=== PATIENT | male | born 1955 | race Caucasian/White ===

== ENCOUNTER 2021-05-27 09:14 | Inpatient (IN) | payer MEDICARE, MEDICAID ==
[~2021-05-27] VITALS: Ht 182.9 cm; Wt 86.6 kg
--- NOTE | 2021-05-27 09:14 | NUR ---
PT [facility] FROM [facility] C/O AGITATION WHILE ON DIALYSIS. PT GOT 1 AND 1/2 HOUR OF DIALYSIS. PT IS AAOX1. NOT IN RESPIRATORY DISTRESS, V/S STABLE, KEPT RESTED AND COMFORTABLE. WILL CONTINUE TO MONITOR.
--- NOTE | 2021-05-27 09:29 | NUR ---
SEEN AND EXAMINED BY DR FELTON
--- NOTE | 2021-05-27 09:35 | NUR ---
PATIENT SCREAMING AND ASKING FOR FOOD
[2021-05-27] MEDS ORDERED: ZIPRASIDONE MESYLATE 20 MG/VIAL VIAL IM ONE ×4 (09:36→12:00)
--- NOTE | 2021-05-27 09:50 | NUR ---
AUTO INSPECTION SPECIALIST AT BEDSIDE
--- NOTE | 2021-05-27 10:20 | NUR ---
COVID SWAB DONE AND SENT TO LAB
--- NOTE | 2021-05-27 10:24 | NUR ---
ER PHLEB AT BEDSIDE FOR BLOOD DRAW.
[2021-05-27 10:44] LABS: BASOPHILS % (AUTO) 0.7 % (0.0-2.0); EOSINOPHILS % (AUTO) 2.4 % (0.0-6.0); HEMATOCRIT 25 % (39-51); HEMOGLOBIN 8.3 g/dL (13.5-17.5); LYMPHOCYTES # (AUTO) 1.3 K/uL (0.8-4.8); LYMPHOCYTES % (AUTO) 18.6 % (20.0-44.0); MEAN CORPUSCULAR HGB CONC 34 g/dl (31.0-36.0); MEAN CORPUSCULAR VOLUME 94 fL (80-96); MONOCYTES # (AUTO) 1.6 K/uL (0.1-1.30); MONOCYTES % (AUTO) 24.2 % (2.0-12.0); NEUTROPHILS # (AUTO) 3.7 K/uL (1.8-8.9); NEUTROPHILS % (AUTO) 54.1 % (43.0-81.0); PLATELET COUNT (AUTO) 136 K/uL (150-450); RED BLOOD CELL COUNT(AUTO) 2.61 MIL/uL (4.5-6.0); WHITE BLOOD COUNT (AUTO) 6.8 K/uL (4.3-11.0)
[2021-05-27 11:17] LABS: CALCIUM, SERUM 7.1 mg/dL (8.5-10.1); CREATININE 5.6 mg/dL (0.6-1.3); POTASSIUM 4.1 mmol/L (3.5-5.1)
[2021-05-27] MEDS ORDERED: WATER FOR INJECTION,STERILE 10 ML ONE (11:36)
--- NOTE | 2021-05-27 12:37 | NUR ---
LUNCH TRAY PROVIDED. TOLERATED WELL
--- NOTE | 2021-05-27 12:41 | NUR ---
report given to pauline abraham for kim.
[2021-05-27 13:31] LABS: ACETAMINOPHEN 3 ug/ml (10-30); ALCOHOL, BLOOD < 3 mg/dL (0-0)
[2021-05-27 15:28] LABS: EOSINOPHILS % (MANUAL) 3 % (0-4); LYMPHOCYTES % (MANUAL) 12 % (16-48); MONOCYTES % (MANUAL) 21 % (0-11.0); NEUTROPHILS % (MANUAL) 64 (42-76)
--- NOTE | 2021-05-27 15:29 | NUR ---
[facility] CALLED ETA 60 MINS.
[2021-05-27] MEDS ORDERED: ACETAMINOPHEN 325 MG TABLET PO PRN (15:30)
[2021-05-27] MEDS ORDERED: ZOLPIDEM TARTRATE 5 MG TABLET PO PRN (15:30)
[2021-05-27] MEDS ORDERED: Z GUARD REMEDY 4 OZ OINT TP PRN (15:30)
[2021-05-27] MEDS ORDERED: MAGNESIUM HYDROXIDE 30 ML UDC PO PRN (15:30)
[2021-05-27] MEDS ORDERED: MAG HYDROX/AL HYDROX/SIMETH 30 ML UDC PO PRN (15:30)
[2021-05-27] MEDS ORDERED: ONDANSETRON HCL/PF 4 MG/2 ML VIAL IVP PRN (15:30)
--- NOTE | 2021-05-27 15:40 | NUR ---
REPORT GIVEN TO RAH KEE OF [facility].
--- NOTE | 2021-05-27 16:54 | NUR ---
REPORT GIVEN TO EMT FOR PT TRANSFER TO [facility].
[2021-05-27 16:55] VITALS: BP 145/87
== END 2021-05-27 17:55 | DRG 885 ==
LOC: MERGE 09:14 → ER 09:59 → TELE 12:27
PROVIDERS: ADMIT Family Medicine; ATTEND Family Medicine
DX: F25.9 Schizoaffective disorder, unspecified (principal); N18.6 End stage renal disease; G93.41 Metabolic encephalopathy; F05 Delirium due to known physiological condition; E83.51 Hypocalcemia; E11.22 Type 2 diabetes mellitus with diabetic chronic kidney disease; Z99.2 Dependence on renal dialysis; Z20.822 Contact with and (suspected) exposure to COVID-19; J44.9 Chronic obstructive pulmonary disease, unspecified; G40.909 Epilepsy, unspecified, not intractable, without status epilepticus; Z86.711 Personal history of pulmonary embolism; R26.9 Unspecified abnormalities of gait and mobility; M19.90 Unspecified osteoarthritis, unspecified site; Z86.718 Personal history of other venous thrombosis and embolism; Z88.8 Allergy status to other drugs, medicaments and biological substances; F41.9 Anxiety disorder, unspecified; D63.8 Anemia in other chronic diseases classified elsewhere; Z91.19 Patient's noncompliance with other medical treatment and regimen
CPT/HCPCS: 36415; 71045-TC; 80048-TC; 85025-TC; C9803; G0378; G0480; J3486

== ENCOUNTER 2021-05-30 12:32 | Inpatient (IN) | payer MEDICARE, OTHER ==
[~2021-05-30] VITALS: Ht 182.9 cm; Wt 88.5 kg
[~2021-05-30 12:32] MED LIST: ACET325T53 PO; AMIN887L PO; ASCO500C17 PO; BENZ1TAB7 PO; DIVA250T PO; FERR325T23 PO; LEVE500T9 PO; MAGN400O6 PO; MINE133E RC; MULT-439 PO; PHEN100C4 PO; RISP1TAB7 PO
--- NOTE | 2021-05-30 12:35 | NUR ---
TO ER BED 11. BIB [facility] FOR R FEMORAL PERMACATH MALFUNCTION. PT ATTACHED TO MONITOR. BRATHING IS EVEN AND UNLABORED ON ROOM AIR. WARM BLANKET PROVIDED FOR COMFORT. WILL CONTINUE TO MONITOR.
--- NOTE | 2021-05-30 12:54 | NUR ---
COVID TEST COLLECTED AND SENT
[2021-05-30 13:03] LABS: BASOPHILS # (AUTO) 0.1 K/uL (0.0-0.2); BASOPHILS % (AUTO) 1.2 % (0.0-2.0); EOSINOPHILS % (AUTO) 6.3 % (0.0-6.0); HEMATOCRIT 25 % (39-51); HEMOGLOBIN 8.1 g/dL (13.5-17.5); LYMPHOCYTES # (AUTO) 1.6 K/uL (0.8-4.8); LYMPHOCYTES % (AUTO) 26.2 % (20.0-44.0); MEAN CORPUSCULAR HGB CONC 33 g/dl (31.0-36.0); MEAN CORPUSCULAR VOLUME 97 fL (80-96); MONOCYTES # (AUTO) 0.7 K/uL (0.1-1.30); NEUTROPHILS # (AUTO) 3.4 K/uL (1.8-8.9); NEUTROPHILS % (AUTO) 55.3 % (43.0-81.0); PLATELET COUNT (AUTO) 177 K/uL (150-450); RED BLOOD CELL COUNT(AUTO) 2.55 MIL/uL (4.5-6.0); WHITE BLOOD COUNT (AUTO) 6.2 K/uL (4.3-11.0)
[2021-05-30] MEDS ORDERED: SEVE800T8 PO (13:14)
[2021-05-30] MEDS ORDERED: ACET-868 PO (13:14)
[2021-05-30] MEDS ORDERED: DIVA125C2 PO (13:14)
[2021-05-30] MEDS ORDERED: AMIN30LI2 PO (13:14)
[2021-05-30] MEDS ORDERED: LORA2VIA11 IM (13:14)
[2021-05-30] MEDS ORDERED: FOLI0.8T2 PO (13:14)
[2021-05-30] MEDS ORDERED: PHEN100C4 PO (13:14)
[2021-05-30] MEDS ORDERED: POVI3780 TP (13:14)
[2021-05-30] MEDS ORDERED: BISA10SU11 RC (13:14)
[2021-05-30] MEDS ORDERED: LEVE500T9 PO (13:14)
[2021-05-30] MEDS ORDERED: ASCO-495 PO (13:14)
[2021-05-30] MEDS ORDERED: BENZ1TAB7 PO (13:14)
[2021-05-30] MEDS ORDERED: MAGN400O6 PO (13:14)
[2021-05-30] MEDS ORDERED: LORA-259 PO (13:14)
[2021-05-30] MEDS ORDERED: MAG30ORA PO (13:14)
[2021-05-30] MEDS ORDERED: FERR325T23 PO (13:14)
[2021-05-30 13:19] LABS: CALCIUM, SERUM 7.8 mg/dL (8.5-10.1); CREATININE 6.5 mg/dL (0.6-1.3); POTASSIUM 5.1 mmol/L (3.5-5.1)
--- NOTE | 2021-05-30 13:58 | NUR ---
FOOD PROVIDED TO PT
[2021-05-30] MEDS ORDERED: LORAZEPAM INJ 2 MG/ML VIAL IV PRN (14:00)
[2021-05-30] MEDS ORDERED: BISACODYL SUPP (10 MG) 10 MG/SUPP.RECT SUPP.RECT RC PRN (14:00)
[2021-05-30] MEDS ORDERED: ACETAMINOPHEN 325 MG TABLET PO PRN (14:00)
[2021-05-30] MEDS ORDERED: MAG HYDROX/AL HYDROX/SIMETH 30 ML UDC PO PRN (14:00)
--- NOTE | 2021-05-30 14:48 | NUR ---
bed assigned 325-1
--- NOTE | 2021-05-30 14:56 | NUR ---
REPORT GIVEN TO GRAY FOR STEVEN
--- NOTE | 2021-05-30 15:07 | NUR ---
PT TRANSPORTED TO [facility] IN STABLE CONDITION
[2021-05-30] MEDS: FERROUS SULFATE (325 MG) 325 MG/TAB TABLET PO SCH (17:31)
[2021-05-30] MEDS: SEVELAMER CARBONATE 800 MG TABLET PO SCH (17:31)
[2021-05-30] MEDS: LEVETIRACETAM (250 MG) 250 MG TABLET PO SCH (17:31)
[2021-05-30] MEDS: PROSOURCE / PROSTAT (PYXIS) 30 ML UDC GT SCH (17:32)
[2021-05-30 18:00] VITALS: BP 148/94
[2021-05-30] MEDS: PHENYTOIN EXTENDED RELEASE 100 MG CAPSULE PO SCH (18:24)
--- NOTE | 2021-05-30 19:45 | NUR ---
TRAVEL REGISTERED NURSE PACU OPENING NOTES PATIENT RECEIVED RESTING IN BED, SLEEPING, EASILY AROUSABLE; A/OX2-3; BREATHING EVEN AND UNLABORED; NO SOB NOTED; NO DISTRESS NOTED; TOLERATING ROOM AIR WELL; PATIENT ABLE TO MAKE NEEDS KNOWN; TELE MONITOR READS NSR 70S; LAC #20 INTACT AND PATENT, FLUSHING WELL; MIDLINE NOT FLUSHING; MD AWARE, CHARGE NURSE AWARE; WILL OBTAIN CONSENT FOR LONG-TERM PERMACATH PLACEMENT TONIGHT; PATIENT IS AWARE HE IS IN NEED OF PERMACATH PLACEMENT IN ORDER TO RECEIVE HEMODIALYSIS; SAFETY PRECAUTIONS IMPLEMENTED; BED LOCKED IN LOW POSITION; SIDE RAILS X2 UP; CALL LIGHT WITHIN REACH; WILL CONT TO MONITOR
[2021-05-30 20:00] VITALS: BP_SYST 102; BP_SYST 139; BP_DIAS 45; BP_DIAS 89
[2021-05-30] MEDS: BENZTROPINE MESYLATE (1 MG) 1 MG TABLET PO SCH (21:32)
[2021-05-30] MEDS: DIVALPROEX SODIUM 125 MG CAP.SPRINK PO SCH (21:32)
--- NOTE | 2021-05-30 21:40 | NUR ---
GARMENT INSPECTOR NOTES OBTAINED CONSENT FROM PATIENT FOR PERMACATH PLACEMENT; PATIENT ABLE TO SIGN ON HIS OWN; WITNESSED BY FRANCE Manuel RN WELL; CHARGE NURSE AWARE;
[2021-05-31] VITALS: BP 144/71
--- NOTE | 2021-05-31 01:47 | NUR ---
ARTIST SUSPECT NOTES PATIENT ATTEMPTING TO GET OUT OF BED ON HIS OWN; PATIENT WOKE UP AND VERBALIZED HE NEEDED TO USE THE RESTROOM; NUCLEAR LOGGING ENGINEER AWARE AND AT BEDSIDE, ASSISTING PATIENT. PATIENT HAS UNSTEADY GAIT; FALL RISK; SAFETY PRECAUTIONS IMPLEMENTED; WILL CONT TO MONITOR
[2021-05-31 04:00] VITALS: BP 139/85
--- NOTE | 2021-05-31 07:01 | NUR ---
TUBER MACHINE CUTTER CLOSING NOTES PATIENT RESTING IN BED, SLEEPING, EASILY AROUSABLE; A/OX2-3; BREATHING EVEN AND UNLABORED; NO SOB NOTED; NO DISTRESS NOTED; TOLERATING ROOM AIR WELL; PATIENT ABLE TO MAKE NEEDS KNOWN; TELE MONITOR READS NSR 70S; LAC #20 INTACT AND PATENT, FLUSHING WELL; MIDLINE NOT FLUSHING; MD AWARE, CHARGE NURSE AWARE; CONSENT FOR LONG-TERM PERMACATH PLACEMENT OBTAINED ALL NEEDS RENDERED; SAFETY PRECAUTIONS IMPLEMENTED; BED LOCKED IN LOW POSITION; SIDE RAILS X2 UP; CALL LIGHT WITHIN REACH; WILL ENDORSE STEVEN TO ONCOMING SHIFT
--- NOTE | 2021-05-31 07:40 | NUR ---
TOP TRIMMER OPENING NOTES PATIENT RESTING IN BED, AWAKE; A/OX2; BREATHING EVEN AND UNLABORED; NO SOB NOTED; NO DISTRESS NOTED; TOLERATING ROOM AIR WELL; PATIENT ABLE TO MAKE NEEDS KNOWN; TELE MONITOR READS NSR 77; LAC #20 INTACT AND PATENT, FLUSHING WELL; MIDLINE NOT FLUSHING; MD AWARE. CONSENT FOR LONG-TERM PERMACATH PLACEMENT OBTAINED. SAFETY PRECAUTIONS IMPLEMENTED; BED LOCKED IN LOW POSITION; SIDE RAILS X2 UP; CALL LIGHT WITHIN REACH; WILL CONTINUE TO MONITOR PATIENT.
[2021-05-31 08:20] VITALS: BP 153/64
[2021-05-31] MEDS: ASCORBIC ACID 500 MG TABLET PO SCH (08:49)
[2021-05-31] MEDS: FERROUS SULFATE (325 MG) 325 MG/TAB TABLET PO SCH ×2 (08:49→17:00)
[2021-05-31] MEDS: MAGNESIUM HYDROXIDE 30 ML UDC PO SCH (08:50)
[2021-05-31] MEDS: LEVETIRACETAM (250 MG) 250 MG TABLET PO SCH ×2 (08:50→17:00)
[2021-05-31] MEDS: VIT B CMPLX 3/FA/VIT C/BIOTIN 1 TAB TABLET PO SCH (08:51)
[2021-05-31] MEDS: PHENYTOIN EXTENDED RELEASE 100 MG CAPSULE PO SCH ×3 (08:51→17:00)
[2021-05-31] MEDS: PROSOURCE / PROSTAT (PYXIS) 30 ML UDC GT SCH ×3 (08:51→17:00)
[2021-05-31] MEDS: DIVALPROEX SODIUM 125 MG CAP.SPRINK PO SCH ×2 (08:51→20:52)
[2021-05-31] MEDS: SEVELAMER CARBONATE 800 MG TABLET PO SCH ×3 (08:51→17:14)
[2021-05-31] MEDS: BETADINE TP SCH (08:53)
[2021-05-31 12:12] VITALS: BP 141/63
[2021-05-31 16:10] VITALS: BP 171/76
--- NOTE | 2021-05-31 18:41 | NUR ---
SAND TEMPERER CLOSING NOTES PATIENT RESTING IN BED, ASLEEP, AWAKEN EASILY; A/OX2; BREATHING EVEN AND UNLABORED; NO SOB NOTED; NO DISTRESS NOTED; TOLERATING ROOM AIR WELL; PATIENT ABLE TO MAKE NEEDS KNOWN; TELE MONITOR READS NSR 90; LAC #20 INTACT AND PATENT, FLUSHING WELL; MIDLINE NOT FLUSHING; MD AWARE. CONSENT FOR LONG-TERM PERMACATH PLACEMENT IN PLACE. ALL NEEDS ATTENDED DURING THE DAY. SAFETY PRECAUTIONS IMPLEMENTED; BED LOCKED IN LOW POSITION; SIDE RAILS X2 UP; CALL LIGHT WITHIN REACH; WILL ENDORSE TO RECEIVING WEIGHER NURSE FOR STEVEN.
--- NOTE | 2021-05-31 19:30 | NUR ---
LAG SCREWER OPENING NOTES RECEIVED PATIENT ON BED, AWAKE, ALERT AND ORIENTED X 3. BREATHING IS EVEN AND NONLABORED. ON TELEMETRY MONITORING VIA EXTERNAL PRESS AND BLOW MACHINE TENDER; SINUS RHYTHM 86. WITH IV ACCESS ON LAC G20; SALINE LOCKED; DRY AND INTACT. CALL LIGHT AND TABLE WITHIN REACH. SIDE RAILS UP X 2. BED PLACED IN LOWEST LOCKED POSITION. SAFETY MEASURES MAINTAINED. WILL CONTINUE TO MONITOR
[2021-05-31 20:00] VITALS: BP_SYST 132; BP_SYST 137; BP_DIAS 84; BP_DIAS 89
[2021-05-31] MEDS: BENZTROPINE MESYLATE (1 MG) 1 MG TABLET PO SCH (21:45)
[2021-06-01] VITALS: BP 143/70
[2021-06-01 04:00] VITALS: BP 146/76
--- NOTE | 2021-06-01 06:25 | NUR ---
PEDIATRIC ONCOLOGY NURSE CLOSING NOTES PATIENT IS ON BED; AWAKE, ALERT AND ORIENTED X 2-3. BREATHING IS EVEN AND NONLABORED. NO SOB NOTED. NO DISTRESS NOTED. ON ROOM AIR; TOLERATING WELL. ABLE TO MAKE NEEDS KNOWN. DENIES ANY PAIN. ON TELE MONITOR WITH READING OF NSR 68; WITH IV ACCESS AT LAC G20; INTACT, DRY AND PATENT; SALINE LOCKED. ML NOT FLUSHING. MD AWARE. NEEDS ATTENDED. SAFETY AND FALL PRECAUTIONS IMPLEMENTED; CALL LIGHT AND TABLE WITHIN REACH. SIDE RAILS UP X 2. BED PLACED IN LOWEST LOCKED POSITION. WILL ENDORSED TO MORNING SHIFT FOR CONTINUITY OF CARE.
[2021-06-01 06:44] LABS: BASOPHILS # (AUTO) 0.1 K/uL (0.0-0.2); BASOPHILS % (AUTO) 1.8 % (0.0-2.0); EOSINOPHILS % (AUTO) 5.5 % (0.0-6.0); HEMATOCRIT 23 % (39-51); HEMOGLOBIN 7.7 g/dL (13.5-17.5); LYMPHOCYTES # (AUTO) 1.8 K/uL (0.8-4.8); LYMPHOCYTES % (AUTO) 30.8 % (20.0-44.0); MEAN CORPUSCULAR HGB CONC 34 g/dl (31.0-36.0); MEAN CORPUSCULAR VOLUME 93 fL (80-96); MONOCYTES # (AUTO) 0.7 K/uL (0.1-1.30); MONOCYTES % (AUTO) 12.2 % (2.0-12.0); NEUTROPHILS # (AUTO) 2.8 K/uL (1.8-8.9); NEUTROPHILS % (AUTO) 49.7 % (43.0-81.0); PLATELET COUNT (AUTO) 149 K/uL (150-450); RED BLOOD CELL COUNT(AUTO) 2.42 MIL/uL (4.5-6.0); WHITE BLOOD COUNT (AUTO) 5.7 K/uL (4.3-11.0)
--- NOTE | 2021-06-01 07:30 | NUR ---
DIGITAL STRATEGIST OPENING NOTES RECEIVED PATIENT ON BED AWAKE AND A/O X2-3. ON ROOM AIR TOLERATING WELL. NO SOB NOTED. NOT IN DISTRESS. WITH NO COMPLAINTS OF PAIN OR DISCOMFORT AT THIS TIME. WITH IV ACCESS AT LEFT AC G20 SALINE LOCKED, PATENT AND INTACT. ON TELE MONITOR CURRENTLY READING SINUS RHYTHM AT 62BPM. SAFETY MEASURES IN PLACED. CALL LIGHT WITHIN REACH. BED ON LOWEST LOCKED POSITION, SIDE RAILS UP X2. WILL CONTINUE TO MONITOR.
[2021-06-01 07:40] LABS: CALCIUM, SERUM 7.7 mg/dL (8.5-10.1); CREATININE 6.7 mg/dL (0.6-1.3); PHOSPHORUS 4.7 mg/dL (2.5-4.9); POTASSIUM 4.7 mmol/L (3.5-5.1)
[2021-06-01 08:00] VITALS: BP 159/94
[2021-06-01] MEDS: BETADINE TP SCH (09:00)
[2021-06-01] MEDS: DIVALPROEX SODIUM 125 MG CAP.SPRINK PO SCH ×2 (09:42→21:13)
[2021-06-01] MEDS: MAGNESIUM HYDROXIDE 30 ML UDC PO SCH (09:42)
[2021-06-01] MEDS: FERROUS SULFATE (325 MG) 325 MG/TAB TABLET PO SCH ×2 (09:42→17:01)
[2021-06-01] MEDS: VIT B CMPLX 3/FA/VIT C/BIOTIN 1 TAB TABLET PO SCH (09:43)
[2021-06-01] MEDS: ASCORBIC ACID 500 MG TABLET PO SCH (09:43)
[2021-06-01] MEDS: LEVETIRACETAM (250 MG) 250 MG TABLET PO SCH ×2 (09:43→17:01)
[2021-06-01] MEDS: PHENYTOIN EXTENDED RELEASE 100 MG CAPSULE PO SCH ×3 (09:43→17:01)
[2021-06-01] MEDS: SEVELAMER CARBONATE 800 MG TABLET PO SCH ×3 (09:44→17:01)
[2021-06-01] MEDS: PROSOURCE / PROSTAT (PYXIS) 30 ML UDC GT SCH ×3 (09:45→18:28)
[2021-06-01] MEDS: LORAZEPAM 1 MG TABLET PO PRN (10:45)
[2021-06-01] MEDS ORDERED: ANESTHESIA TRAY IN PYXIS 1 EA TRAY MC ONE (14:26)
[2021-06-01] MEDS ORDERED: IOHEXOL 240MG/ML 0 ML IV ONE (14:26)
[2021-06-01] MEDS ORDERED: LIDOCAINE 1% INJ 50 ML MDV IJ ONE (14:27)
[2021-06-01] MEDS ORDERED: HEPARIN SODIUM, PORCINE 1,000 UNIT/ML VIAL ONE (14:27)
[2021-06-01] MEDS ORDERED: FENTANYL PF 100MCG/2ML AMPUL ONE (14:40)
[2021-06-01 16:00] VITALS: BP 154/72
--- NOTE | 2021-06-01 19:05 | NUR ---
ENTRY LEVEL MANAGEMENT CLOSING NOTES PATIENT ON BED AWAKE AND A/O X2-3. ON ROOM AIR TOLERATING WELL. NO SOB NOTED. NOT IN DISTRESS. WITH NO COMPLAINTS OF PAIN OR DISCOMFORT AT THIS TIME. WITH IV ACCESS AT LEFT AC G20 SALINE LOCKED, PATENT AND INTACT. ON TELE MONITOR CURRENTLY READING SINUS RHYTHM AT 60BPM. DUE MEDS GIVEN. SAFETY MEASURES IN PLACED. CALL LIGHT WITHIN REACH. BED ON LOWEST LOCKED POSITION, SIDE RAILS UP X2. WILL ENDORSE TO NEXT SHIFT FOR STEVEN.
--- NOTE | 2021-06-01 19:30 | NUR ---
DIVIDER OPERATOR NOTES SR-76 ON TELE MONITOR,RECEIVED ON BED A/O X2-3,SLEEPING,AROUSABLE TO VERBAL STIMULI.HD NURSE AT BEDSIDE.PATIENT S/O RIGHT CHEST WALL PERMA CATH PLACEMENT,OKAY TO USE FOR HD TREATMENT TODAY.REPORTED BY WAGNER LOWE,PATIENT REFUSED VITAL SIGNS.AMBULATE WITH STANDBY ASSIST.SALINE LOCK LEFT AC INTACT AND PATENT.CALL LIGHT IN REACH,NEEDS ANTICIPATED.
[2021-06-01 20:00] VITALS: BP 164/69
[2021-06-01] MEDS: BENZTROPINE MESYLATE (1 MG) 1 MG TABLET PO SCH (21:13)
--- NOTE | 2021-06-01 22:40 | NUR ---
PODIATRY ASSISTANT NOTES COMPLETED 3 HOURS OF HD TREATMENT,TOLERATED WELL.,TAKEN OUT 2LITERS.NO SOB NOTED,VITAL SIGNS STABLE.
[2021-06-02] VITALS: BP 129/87
[2021-06-02 06:31] LABS: BASOPHILS # (AUTO) 0.1 K/uL (0.0-0.2); BASOPHILS % (AUTO) 1.3 % (0.0-2.0); EOSINOPHILS % (AUTO) 4.8 % (0.0-6.0); HEMATOCRIT 23 % (39-51); LYMPHOCYTES # (AUTO) 1.3 K/uL (0.8-4.8); MEAN CORPUSCULAR HGB CONC 34 g/dl (31.0-36.0); MEAN CORPUSCULAR VOLUME 93 fL (80-96); MONOCYTES # (AUTO) 0.7 K/uL (0.1-1.30); MONOCYTES % (AUTO) 11.7 % (2.0-12.0); NEUTROPHILS # (AUTO) 3.4 K/uL (1.8-8.9); NEUTROPHILS % (AUTO) 59.2 % (43.0-81.0); PLATELET COUNT (AUTO) 182 K/uL (150-450); WHITE BLOOD COUNT (AUTO) 5.8 K/uL (4.3-11.0)
--- NOTE | 2021-06-02 06:31 | NUR ---
BENEFITS OFFICER NOTES IN ROOM SLEEPING,AROUSABLE TO VERBAL STIMULI,BREATHING REGULAR,NOT IN ANY FORM OF DISTRESS,POSSIBLE HD AGAIN TODAY BEFORE DISCHARGE.NO FALL,NO INJURY,IN NO ACUTE DISTRESS.CALL LIGHT IN REACH,NEEDS ATTENDED
--- NOTE | 2021-06-02 07:37 | NUR ---
LOG FEEDER OPENING NOTES RECEIVED PATIENT IN BED RESTING, A/O X2-3. ON ROOM AIR TOLERATING WELL WITH NO S/SX OF RESPIRATORY DISTRESS NOTED. NO COMPLAINT OF PAIN VERBALIZED AT THIS TIME. LAC G#20 SALINE LOCKED, INTACT AND PATENT. ON TELE MONITOR CURRENTLY READING SR 65 BPM. SAFETY MEASURES IN PLACE: BED IN LOWEST POSITION, WHEELS ARE LOCKED, SIDE RAILS UP X2, CALL LIGHT WITHIN REACH. PATIENT RECEIVED HD YESTERDAY WITH 2L OUTPUT, PLAN TO HAVE HD AGAIN TODAY. WILL CONTINUE PLAN OF CARE
[2021-06-02 08:00] VITALS: BP 133/55
[2021-06-02] MEDS: SEVELAMER CARBONATE 800 MG TABLET PO SCH ×2 (08:09→13:37)
[2021-06-02] MEDS: VIT B CMPLX 3/FA/VIT C/BIOTIN 1 TAB TABLET PO SCH (08:09)
[2021-06-02] MEDS: PHENYTOIN EXTENDED RELEASE 100 MG CAPSULE PO SCH ×3 (08:09→17:00)
[2021-06-02] MEDS: FERROUS SULFATE (325 MG) 325 MG/TAB TABLET PO SCH ×2 (08:09→17:00)
[2021-06-02] MEDS: LEVETIRACETAM (250 MG) 250 MG TABLET PO SCH ×2 (08:09→17:00)
[2021-06-02] MEDS: MAGNESIUM HYDROXIDE 30 ML UDC PO SCH (08:09)
[2021-06-02] MEDS: ASCORBIC ACID 500 MG TABLET PO SCH (08:10)
[2021-06-02] MEDS: DIVALPROEX SODIUM 125 MG CAP.SPRINK PO SCH (08:10)
[2021-06-02 08:46] LABS: CALCIUM, SERUM 7.7 mg/dL (8.5-10.1); CREATININE 5.1 mg/dL (0.6-1.3)
[2021-06-02] MEDS: PROSOURCE / PROSTAT (PYXIS) 30 ML UDC GT SCH ×3 (09:00→17:00)
[2021-06-02] MEDS: BETADINE TP SCH (09:00)
[2021-06-02 10:06] LABS: POTASSIUM 4.8 mmol/L (3.5-5.1)
[2021-06-02 12:00] VITALS: BP 127/71
[2021-06-02] MEDS: LORAZEPAM 1 MG TABLET PO PRN (14:55)
--- NOTE | 2021-06-02 18:00 | NUR ---
CRUISE AGENT NOTES PATIENT IS MEDICALLY STABLE FOR DC. WILL BE GOING TO [facility]. CALLED AND GAVE REPORT TO RAH NUÑEZ. PATIENT WAS EDUCATED ON DISCHARGE INSTRUCTIONS. PATIENT VERBALIZED UNDERSTANDING OF CARE. EXIT CARE PACKET WAS PROVIDED. WILL CONTINUE HD AND MEDICATIONS AT SNF. ALL LINES REMOVED AND DOCUMENTS SIGNED. PATIENT WAS TRANSPORTED VIA GURNEY/AMBULANCE ACCOMPANIED BY 2 EMT.
== END 2021-06-02 18:14 | DRG 673 ==
LOC: ER 12:39 → TELE 14:52
PROVIDERS: ADMIT Nurse Practitioner Acute Care; ATTEND Nurse Practitioner Acute Care
PROC: 0JHD3XZ Insertion of Tunneled Vascular Access Device into Right Upper Arm Subcutaneous Tissue and Fascia, Percutaneous Approach (ICD-10-PCS; principal; 2021-06-01)
PROC: 05HM33Z Insertion of Infusion Device into Right Internal Jugular Vein, Percutaneous Approach (ICD-10-PCS; 2021-06-01)
PROC: B513YZA Fluoroscopy of Right Jugular Veins using Other Contrast, Guidance (ICD-10-PCS; 2021-06-01)
PROC: 5A1D70Z Performance of Urinary Filtration, Intermittent, Less than 6 Hours Per Day (ICD-10-PCS; 2021-06-01)
DX: T82.41XA Breakdown (mechanical) of vascular dialysis catheter, initial encounter (principal); N18.6 End stage renal disease; G93.40 Encephalopathy, unspecified; Y71.2 Prosthetic and other implants, materials and accessory cardiovascular devices associated with adverse incidents; G40.909 Epilepsy, unspecified, not intractable, without status epilepticus; F25.9 Schizoaffective disorder, unspecified; Z20.822 Contact with and (suspected) exposure to COVID-19; Y92.129 Unspecified place in nursing home as the place of occurrence of the external cause; Z99.2 Dependence on renal dialysis; J44.9 Chronic obstructive pulmonary disease, unspecified; Z86.711 Personal history of pulmonary embolism; M19.90 Unspecified osteoarthritis, unspecified site; F41.9 Anxiety disorder, unspecified; D53.9 Nutritional anemia, unspecified; F31.9 Bipolar disorder, unspecified; Z79.899 Other long term (current) drug therapy; R26.9 Unspecified abnormalities of gait and mobility
CPT/HCPCS: 36415; 71045-TC; 80048-TC; 80185-TC; 84100-TC; 85025-TC; 85730-TC; 86706; 86850-TC; 87081-TC; 87340; 90935-TC; 97116-TC; 97530-TC; C1750; C1757; C1769; C1894; C9803; G0378; J0690; J1644; J2704; J3010; J3490; J7030; Q9966

== ENCOUNTER 2021-07-14 21:24 | Inpatient (IN) | payer MEDICARE, OTHER ==
[~2021-07-14] VITALS: Ht 175.3 cm; Wt 86.2 kg
[~2021-07-14 21:24] MED LIST changes: +ACET-868 PO; +AMIN30LI2 PO; +ASCO-495 PO; +BISA10SU11 RC; +DIVA125C2 PO; +FOLI0.8T2 PO; +LORA-259 PO; +LORA2VIA11 IM; +MAG30ORA PO; +POVI3780 TP; +SEVE800T8 PO
--- NOTE | 2021-07-14 21:33 | NUR ---
[facility] FROM [facility] PER DR MAYES, HGB 7.0 HCT 19.9. PT A/O X2. MD TO SEE PT
[2021-07-14 22:39] LABS: BASOPHILS # (AUTO) 0.1 K/uL (0.0-0.2); BASOPHILS % (AUTO) 1.4 % (0.0-2.0); EOSINOPHILS % (AUTO) 5.1 % (0.0-6.0); LYMPHOCYTES # (AUTO) 2.2 K/uL (0.8-4.8); LYMPHOCYTES % (AUTO) 37.4 % (20.0-44.0); MEAN CORPUSCULAR HGB CONC 34 g/dl (31.0-36.0); MEAN CORPUSCULAR VOLUME 95 fL (80-96); MONOCYTES # (AUTO) 0.6 K/uL (0.1-1.30); MONOCYTES % (AUTO) 11.2 % (2.0-12.0); NEUTROPHILS # (AUTO) 2.6 K/uL (1.8-8.9); NEUTROPHILS % (AUTO) 44.9 % (43.0-81.0); PLATELET COUNT (AUTO) 183 K/uL (150-450); WHITE BLOOD COUNT (AUTO) 5.8 K/uL (4.3-11.0)
[2021-07-14 22:44] LABS: RED BLOOD CELL COUNT(AUTO) 1.94 MIL/uL (4.5-6.0)
[2021-07-14 22:48] LABS: HEMATOCRIT 18 % (39-51); HEMOGLOBIN 6.2 g/dL (13.5-17.5)
--- NOTE | 2021-07-14 22:48 | NUR ---
CRITICAL LAB HGB 6.2, HCT 18. MD AWARE
[2021-07-14 23:09] LABS: ALBUMIN 2.5 g/dL (3.4-5.0); BILIRUBIN,DIRECT 0.1 mg/dL (0.0-0.2); BILIRUBIN,TOTAL 0.2 mg/dL (0.2-1.0); CALCIUM, SERUM 8.7 mg/dL (8.5-10.1); POTASSIUM 5.1 mmol/L (3.5-5.1); TOTAL PROTEIN, SERUM 5.5 g/dL (6.4-8.2)
--- NOTE | 2021-07-14 23:17 | NUR ---
COVID SWAB COLLECTED AND SENT
[2021-07-14] MEDS ORDERED: MAGNESIUM HYDROXIDE 30 ML UDC PO PRN (23:30)
[2021-07-14] MEDS ORDERED: ACETAMINOPHEN 325 MG TABLET PO PRN (23:30)
[2021-07-14] MEDS ORDERED: Z GUARD REMEDY 4 OZ OINT TP PRN (23:30)
[2021-07-14] MEDS ORDERED: MAG HYDROX/AL HYDROX/SIMETH 30 ML UDC PO PRN (23:30)
[2021-07-14] MEDS ORDERED: LORAZEPAM INJ 2 MG/ML VIAL IV PRN (23:30)
[2021-07-14] MEDS ORDERED: ONDANSETRON HCL/PF 4 MG/2 ML VIAL IVP PRN (23:30)
--- NOTE | 2021-07-14 23:40 | NUR ---
BLOOD TRANSFUSION STARTED AT 2340, VERIFIED AND READ BACK WITH CLS, AND KENNY RN, VS STABLE. WILL CONT TO MONITOR PER PROTOCOL
--- NOTE | 2021-07-15 01:14 | NUR ---
REPORT GIVEN TO RAH GUEVARA
--- NOTE | 2021-07-15 01:35 | NUR ---
TELEPHONE CALL TO SHRADDHA ANDREWS AT TO VERIFY PT CODE STATUS, SPOKE WITH FLORES, STATED PT IS FULL CODE AND WILL FAX OVER COPY OF POLST.
--- NOTE | 2021-07-15 01:43 | NUR ---
pt transferred to [facility] surg 325 via BLS protocol, in stable condition.
--- NOTE | 2021-07-15 03:05 | NUR ---
/DENISSE/RN RECEIVED PATIENT FROM E.R. VIA [facility] AT 0142. PATIENT WAS AWAKE, ALERT, ORIENTED, TO PERSON ONLY, BLOOD CONTAINER WAS ALREADY EMPTY WHEN PATIENT ARRIVED THE UNIT, I RUN THE NS TO CLEAR THE TUBING. PATIENT MADE COMFORTABLE IN BED, PUT ON THE HOSPITAL GOWN, PHYSICAL ASSESSMENT WAS DONE, PHOTOS TAKEN, UNABLE TO OBTAIN MUCH HISTORY FROM THE PATIENT MOST OF HIS ANSWERS WERE "I FORGOT". FALL PRECAUTIONS PER PROTOCOL IMPLEMENTED. TAUGHT THE USE OF CALL LIGHT AND PLACED IT AT BEDSIDE WITHIN REACH. WILL MONITOR. Addendum: 07/15/21 at 0347 by SHAW BAILEY RN NO DOCUMENTATION ON THE BLOOD TRANSFUSION FROM E.R. ENDED THE TRANSFUSION, VITAL SIGNS BP 154/97, HR 72, HR 18, TEMP 98.0, O2 SAT 100%.
[2021-07-15 03:39] VITALS: BP 154/97
--- NOTE | 2021-07-15 06:40 | NUR ---
MS/TELE/RN PATIENT AWAKE, NO C/O PAIN, NO SIGNS OF DISTRESS NOTED, CALL LIGHT IN REACH, ALL NEEDS ATTENDED AT THIS TIME, WILL CONTINUE TO MONITOR.
[2021-07-15 08:00] VITALS: BP 143/85
[2021-07-15] MEDS: ASCORBIC ACID 500 MG TABLET PO SCH (08:04)
[2021-07-15] MEDS: risperiDONE 0.25 MG TABLET PO SCH ×3 (08:05→16:00)
[2021-07-15] MEDS: FERROUS SULFATE (325 MG) 325 MG/TAB TABLET PO SCH ×2 (08:06→16:04)
[2021-07-15] MEDS: DIVALPROEX SODIUM 125 MG CAP.SPRINK PO SCH ×2 (08:06→21:39)
[2021-07-15] MEDS: SEVELAMER CARBONATE 800 MG POWD.PACK PO SCH ×3 (08:06→17:12)
[2021-07-15] MEDS: PANTOPRAZOLE 40 MG TABLET.DR PO SCH ×2 (08:06→16:01)
[2021-07-15] MEDS: PHENYTOIN EXTENDED RELEASE 100 MG CAPSULE PO SCH ×3 (08:06→16:00)
[2021-07-15] MEDS: VIT B CMPLX 3/FA/VIT C/BIOTIN 1 TAB TABLET PO SCH (08:07)
[2021-07-15] MEDS: LEVETIRACETAM (250 MG) 250 MG TABLET PO SCH ×2 (08:07→16:01)
[2021-07-15] MEDS: PROSOURCE / PROSTAT (PYXIS) 30 ML UDC PO SCH ×2 (08:07→16:04)
[2021-07-15 08:24] LABS: EOSINOPHILS % (MANUAL) 3 % (0-4); LYMPHOCYTES % (MANUAL) 39 % (16-48); MONOCYTES % (MANUAL) 7 % (0-11.0); NEUTROPHILS % (MANUAL) 51 (42-76)
--- NOTE | 2021-07-15 08:44 | NUR ---
RN NOTES RECEIVED CALL FROM ANDRE HD NURSE; PER ANDRE, WILL DIALYZE PATIENT TODAY, ORDER FOR HD NOTED.
--- NOTE | 2021-07-15 10:45 | NUR ---
RN NOTES PATIENT REFUSED BLOOD DRAW PER PHLEB TECH. WILL RETRY AGAIN LATER.
--- NOTE | 2021-07-15 13:20 | NUR ---
RN NOTES DIALYSIS NURSE AT BEDSIDE FOR ORDERED HD.
[2021-07-15 13:31] LABS: EOSINOPHILS % (AUTO) 4.7 % (0.0-6.0); LYMPHOCYTES # (AUTO) 1.1 K/uL (0.8-4.8); LYMPHOCYTES % (AUTO) 24.7 % (20.0-44.0); MEAN CORPUSCULAR HGB CONC 35 g/dl (31.0-36.0); MEAN CORPUSCULAR VOLUME 94 fL (80-96); MONOCYTES # (AUTO) 0.4 K/uL (0.1-1.30); MONOCYTES % (AUTO) 9.1 % (2.0-12.0); NEUTROPHILS # (AUTO) 2.6 K/uL (1.8-8.9); NEUTROPHILS % (AUTO) 60.5 % (43.0-81.0); PLATELET COUNT (AUTO) 117 K/uL (150-450); WHITE BLOOD COUNT (AUTO) 4.3 K/uL (4.3-11.0)
[2021-07-15 13:32] LABS: RED BLOOD CELL COUNT(AUTO) 1.71 MIL/uL (4.5-6.0)
[2021-07-15 13:35] LABS: HEMATOCRIT 16 % (39-51); HEMOGLOBIN 5.7 g/dL (13.5-17.5)
--- NOTE | 2021-07-15 13:40 | NUR ---
RN NOTES RECEIVED CALL FROM LAB FOR PATIENT'S HGB/HCT CRITICAL RESULT; DR. CAMPOS IN THE UNIT AND MADE AWARE W/ ORDER TO REPEAT CBC, PERIPHERAL STICK. WITHHOLD PRBC ORDER FOR NOW UNTIL BLOOD DRAW IS DONE. DNP MADE AWARE THAT PATIENT HAS TENDENCY TO REFUSE BLOOD DRAW; STILL CONTINUE TO ASK PER DNP.
[2021-07-15 13:45] LABS: CREATININE 4.6 mg/dL (0.6-1.3); MAGNESIUM 1.7 mg/dL (1.8-2.4); PHOSPHORUS 3.5 mg/dL (2.5-4.9); POTASSIUM 4.1 mmol/L (3.5-5.1)
--- NOTE | 2021-07-15 13:59 | NUR ---
RN NOTES DR. CAMPOS SIGNED BLOOD TRANSFUSION CONSENT.
[2021-07-15 14:33] LABS: EOSINOPHILS % (MANUAL) 6 % (0-4); LYMPHOCYTES % (MANUAL) 26 % (16-48); MONOCYTES % (MANUAL) 10 % (0-11.0); NEUTROPHILS % (MANUAL) 58 (42-76)
[2021-07-15 14:37] LABS: HEMOGLOBIN 7.4 g/dL (13.5-17.5)
--- NOTE | 2021-07-15 14:48 | NUR ---
RN NOTES REPEAT HGB/HCT RESULT OBTAINED AT .06/29; DR. CAMPOS MADE AWARE W/ NNO AT THIS TIME.
[2021-07-15 16:00] VITALS: BP 140/94
--- NOTE | 2021-07-15 18:44 | NUR ---
RN NOTES RESTING IN BED WATCHING TELEVISION. S/P HD TODAY, 2L OUT, TOLERATED PROCEDURE. SCREAMS "I WANT TO GO BACK [facility]"; REALITY ORIENTATION PROVIDED AND REDIRECTED APPLICABLE. HD SITE W/ DRESSING C/D/I. ABLE TO TAKE MEDICATIONS DURING THE DAY. FLUIDS PROVIDED AND ASSISTED W/ TOILETING. SAFETY MEASURES MAINTAINED. WILL ENDORSE TO TILTING HEAD BAND SAWYER RN FOR STEVEN.
[2021-07-15] MEDS: BENZTROPINE MESYLATE (1 MG) 1 MG TABLET PO SCH (21:39)
--- NOTE | 2021-07-15 23:44 | NUR ---
MS RN NOTE PATIENT PULLED OUT IV, ATTEMPTED TO INSERT NEW IV BUT PATIENT KEPT YELLING "LEAVE ME ALONE!". PATIENT PULLED COVERS OVER HEAD AND REFUSED TO ALLOW IV INSERTION. WILL ATTEMPT LATER WHEN PATIENT CALMS DOWN
--- NOTE | 2021-07-16 07:14 | NUR ---
MS RN CLOSING NOTE PATIENT SLEEPING IN BED, ALERT/ORIENTED X 1. PT STABLE ON RA, NO S/S OF DISTRESS OR SOB NOTED, BREATHING EVEN AND UNLABORED. PT REMOVED IV DURING SHIFT, ATTEMPTED TO REINSERT IV X 2 BUT PATIENT KEPT YELLING TO LEAVE HIM ALONE AND COVERED SELF WITH BLANKETS. PATIENT REFUSED AM LAB DRAW, LAB WILL COME BACK LATER TO TRY AGAIN. MEDICATIONS GIVEN ORDERED, PT NEEDS MET THROUGHOUT SHIFT. PATIENT DID NOT HAVE BM FOR STOOL OB SAMPLE. SAFETY MEASURES IN PLACE: CALL LIGHT WITHIN REACH, SIDE RAILS UP X 3, BED LOCKED IN LOWEST POSITION, BED ALARM ON. WILL ENDORSE TO DAY SHIFT NURSE FOR CONTINUITY OF CARE
[2021-07-16] MEDS: ASCORBIC ACID 500 MG TABLET PO SCH (09:20)
[2021-07-16] MEDS: PANTOPRAZOLE 40 MG TABLET.DR PO SCH ×2 (09:20→17:27)
[2021-07-16] MEDS: FERROUS SULFATE (325 MG) 325 MG/TAB TABLET PO SCH ×2 (09:20→17:27)
[2021-07-16] MEDS: SEVELAMER CARBONATE 800 MG POWD.PACK PO SCH ×3 (09:20→17:27)
[2021-07-16] MEDS: VIT B CMPLX 3/FA/VIT C/BIOTIN 1 TAB TABLET PO SCH (09:20)
[2021-07-16] MEDS: PROSOURCE / PROSTAT (PYXIS) 30 ML UDC PO SCH ×2 (09:21→17:00)
[2021-07-16] MEDS: risperiDONE 0.25 MG TABLET PO SCH ×3 (09:21→17:27)
[2021-07-16] MEDS: LEVETIRACETAM (250 MG) 250 MG TABLET PO SCH ×2 (09:21→17:27)
[2021-07-16] MEDS: DIVALPROEX SODIUM 125 MG CAP.SPRINK PO SCH ×2 (09:21→21:44)
[2021-07-16] MEDS: PHENYTOIN EXTENDED RELEASE 100 MG CAPSULE PO SCH ×3 (09:21→17:27)
--- NOTE | 2021-07-16 10:03 | NUR ---
RN NOTES PATIENT REFUSED BLOOD DRAW IN AM FOR AM LABS AND REFUSED IV LINE INSERTION; PATIENT W/ EPISODE OF SCREAMING "I WANT TO GO BACK TO [facility]. I DON'T WANT ANY BLOOD TAKEN FROM ME". PATIENT IS REDIRECTABLE AT THIS TIME. DR. CAMPOS IN THE UNIT AND MADE AWARE OF PATIENT'S REFUSAL.
--- NOTE | 2021-07-16 12:52 | NUR ---
RN NOTES DR. BETH HUGO W/ RECOMMENDATION TO CHANGE ATIVAN TO PO AT THIS TIME.
[2021-07-16] MEDS: LORAZEPAM 1 MG TABLET PO PRN (13:05)
--- NOTE | 2021-07-16 17:16 | NUR ---
RN NOTES CURRENTLY RESTING IN BED; JUST WANTS TO BE LEFT ALONE TO SLEEP PER PATIENT.
--- NOTE | 2021-07-16 18:40 | NUR ---
RN NOTES ABLE TO EAT DINNER, NOT IN ACUTE DISTRESS. ABLE TO TAKE PM MEDICATIONS BUT REFUSED PROSTAT. WENT BACK TO SLEEP AFTERWARDS. SAFETY MEASURES MAINTAINED. WILL ENDORSE TO SLOT FLOOR PERSON RN FOR STEVEN.
[2021-07-16 21:27] VITALS: BP 115/79
[2021-07-16] MEDS: BENZTROPINE MESYLATE (1 MG) 1 MG TABLET PO SCH (21:43)
[2021-07-17] MEDS: LORAZEPAM 1 MG TABLET PO PRN (06:29)
--- NOTE | 2021-07-17 07:20 | NUR ---
MS RN CLOSING NOTE PATIENT SLEEPING IN BED, ALERT/ORIENTED X 1. PT STABLE ON RA, NO S/S OF DISTRESS OR SOB NOTED, BREATHING EVEN AND UNLABORED. PT CONTINUOUSLY YELLING OUT AND TRYING TO GET OUT OF BED, ATIVAN 1 MG PO GIVEN ORDERED. PATIENT REFUSED AM LAB DRAW, LAB WILL COME BACK LATER TO TRY AGAIN. MEDICATIONS GIVEN ORDERED, PT NEEDS MET THROUGHOUT SHIFT. PATIENT DID NOT HAVE BM FOR STOOL OB SAMPLE. SAFETY MEASURES IN PLACE: CALL LIGHT WITHIN REACH, SIDE RAILS UP X 3, BED LOCKED IN LOWEST POSITION, BED ALARM ON. WILL ENDORSE TO DAY SHIFT NURSE FOR CONTINUITY OF CARE
--- NOTE | 2021-07-17 07:30 | NUR ---
PT RECEIVED RESTING COMFORTABLY IN BED. NO S/S OR C/O PAIN OR DISTRESS NOTED. SIDE RAILS UP X2, CALL LIGHT LEFT WITHIN REACH. WILL CONTINUE PLAN OF CARE.
[2021-07-17] MEDS: PHENYTOIN EXTENDED RELEASE 100 MG CAPSULE PO SCH ×2 (08:43→12:03)
[2021-07-17] MEDS: FERROUS SULFATE (325 MG) 325 MG/TAB TABLET PO SCH (08:43)
[2021-07-17] MEDS: VIT B CMPLX 3/FA/VIT C/BIOTIN 1 TAB TABLET PO SCH (08:43)
[2021-07-17] MEDS: risperiDONE 0.25 MG TABLET PO SCH ×2 (08:43→12:03)
[2021-07-17] MEDS: DIVALPROEX SODIUM 125 MG CAP.SPRINK PO SCH (08:43)
[2021-07-17] MEDS: SEVELAMER CARBONATE 800 MG POWD.PACK PO SCH ×2 (08:43→12:03)
[2021-07-17] MEDS: ASCORBIC ACID 500 MG TABLET PO SCH (08:43)
[2021-07-17] MEDS: LEVETIRACETAM (250 MG) 250 MG TABLET PO SCH (08:44)
[2021-07-17] MEDS: PANTOPRAZOLE 40 MG TABLET.DR PO SCH (08:44)
[2021-07-17] MEDS: PROSOURCE / PROSTAT (PYXIS) 30 ML UDC PO SCH (08:51)
[2021-07-17 09:00] VITALS: BP 138/76
--- NOTE | 2021-07-17 10:55 | NUR ---
WOUND CARE CONSULT: PT ANGRY AND IRRITABLE. WILL ATTEMPT TO SEE PT AT LATER TIME FOR SKIN ASSESSMENT. PT IS INDEPENDENT WITH BED MOBILITY.
[2021-07-17 11:17] LABS: BASOPHILS # (AUTO) 0.1 K/uL (0.0-0.2); BASOPHILS % (AUTO) 0.9 % (0.0-2.0); EOSINOPHILS % (AUTO) 6.8 % (0.0-6.0); HEMATOCRIT 22 % (39-51); HEMOGLOBIN 7.4 g/dL (13.5-17.5); LYMPHOCYTES # (AUTO) 1.7 K/uL (0.8-4.8); LYMPHOCYTES % (AUTO) 29.8 % (20.0-44.0); MEAN CORPUSCULAR HGB CONC 34 g/dl (31.0-36.0); MEAN CORPUSCULAR VOLUME 94 fL (80-96); MONOCYTES # (AUTO) 0.6 K/uL (0.1-1.30); MONOCYTES % (AUTO) 10.4 % (2.0-12.0); NEUTROPHILS # (AUTO) 2.9 K/uL (1.8-8.9); NEUTROPHILS % (AUTO) 52.1 % (43.0-81.0); PLATELET COUNT (AUTO) 166 K/uL (150-450); WHITE BLOOD COUNT (AUTO) 5.6 K/uL (4.3-11.0)
[2021-07-17 12:41] LABS: CALCIUM, SERUM 8.3 mg/dL (8.5-10.1); CREATININE 6.5 mg/dL (0.6-1.3); MAGNESIUM 2.3 mg/dL (1.8-2.4); PHOSPHORUS 5.4 mg/dL (2.5-4.9); POTASSIUM 5.7 mmol/L (3.5-5.1)
--- NOTE | 2021-07-17 15:30 | NUR ---
PT TRANSFERRED TO SNF DISCHARGE INSTRUCTIONS GIVEN ORDERED. ALL QUESTIONS AND CONCERNS ADDRESSED. PATIENT VERBALIZED UNDERSTANDING. IV REMOVED WITH CATHETER INTACT, PRESSURE DRESSING APPLIED. MEDICATION RECONCILIATION FORM COMPLETED AND COPY GIVEN TO PATIENT. REPORT GIVEN TO ARIAN AT [facility]. PATIENT TRANSPORTED BY AMBULANCE WITH ALL PERSONAL BELONGINGS. NO DISTRESS NOTED AT TIME OF DEPARTURE.
== END 2021-07-17 15:25 | DRG 698 ==
LOC: ER 21:31 → MED 07-15 01:03
PROVIDERS: ADMIT Nurse Practitioner Acute Care; ATTEND Nurse Practitioner Acute Care
PROC: 30233N1 Transfusion of Nonautologous Red Blood Cells into Peripheral Vein, Percutaneous Approach (ICD-10-PCS; principal; 2021-07-15)
PROC: 5A1D70Z Performance of Urinary Filtration, Intermittent, Less than 6 Hours Per Day (ICD-10-PCS; 2021-07-15)
DX: T82.41XA Breakdown (mechanical) of vascular dialysis catheter, initial encounter (principal); N18.6 End stage renal disease; G93.40 Encephalopathy, unspecified; I12.0 Hypertensive chronic kidney disease with stage 5 chronic kidney disease or end stage renal disease; E44.0 Moderate protein-calorie malnutrition; G40.909 Epilepsy, unspecified, not intractable, without status epilepticus; Z99.2 Dependence on renal dialysis; Z20.822 Contact with and (suspected) exposure to COVID-19; E88.09 Other disorders of plasma-protein metabolism, not elsewhere classified; J44.9 Chronic obstructive pulmonary disease, unspecified; F25.9 Schizoaffective disorder, unspecified; F31.9 Bipolar disorder, unspecified; Z88.6 Allergy status to analgesic agent; Z88.8 Allergy status to other drugs, medicaments and biological substances; Z79.899 Other long term (current) drug therapy; Y92.129 Unspecified place in nursing home as the place of occurrence of the external cause; Y71.2 Prosthetic and other implants, materials and accessory cardiovascular devices associated with adverse incidents; R26.9 Unspecified abnormalities of gait and mobility; R53.1 Weakness; D63.8 Anemia in other chronic diseases classified elsewhere; M19.90 Unspecified osteoarthritis, unspecified site; Z86.711 Personal history of pulmonary embolism; F41.9 Anxiety disorder, unspecified
CPT/HCPCS: 36415; 80048-TC; 80076-TC; 83735-TC; 84100-TC; 85025-TC; 85027-TC; 85730-TC; 86850-TC; 87081-TC; 90935-TC; C9803; G0378; J2060; J7030; J7050; P9016

== ENCOUNTER 2021-08-23 09:19 | Inpatient (IN) | payer MEDICARE, OTHER ==
[~2021-08-23] VITALS: Ht 188 cm; Wt 80.3 kg
[~2021-08-23 09:19] MED LIST changes: -ACET-868 PO; -AMIN30LI2 PO; -ASCO500C17 PO; -DIVA125C2 PO; -MULT-439 PO; -POVI3780 TP
--- NOTE | 2021-08-23 09:45 | NUR ---
MOVE SHEET SUBMITTED.
--- NOTE | 2021-08-23 09:52 | NUR ---
IV LINE IS ESTABLISHED, BLOOD SPECIMEN COLLECTED AND SENT TO THE LAB. THE LINE IS SALINE LOCKED.
[2021-08-23] MEDS ORDERED: EPOE1000 SQ (09:55)
[2021-08-23] MEDS ORDERED: RISP0.2515 PO (09:55)
[2021-08-23] MEDS ORDERED: DIVA125C5 PO (09:55)
--- NOTE | 2021-08-23 09:55 | NUR ---
COVID SWAB SPECIMEN OBTAINED AND SENT TO LAB.
[2021-08-23 10:03] LABS: BASOPHILS % (AUTO) 0.6 % (0.0-2.0); EOSINOPHILS % (AUTO) 12.1 % (0.0-6.0); LYMPHOCYTES # (AUTO) 1.4 K/uL (0.8-4.8); LYMPHOCYTES % (AUTO) 21.8 % (20.0-44.0); MEAN CORPUSCULAR HGB CONC 35 g/dl (31.0-36.0); MEAN CORPUSCULAR VOLUME 95 fL (80-96); MONOCYTES # (AUTO) 0.7 K/uL (0.1-1.30); MONOCYTES % (AUTO) 10.6 % (2.0-12.0); NEUTROPHILS # (AUTO) 3.5 K/uL (1.8-8.9); NEUTROPHILS % (AUTO) 54.9 % (43.0-81.0); PLATELET COUNT (AUTO) 186 K/uL (150-450); RED BLOOD CELL COUNT(AUTO) 2.08 MIL/uL (4.5-6.0); WHITE BLOOD COUNT (AUTO) 6.4 K/uL (4.3-11.0)
[2021-08-23 10:10] LABS: CALCIUM, SERUM 8.2 mg/dL (8.5-10.1); CREATININE 5.5 mg/dL (0.6-1.3); POTASSIUM 4.6 mmol/L (3.5-5.1)
[2021-08-23 10:12] LABS: HEMOGLOBIN 6.8 g/dL (13.5-17.5)
[2021-08-23 10:13] LABS: HEMATOCRIT 20 % (39-51)
[2021-08-23] MEDS ORDERED: HALOPERIDOL LACTATE INJ 5 MG/ML VIAL ONE (10:19)
[2021-08-23] MEDS ORDERED: HALOPERIDOL LACTATE INJ 5 MG/ML VIAL IVP ONE (10:30)
--- NOTE | 2021-08-23 10:37 | NUR ---
[facility] CALLED SOFTWARE QA MANAGER PAGED.
--- NOTE | 2021-08-23 12:03 | NUR ---
GOT BED 328-2
[2021-08-23] MEDS ORDERED: MAG HYDROX/AL HYDROX/SIMETH 30 ML UDC PO PRN ×2 (12:30)
[2021-08-23] MEDS ORDERED: MAGNESIUM HYDROXIDE 30 ML UDC PO PRN ×2 (12:30)
[2021-08-23] MEDS ORDERED: ACETAMINOPHEN 325 MG TABLET PO PRN ×2 (12:30)
[2021-08-23] MEDS ORDERED: ONDANSETRON HCL/PF 4 MG/2 ML VIAL IVP PRN (12:30)
[2021-08-23] MEDS ORDERED: Z GUARD REMEDY 4 OZ OINT TP PRN (12:30)
[2021-08-23] MEDS ORDERED: BISACODYL SUPP (10 MG) 10 MG/SUPP.RECT SUPP.RECT RC PRN (12:30)
--- NOTE | 2021-08-23 12:30 | NUR ---
REPORT GIVEN TO NURSE RAMOS FOR STEVEN
[2021-08-23] MEDS: risperiDONE 0.25 MG TABLET PO SCH ×2 (13:00→17:00)
[2021-08-23] MEDS: PHENYTOIN EXTENDED RELEASE 100 MG CAPSULE PO SCH ×2 (13:00→17:00)
[2021-08-23] MEDS: SEVELAMER CARBONATE 800 MG POWD.PACK GT SCH ×2 (13:00→17:11)
[2021-08-23] MEDS: PROSOURCE / PROSTAT (PYXIS) 30 ML UDC PO SCH ×2 (13:00→17:00)
[2021-08-23 13:19] LABS: PHENYTOIN (DILANTIN) 4.4 ug/ml (10.0-20.0)
--- NOTE | 2021-08-23 13:46 | NUR ---
MRSA DONE, BELONGINGS LIST DONE. PATIENT NOT ABLE TO SIGN. CO-SIGNED WITH HEIDY MONREAL.
--- NOTE | 2021-08-23 14:05 | NUR ---
MS RN NOTE PATIENT RECEIVED FROM ER TRANSPORTED VIA GURNEY ACCOMPANIED BY NURSE. PATIENT TRANSFERRED TO BED AND COMFORT MEASURES PROVIDED. PATIENT IS ALERT AND ORIENTED TO SELF. WITH SOME POSSIBLE DEVELOPMENTAL DELAY BUT ABLE TO CARRY CONVERSATION BUT IS VERY DISMISSIVE. SHOUTS AND REFUSE TO COOPERATE WHEN ASKED. HE JUST WANTS TO BE 'LEFT ALONE AND COVERED WITH BLANKETS". COMFORT MEASURES PROVIDED. REFUSED BODY ASSESSMENT WELL. WITH IV ACCESS ON THE RIGHT WRIST, PATENT AND INTACT. SAFETY MEASURES ENFORCED WITH BE ON LOWEST LOCKED POSITION AND CALL LIGHT WITHIN REACH.
--- NOTE | 2021-08-23 15:10 | NUR ---
MS RN NOTE MD NOTIFIED OF ADMISSION. PATIENT ON CONSERVATORSHIP BUT PROMARY CONSERVATOR ON VACATION. PER OFFICER IN CHARGE, SCOTT, PATIENT CONSERVATORSHIP DOES NOT COVER MEDICAL DECISION. PATIENT IS ORIENTED TO SELF AND IS REFUSING ALL CARE LIKE BLOOD TRANSFUSION, CATHETER PLACEMENT, MIDLINE INSERTION CONSENTS AT THIS TIME. PATIENT KEEPS ON SHOUTING AND WOULD OCCASIONALLY SPIT RANDOMLY. MD NOTIFIED WITH ORDER TO REFER PATIENT TO PSYCH.
--- NOTE | 2021-08-23 16:11 | NUR ---
MS RN NOTE CALLED SECURITY, PATIENT WAS TRYING TO GET OUT OF BED AND ACTED LIKE HE WANTED TO PUNCH THIS NURSE. AWAITING PSYCH CONSULT. PATIENT WITH OUTBURSTS. NOTIIED.
[2021-08-23] MEDS ORDERED: OLANZAPINE 10 MG VIAL IM STA (16:33)
[2021-08-23] MEDS: LEVETIRACETAM (250 MG) 250 MG TABLET PO SCH (17:00)
--- NOTE | 2021-08-23 19:25 | NUR ---
MS RN NOTE PATIENT IS ALERT AND ORIENTED TO SELF. WITH SOME POSSIBLE DEVELOPMENTAL DELAY BUT ABLE TO CARRY CONVERSATION BUT IS VERY DISMISSIVE. SHOUTS AND REFUSE TO COOPERATE WHEN ASKED. HE JUST WANTS TO BE 'LEFT ALONE AND COVERED WITH BLANKETS". COMFORT MEASURES PROVIDED. REFUSED BODY ASSESSMENT WELL. WITH IV ACCESS ON THE RIGHT WRIST, PATENT AND INTACT. SAFETY MEASURES ENFORCED WITH BE ON LOWEST LOCKED POSITION AND CALL LIGHT WITHIN REACH. AWAITING PSYCH CONSULT. ENDORSED TO NEXT SHIFT FOR CONTINUITY OF CARE. STILL REFUSED MEDICAL INTERVENTIONS INCLUDING BT, SURGERY AND MEDICATIONS. FOR 1:1 SITTER
--- NOTE | 2021-08-23 19:58 | NUR ---
MS RN OPENING NOTE RECEIVED PATIENT BED.AAOX2 WITH CONFUSION.ON RM AIR.NO SIGN SOB/DISTRESS NOTED. EPISODE OF SHOUTING AND SCREAMING TO STAFF.SAYING WANT TO GO BACK HOME.IV ACCESS ON THE RIGHT WRIST, PATENT AND INTACT. SAFETY MEASURES ENFORCED WITH BE ON LOWEST LOCKED POSITION AND CALL LIGHT WITHIN REACH.WILL CONTINUE TO MONITOR.
--- NOTE | 2021-08-23 20:45 | NUR ---
RN NOTES DR. SWEET CALLED AND GAVE A TELEPHONE ORDER, PT. WILL HAVE A PERMACATH PLACEMENT TOMORROW, ORDER NOTED AND CARRIED OUT
[2021-08-23] MEDS: DIVALPROEX SODIUM 125 MG CAP.SPRINK PO SCH (22:25)
[2021-08-23] MEDS: BENZTROPINE MESYLATE (1 MG) 1 MG TABLET PO SCH (22:27)
--- NOTE | 2021-08-24 06:45 | NUR ---
MS RN CLOSING NOTE PATIENT IN BED SLEEPING AOX2 WITH CONFUSION.ON RM AIR ANDREA WELL.NO SIGN SOB/DISTRESS NOTED.BREATHING EVEN AND UNLABORED.IV ACCESS ON THE RIGHT WRIST,PATENT AND INTACT.PT HAS SITTER ON THE SIDE AT ALL TIMES.ALL DUE MEDS GIVEN ORDERED.SAFETY MEASURES ENFORCED WITH BE ON LOWEST LOCKED POSITION AND CALL LIGHT WITHIN REACH.WILL ENDORSED TO NEXT SHIFT.
[2021-08-24 08:36] LABS: BASOPHILS # (AUTO) 0.1 K/uL (0.0-0.2); EOSINOPHILS % (AUTO) 15.9 % (0.0-6.0); LYMPHOCYTES # (AUTO) 1.5 K/uL (0.8-4.8); LYMPHOCYTES % (AUTO) 25.6 % (20.0-44.0); MEAN CORPUSCULAR HGB CONC 35 g/dl (31.0-36.0); MEAN CORPUSCULAR VOLUME 94 fL (80-96); MONOCYTES # (AUTO) 0.5 K/uL (0.1-1.30); MONOCYTES % (AUTO) 8.6 % (2.0-12.0); NEUTROPHILS # (AUTO) 2.8 K/uL (1.8-8.9); NEUTROPHILS % (AUTO) 48.9 % (43.0-81.0); PLATELET COUNT (AUTO) 178 K/uL (150-450); RED BLOOD CELL COUNT(AUTO) 2.12 MIL/uL (4.5-6.0); WHITE BLOOD COUNT (AUTO) 5.8 K/uL (4.3-11.0)
[2021-08-24 08:45] VITALS: BP 143/84
[2021-08-24 08:46] LABS: CALCIUM, SERUM 8.4 mg/dL (8.5-10.1); CREATININE 6.5 mg/dL (0.6-1.3); MAGNESIUM 2.2 mg/dL (1.8-2.4); PHOSPHORUS 6.1 mg/dL (2.5-4.9); POTASSIUM 5.5 mmol/L (3.5-5.1)
[2021-08-24 08:57] LABS: HEMOGLOBIN 6.9 g/dL (13.5-17.5)
[2021-08-24 08:58] LABS: HEMATOCRIT 20 % (39-51)
[2021-08-24 09:00] VITALS: BP 144/81
[2021-08-24] MEDS: PROSOURCE / PROSTAT (PYXIS) 30 ML UDC PO SCH ×3 (09:00→17:00)
[2021-08-24] MEDS: LEVETIRACETAM (250 MG) 250 MG TABLET PO SCH ×2 (09:27→17:35)
[2021-08-24] MEDS: risperiDONE 0.25 MG TABLET PO SCH ×3 (09:27→17:35)
[2021-08-24] MEDS: DIVALPROEX SODIUM 125 MG CAP.SPRINK PO SCH ×2 (09:27→21:36)
[2021-08-24] MEDS: PHENYTOIN EXTENDED RELEASE 100 MG CAPSULE PO SCH ×3 (09:27→17:35)
[2021-08-24] MEDS: VIT B CMPLX 3/FA/VIT C/BIOTIN 1 TAB TABLET PO SCH (09:27)
[2021-08-24 09:30] VITALS: BP 140/82
[2021-08-24] MEDS: SEVELAMER CARBONATE 800 MG POWD.PACK GT SCH ×3 (09:34→17:35)
[2021-08-24] MEDS ORDERED: BUPIVACAINE MPF W/EPI 0.25% 30 ML VIAL ONE (10:22)
[2021-08-24] MEDS ORDERED: LIDOCAINE 1% INJ 50 ML MDV IJ ONE ×2 (10:23→13:47)
[2021-08-24 10:30] VITALS: BP 150/81
[2021-08-24 11:20] VITALS: BP 147/82
[2021-08-24 12:26] LABS: BASOPHILS % (AUTO) 0.8 % (0.0-2.0); EOSINOPHILS % (AUTO) 13.9 % (0.0-6.0); HEMATOCRIT 23 % (39-51); HEMOGLOBIN 8.1 g/dL (13.5-17.5); LYMPHOCYTES # (AUTO) 1.7 K/uL (0.8-4.8); LYMPHOCYTES % (AUTO) 28.2 % (20.0-44.0); MEAN CORPUSCULAR HGB CONC 35 g/dl (31.0-36.0); MEAN CORPUSCULAR VOLUME 94 fL (80-96); MONOCYTES # (AUTO) 0.6 K/uL (0.1-1.30); MONOCYTES % (AUTO) 9.8 % (2.0-12.0); NEUTROPHILS # (AUTO) 2.8 K/uL (1.8-8.9); NEUTROPHILS % (AUTO) 47.3 % (43.0-81.0); PLATELET COUNT (AUTO) 173 K/uL (150-450); RED BLOOD CELL COUNT(AUTO) 2.49 MIL/uL (4.5-6.0); WHITE BLOOD COUNT (AUTO) 5.9 K/uL (4.3-11.0)
[2021-08-24] MEDS: EPOETIN ALFA-EPBX 10,000 UNIT/ML VIAL SQ SCH ×2 (12:30→16:16)
[2021-08-24] MEDS ORDERED: OLANZAPINE 10 MG VIAL IM ONE (13:00)
--- NOTE | 2021-08-24 13:40 | NUR ---
MS RN NOTE PATIENT PICKED UP BY OR FO SCHEDULED SURGERY.
[2021-08-24] MEDS ORDERED: IOHEXOL 240MG/ML 0 ML IV ONE (13:45)
[2021-08-24] MEDS ORDERED: HEPARIN SODIUM, PORCINE 1,000 UNIT/ML VIAL ONE (13:46)
[2021-08-24] MEDS ORDERED: KETAMINE HCL (500MG/10ML) 50 MG/ML VIAL ONE (14:04)
[2021-08-24] MEDS ORDERED: MIDAZOLAM HCL 2 MG/2ML VIAL ONE (14:04)
--- NOTE | 2021-08-24 16:16 | NUR ---
MS RN NOTE PATEINT BACK FROM OR, WITH RIGHT HD ACCESS. WITH TEGADERM, INTACT. COMFORT MEASURES PROVIDED. PATIENT WITH OUTBURSTS AND SCRREAMS PROFANITIES. PROVIDED WITH CALM AND QUIET ENVIRONMENT.
--- NOTE | 2021-08-24 19:00 | NUR ---
MS RN NOTE S/P HD CATH PLACEMENT ON THE RIGHT UPPER CHEST. NO SIGNS OF BLEEDING. DR. GERBER NOTIFIED AND HD NURSE NOTIFIED. PER MD, PATIENT WILL HAVE HD TOMORROW. COMFORT MEASURES PROVIDED. IN STABLE CONDITION. ENDORSED ACCORDINGLY.
--- NOTE | 2021-08-24 20:18 | NUR ---
MS RN OPENING NOTE: RECEIVED PATIENT AWAKE IN BED, BED IN LOW POSITION CALL LIGHTS WITHIN REACH, NO COMPLAIN OF PAIN AND DISCOMFORT AT THIS TIME, ON ROOM AIR SATURATING WELL, PATIENT HAS RU CHEST HD CATH DONE TODAY,WITH IV LINE AT RIGHT WRIST #20 SL, KNOWN COMBATIVE, PATIENT KEPT CLEAN AND DRY ALL NEEDS MET WILL CONTINUE TO MONITOR.
[2021-08-24] MEDS: BENZTROPINE MESYLATE (1 MG) 1 MG TABLET PO SCH (21:36)
[2021-08-24 22:30] VITALS: BP 156/88
[2021-08-24] MEDS: ANCEF 1 GM/50 ML D5W IV SCH ×2 (22:47)
[2021-08-25] MEDS: ANCEF 1 GM/50 ML D5W IV SCH ×2 (06:03)
[2021-08-25 06:46] LABS: BASOPHILS # (AUTO) 0.1 K/uL (0.0-0.2); BASOPHILS % (AUTO) 0.7 % (0.0-2.0); EOSINOPHILS % (AUTO) 12.7 % (0.0-6.0); HEMATOCRIT 22 % (39-51); HEMOGLOBIN 7.8 g/dL (13.5-17.5); LYMPHOCYTES # (AUTO) 1.6 K/uL (0.8-4.8); LYMPHOCYTES % (AUTO) 20.6 % (20.0-44.0); MEAN CORPUSCULAR HGB CONC 35 g/dl (31.0-36.0); MEAN CORPUSCULAR VOLUME 93 fL (80-96); MONOCYTES # (AUTO) 0.6 K/uL (0.1-1.30); MONOCYTES % (AUTO) 8.4 % (2.0-12.0); NEUTROPHILS # (AUTO) 4.3 K/uL (1.8-8.9); NEUTROPHILS % (AUTO) 57.6 % (43.0-81.0); PLATELET COUNT (AUTO) 179 K/uL (150-450); RED BLOOD CELL COUNT(AUTO) 2.38 MIL/uL (4.5-6.0); WHITE BLOOD COUNT (AUTO) 7.5 K/uL (4.3-11.0)
--- NOTE | 2021-08-25 07:00 | NUR ---
MS RN OPENING NOTES PATIENT LAYING IN BED, A/O X 1, EASILY AGITATED, ABLE TO MAKE NEEDS KNOWN. R WRIST 20 G SL CLEAN, INTACT, AND FLUSHING WELL. R UPPER CHEST PERMACATH IN PLACE. TOLERATING WELL ON ROOM AIR WITH NO S/S RESPIRATORY DISTRESS. NO COMPLAINTS OF PAIN OR DISCOMFORT AT THIS TIME. SAFETY MEASURES IN PLACE: BED IN LOWEST LOCKED POSITION, SIDE RAILS UP X 2, CALL LIGHT WITHIN REACH. WILL CONTINUE TO MONITOR.
[2021-08-25 07:07] LABS: CALCIUM, SERUM 8.1 mg/dL (8.5-10.1); CREATININE 7.2 mg/dL (0.6-1.3)
--- NOTE | 2021-08-25 07:10 | NUR ---
MS RAH COLLIER MD MADE AWARE OF CRITICAL LAB WBC 38.7. NO NEW ORDERS AT THIS TIME. Addendum: 08/25/21 at 0955 by CHARISSE DELACRUZ RN DISREGARD NOTE
[2021-08-25 07:13] LABS: POTASSIUM 6.2 mmol/L (3.5-5.1)
--- NOTE | 2021-08-25 07:15 | NUR ---
MS RN NOTE MD MADE AWARE OF PATIENT CRITICAL LABS BUN 80 AND POTASSIUM 6.2. PATIENT TO RECEIVE HEMODIALYSIS TODAY. NO NEW MD ORDERS AT THIS TIME.
--- NOTE | 2021-08-25 07:34 | NUR ---
RN CLOSING NOTES: PATIENT SLEEP IN BED COMFORTABLY, WITH 1:1 SITTER AMBULATORY TO REST ROOM, EASILY AGITATIVE, COMBATIVE, ON ROOM AIR SATURATING WELL, WITH RU CHEST PERMCATH HD SCHEDULE TODAY, PATIENT KEPT CLEAN AND DRY ALL NEEDS MET ENDORSE TO INCOMING SHIFT
[2021-08-25] MEDS ORDERED: OLANZAPINE 10 MG VIAL IM ONE (08:30)
[2021-08-25] MEDS ORDERED: DIVA250T PO (08:42)
[2021-08-25] MEDS: SEVELAMER CARBONATE 800 MG POWD.PACK GT SCH ×3 (08:42→17:49)
[2021-08-25] MEDS: DIVALPROEX SODIUM 125 MG CAP.SPRINK PO SCH ×2 (08:43→21:48)
[2021-08-25] MEDS: risperiDONE 0.25 MG TABLET PO SCH ×3 (08:43→17:50)
[2021-08-25] MEDS: LEVETIRACETAM (250 MG) 250 MG TABLET PO SCH ×2 (08:43→17:49)
[2021-08-25] MEDS: VIT B CMPLX 3/FA/VIT C/BIOTIN 1 TAB TABLET PO SCH (08:43)
[2021-08-25] MEDS: PROSOURCE / PROSTAT (PYXIS) 30 ML UDC PO SCH ×3 (08:44→17:00)
[2021-08-25] MEDS: PHENYTOIN EXTENDED RELEASE 100 MG CAPSULE PO SCH ×3 (08:44→17:49)
[2021-08-25] MEDS: LORAZEPAM 1 MG TABLET PO PRN (10:46)
--- NOTE | 2021-08-25 15:15 | NUR ---
MS DIRECTOR TRIAL NOTE PATIENT SLEEPING IN BED, V/S STABLE, TRANSFERRED TO MEET UNIT 102 VIA HOSPITAL BED. PATIENT WITH NO BELONGINGS NOTED ON BELONGINGS LIST. REPORT GIVEN TO RAH COLINDRES, ALL CARE TRANSFERRED. 1:1 SITTER PRESENT AT BEDSIDE TRANSFERRED TO UNIT 102 TO CONTINUE 1:1 MONITORING.
--- NOTE | 2021-08-25 15:16 | NUR ---
RECEIVED TRANSFER FROM RAH MCQUEEN. PATIENT SLEEPING IN BED BREATHING EVENLY AND UNLABORED ON ROOM AIR. RIGHT UPPER CHEST PERMACATH NOTED. IV ACCESS ON RIGHT WRIST 20 GAUGE SALINE LOCK NOTED. PATIENT REFUSING INITIAL ASSESSMENT. WILL CONTINUE PLAN OF CARE AND ANTICIPATE NEEDS Addendum: 08/25/21 at 1842 by JENS GUERRERO RN OPENING NOTE
--- NOTE | 2021-08-25 18:36 | NUR ---
PATIENT SLEEPING IN BED BREATHING EVENLY AND UNLABORED ON ROOM AIR. RIGHT UPPER CHEST PERMACATH NOTED. IV ACCESS ON RIGHT WRIST 20 GAUGE SALINE LOCK NOTED. ALL DUE MEDS GIVEN. PATIENT KEPT CLEAN AND DRY THROUGHOUT SHIFT. BED IN LOWEST POSITION, CALL LIGHT WITHIN REACH, SIDERAILS UP. SITTER AT THE BEDSIDE. WILL ENDORSE TO NIGHTSHIFT RN FOR STEVEN. Addendum: 08/25/21 at 1843 by JENS GUERRERO RN CLOSING NOTE
--- NOTE | 2021-08-25 19:10 | NUR ---
RN NOTES RECEIVED REPORT FROM MORNING RN. PATIENT IN BED ASLEEP SITTER AT BEDSIDE. WITH R CHEST WALL PERMACATH INTACT. WITH IV ACCESS AT R WRIST # 20 PATENT FLUSHES WELL. PATIENT IS COVID +.. ALL SAFETY MEASURES IN PLACE. HOB ELEVATED. CALL LIGHT WITHIN REACH. FREQUENT VISUAL MONITORING. WILL CLOSELY MONITOR THE PATIENT
[2021-08-25 20:00] VITALS: BP 130/90
[2021-08-25] MEDS: BENZTROPINE MESYLATE (1 MG) 1 MG TABLET PO SCH (21:48)
--- NOTE | 2021-08-26 00:45 | NUR ---
RN NOTES PATIENT START TO AGITATE. WENT TO THE BATHROOM AND BACK TO BED. START TO CURSE. STAND UP AND TRIED TO OPEN THE DOOR PUNCH THE WINDOW. CODE JANG ACTIVATED. SECURITY CAME IN. PATIENT CALM DOWN AND BACK TO BED. PAGED DR BENSON WITH ORDER ZYPREXA 10 MG IM IF PATIENT START TO BE COMBATIVE.
--- NOTE | 2021-08-26 01:20 | NUR ---
RN NOTES PATIENT START TO AGITATE AGAIN SCREAMING, PUNCHING THE BED, CURSING, TRYING TO GET OUT OF HIS ROOM. ONE TIME DOSE ZYPREZA 10 MG IM GIVEN WITH 4 MALE TO HOLD THE PATIENT. WILL CLOSELY MONITOR THE PATIENT.
[2021-08-26] MEDS ORDERED: OLANZAPINE 10 MG VIAL IM ONE ×2 (01:30→10:00)
--- NOTE | 2021-08-26 02:50 | NUR ---
RN NOTES PATIENT START TO AGITATE AGAIN TRYING TO GET OUT OF HIS ROOM. SCREAMING, HITTING HIS BED. CALLED SECURITY TO CALM HIM DOWN. DR BENSON INFORMED WITH ORDER.
[2021-08-26 04:00] VITALS: BP 136/74
[2021-08-26] MEDS ORDERED: HALOPERIDOL LACTATE INJ 5 MG/ML VIAL IM ONE ×2 (04:00→13:30)
--- NOTE | 2021-08-26 04:10 | NUR ---
RN NOTES PATIENT SCREAMING, PUNCHING HIS BED TRYING TO GET OUT OF HIS ROOM. PRRN HALDOL 5 MG IM GIVEN 1 TIME DOSE. CLOSELY MONITORING DONE.
--- NOTE | 2021-08-26 07:53 | NUR ---
RN NOTE PT RECEIVED ASLEEP IN BED, NO SOB NOTED. R CHEST PERMCATH IN PLACE. SAFETY MEASURES FOLLOWED. WILL CONTINUE TO MONITOR.
[2021-08-26] MEDS: SEVELAMER CARBONATE 800 MG POWD.PACK GT SCH (09:38)
[2021-08-26] MEDS: risperiDONE 0.25 MG TABLET PO SCH ×2 (09:39→12:22)
[2021-08-26] MEDS: PHENYTOIN EXTENDED RELEASE 100 MG CAPSULE PO SCH ×3 (09:46→17:27)
[2021-08-26] MEDS: VIT B CMPLX 3/FA/VIT C/BIOTIN 1 TAB TABLET PO SCH (09:46)
[2021-08-26] MEDS: LEVETIRACETAM (250 MG) 250 MG TABLET PO SCH ×2 (09:46→17:27)
[2021-08-26] MEDS: DIVALPROEX SODIUM 125 MG CAP.SPRINK PO SCH (09:47)
[2021-08-26] MEDS: PROSOURCE / PROSTAT (PYXIS) 30 ML UDC PO SCH ×3 (09:49→17:00)
--- NOTE | 2021-08-26 11:06 | NUR ---
RN NOTE ZYPREXIA 10MG VIA IM GIVEN. WILL CONTINUE TO MONITOR. PT STILL NOTED AGITATED,YELLING AND CURSING.
[2021-08-26 12:00] VITALS: BP 136/74
[2021-08-26] MEDS: SEVELAMER CARBONATE 800 MG TABLET PO SCH ×2 (12:08→17:27)
--- NOTE | 2021-08-26 13:28 | NUR ---
NOELLE WISE CALLED SINCE PATIENT WALKING OUT ROOM NAKED,SCREAMING /YELLING ON STAFF,REFUSED TO OBSERVED ISOLATION PRECAUTION.
[2021-08-26] MEDS ORDERED: LORAZEPAM INJ 2 MG/ML VIAL IV ONE (13:30)
[2021-08-26] MEDS: EPOETIN ALFA-EPBX 10,000 UNIT/ML VIAL SQ SCH (13:38)
--- NOTE | 2021-08-26 13:39 | NUR ---
UNABLE TO PERFORM LOWER EXTREMITY VENOUS BILATERAL EXAM. PATIENT IS AGITATED AND UNCOOPERATIVE.
--- NOTE | 2021-08-26 13:51 | NUR ---
RN NOTE PT NOTED AGITATED, YELLING AND BEING VERBALLY ABUSIVE TO STAFF. PT WAS WALKING OUT HALLWAY NAKED AND YELLING. PMD MADE AWARE. WITH NEW ORDERS FOR FAMILIA SOFT HAND RESTRAINTS AND 1 DOSE IM 5MG.
[2021-08-26 15:21] LABS: CALCIUM, SERUM 8.2 mg/dL (8.5-10.1); CREATININE 6.4 mg/dL (0.6-1.3); POTASSIUM 4.8 mmol/L (3.5-5.1)
[2021-08-26] MEDS: HALOPERIDOL 5 MG TABLET PO SCH ×2 (15:53→17:27)
[2021-08-26] MEDS ORDERED: diphenhydrAMINE HCL 50 MG/ML VIAL IM PRN (16:00)
[2021-08-26] MEDS: BENZTROPINE MESYLATE (1 MG) 1 MG TABLET PO SCH (17:27)
--- NOTE | 2021-08-26 18:34 | NUR ---
RN NOTE PT LYING IN BED, NO SOB NOTED. R CHEST PERMCATH IN PLACE. PM MEDS TAKEN, CARE RENDERED. SAFETY MEASURES FOLLOWED. PT STILL NOTED AGITATED, VERBALLY ABUSIVE TO STAFF AND YELLING. V/S STABLE. WILL CONTINUE TO MONITOR. SOFT BILATERAL HAND RESTRAINTS IN PLACE WITH NO SKIN AND CIRCULATORY COMPLICATIONS NOTED AT THIS TIME. WILL ENDORSE TO NEXT RN.
--- NOTE | 2021-08-26 19:10 | NUR ---
RN NOTE REPORT RECEIVED FROM DE MONREAL, PATIENT IN BED, AO X 1, IN NO ACUTE DISTRESS AT THIS TIME, SITTER AT BEDSIDE. RESPIRATION UNLABORED, SATURATION AT 98% ON ROOM AIR, HR IS 78. IV LINE AT R WRIST 20G, PATENT AND FLUSHING WELL, NO S/S OF INFECTION OR INFILTRATION. PERMACATH AT R CHEST WALL INPLACE, NO SIGN OF INFECTION OR BLEEDING NOTED. SAFETY MEASURES IMPLEMENTED. PATIENT BED ALARM IS ON. HEAD OF BED ELEVATED. BED IS LOCKED, IN LOWEST POSITION AND SIDE RAILS UP. CALL LIGHT WITHIN REACH OF THE PATIENT. WILL CONTINUE TO MONITOR AND REASSESS FOR ANY CHANGES.
[2021-08-26 20:00] VITALS: BP 148/68
[2021-08-26] MEDS: DIVALPROEX SODIUM 500 MG TABLET.DR PO SCH (21:34)
[2021-08-26] MEDS: HALOPERIDOL LACTATE INJ 5 MG/ML VIAL IM PRN (21:34)
[2021-08-26] MEDS: diphenhydrAMINE HCL 50 MG/ML VIAL IM PRN (21:34)
[2021-08-27 04:00] VITALS: BP 153/87
[2021-08-27 06:07] LABS: BASOPHILS % (AUTO) 0.8 % (0.0-2.0); EOSINOPHILS % (AUTO) 13.3 % (0.0-6.0); HEMATOCRIT 23 % (39-51); LYMPHOCYTES # (AUTO) 1.6 K/uL (0.8-4.8); LYMPHOCYTES % (AUTO) 25.2 % (20.0-44.0); MEAN CORPUSCULAR HGB CONC 35 g/dl (31.0-36.0); MEAN CORPUSCULAR VOLUME 95 fL (80-96); MONOCYTES # (AUTO) 0.8 K/uL (0.1-1.30); MONOCYTES % (AUTO) 12.5 % (2.0-12.0); NEUTROPHILS % (AUTO) 48.2 % (43.0-81.0); PLATELET COUNT (AUTO) 147 K/uL (150-450); RED BLOOD CELL COUNT(AUTO) 2.41 MIL/uL (4.5-6.0); WHITE BLOOD COUNT (AUTO) 6.2 K/uL (4.3-11.0)
[2021-08-27 06:32] LABS: CALCIUM, SERUM 8.5 mg/dL (8.5-10.1); CREATININE 6.6 mg/dL (0.6-1.3); POTASSIUM 4.9 mmol/L (3.5-5.1)
[2021-08-27] MEDS: diphenhydrAMINE HCL 50 MG/ML VIAL IM PRN ×2 (06:34→10:47)
[2021-08-27] MEDS: HALOPERIDOL LACTATE INJ 5 MG/ML VIAL IM PRN ×2 (06:35→10:48)
[2021-08-27 08:00] VITALS: BP 153/52
--- NOTE | 2021-08-27 08:00 | NUR ---
ms RN NOTE PATIENT IN BED, AO X 1, IN NO ACUTE DISTRESS AT THIS TIME. RESPIRATION UNLABORED, SATURATION AT 98% ON ROOM AIR, HR IS 78. IV LINE AT R WRIST 22 WITH GOOD BLOOD RETURN blo PERMACATH AT R CHEST WALL IN PLACE, WITH SOME BLEEDING NOTED. SAFETY MEASURES IMPLEMENTED. PATIENT BED ALARM IS ON. HEAD OF BED ELEVATED. BED IS LOCKED, IN LOWEST POSITION AND SIDE RAILS UP. CALL LIGHT WITHIN REACH OF THE PATIENT. WILL CONTINUE TO MONITOR Addendum: 08/27/21 at 1025 by ASHLEY HUSTON RN correction new hl on rt fa [id number] inserted with good blood return
[2021-08-27] MEDS: VIT B CMPLX 3/FA/VIT C/BIOTIN 1 TAB TABLET PO SCH (08:10)
[2021-08-27] MEDS: BENZTROPINE MESYLATE (1 MG) 1 MG TABLET PO SCH ×3 (08:10→16:32)
[2021-08-27] MEDS: DIVALPROEX SODIUM 500 MG TABLET.DR PO SCH ×3 (08:11→21:00)
[2021-08-27] MEDS: HALOPERIDOL 5 MG TABLET PO SCH ×3 (08:11→16:32)
[2021-08-27] MEDS: LEVETIRACETAM (250 MG) 250 MG TABLET PO SCH ×2 (08:11→16:32)
[2021-08-27] MEDS: SEVELAMER CARBONATE 800 MG TABLET PO SCH ×3 (08:12→16:31)
[2021-08-27] MEDS: PROSOURCE / PROSTAT (PYXIS) 30 ML UDC PO SCH ×3 (08:12→16:32)
[2021-08-27] MEDS: PHENYTOIN EXTENDED RELEASE 100 MG CAPSULE PO SCH ×3 (08:12→16:31)
--- NOTE | 2021-08-27 10:54 | NUR ---
ms rn note very agitated. bp153/83 saturation 96^ Benadryl and Haldol im given as ordered ,will monitor
[2021-08-27] MEDS ORDERED: OLANZAPINE 10 MG VIAL IM ONE (12:40)
--- NOTE | 2021-08-27 13:12 | NUR ---
ms rn note very agitated dr anthony ordered Zyprexa 10 mg im ,order carried out
--- NOTE | 2021-08-27 13:30 | NUR ---
MS RN NOTE ZYPREXA IM GIVEN ORDERED, DR ALLEN NOTIFIED ABOUT AGITATION, STATED CONT TO MONITOR, NO NEW ORDER AT THIS TIME
--- NOTE | 2021-08-27 15:29 | NUR ---
ms rn note with accessional yelling and agitation noted ,all needs attended, keep clean dry
[2021-08-27 16:00] VITALS: BP 147/76
--- NOTE | 2021-08-27 18:23 | NUR ---
MANAGER HEMATOLOGY NOTE HAVING DINNER RESTRAINS REALIZED ABLE TO EAT SELF, MONITOR CLOSELY ,BED IN LOWEST AND LOCKED POSITION , CALL LIGHT WITHIN REACH , NO SOB NOTED ,RT FA HL INTACT AND FLUSHED WELL
--- NOTE | 2021-08-27 19:45 | NUR ---
MS RN OPENING NOTE RECEIVED PATIENT IN BED, AO X 1, AGITATED AND SHOUTING TO MIDLINE NURSE, ON ROOM AIR TOLERATING WELL. IV LINE AT R WRIST 22, INTACT AND PATENT, AND L MIDLINE IN PLACED, PERMACATH AT R CHEST WALL IN PLACE, WITH SOME BLEEDING NOTED. SAFETY MEASURES IMPLEMENTED. PATIENT BED ALARM IS ON. HEAD OF BED ELEVATED. BED IS LOCKED, IN LOWEST POSITION AND SIDE RAILS UP. WILL MAINTAIN ISOLATION PRECAUTION THROUGHPUT SHIFT. CALL LIGHT WITHIN REACH OF THE PATIENT. WILL CONTINUE TO MONITOR
[2021-08-27 20:00] VITALS: BP 151/84
--- NOTE | 2021-08-27 21:30 | NUR ---
RN NOTE PT REFUSED DEPAKOTE 500MG TAB R ORDERED MEDS. PATIENT SPIT OUT THE TABLET SAYING "LEAVE ME ALONE I'M NOT TAKING ANY MEDICINE, I WANNA SLEEP". BP CHECKED AT 151/85. WILL CONTINUE TO MONITOR.
[2021-08-28 04:00] VITALS: BP 101/74
--- NOTE | 2021-08-28 06:45 | NUR ---
MS RN CLOSING NOTE PATIENT IN BED SLEEPING BUT EASILY AROUSABLE TO TOUCH AND VOICE, AO X 1, ON ROOM AIR TOLERATING WELL. IV LINE AT R WRIST 22, INTACT AND PATENT, AND L MIDLINE IN PLACED, PERMACATH AT R CHEST WALL IN PLACE, WITH SOME BLEEDING NOTED. SAFETY MEASURES IMPLEMENTED. PATIENT BED ALARM IS ON. HEAD OF BED ELEVATED. BED IS LOCKED, IN LOWEST POSITION AND SIDE RAILS UP. MAINTAINED ISOLATION PRECAUTION, KEPT DRY AND CLEAN, WILL ENDORSE TO AM SHIFT NURSE FOR STEVEN.
--- NOTE | 2021-08-28 07:26 | NUR ---
MS RN CLOSING NOTE RECIEVED PATIENT FROM [facility] RN. PATIENT IN BED SLEEPING ON ROOM AIR TOLERATING WELL. IV LINE AT R WRIST 22, INTACT AND PATENT, AND L MIDLINE IN PLACED, PERMACATH AT R CHEST WALL IN PLACE, WITH SOME BLEEDING NOTED. SAFETY MEASURES IMPLEMENTED. PATIENT BED ALARM IS ON. HEAD OF BED ELEVATED. BED IS LOCKED, IN LOWEST POSITION AND SIDE RAILS UP. MAINTAINED ISOLATION PRECAUTION, KEPT DRY AND CLEAN, WILL ENDORSE TO AM SHIFT NURSE FOR STEVEN. Addendum: 08/28/21 at 0729 by JENS GUERRERO RN PREMATURELY SAVED NOTE. AMMENDED NOTE IS FOLLOWS: RN OPENING NOTE RECIEVED PATIENT FROM [facility] RN. PATIENT IN BED SLEEPING ON ROOM AIR TOLERATING WELL. IV LINE AT R WRIST 22, INTACT, AND L MIDLINE IN PLACED, PERMACATH AT R CHEST WALL IN PLACE, WITH SOME BLEEDING NOTED. SAFETY MEASURES IMPLEMENTED. PATIENT BED ALARM IS ON. HEAD OF BED ELEVATED. BED IS LOCKED, IN LOWEST POSITION AND SIDE RAILS UP. MAINTAINED ISOLATION PRECAUTION, WILL CONTINUE PLAN OF CARE AND ANTICIPATE NEEDS.
[2021-08-28] MEDS: PROSOURCE / PROSTAT (PYXIS) 30 ML UDC PO SCH ×2 (08:24→12:54)
[2021-08-28] MEDS: LEVETIRACETAM (250 MG) 250 MG TABLET PO SCH (08:24)
[2021-08-28] MEDS: VIT B CMPLX 3/FA/VIT C/BIOTIN 1 TAB TABLET PO SCH (08:25)
[2021-08-28] MEDS: BENZTROPINE MESYLATE (1 MG) 1 MG TABLET PO SCH ×2 (08:25→12:54)
[2021-08-28] MEDS: DIVALPROEX SODIUM 500 MG TABLET.DR PO SCH (08:25)
[2021-08-28] MEDS: PHENYTOIN EXTENDED RELEASE 100 MG CAPSULE PO SCH ×2 (08:25→12:54)
[2021-08-28] MEDS: SEVELAMER CARBONATE 800 MG TABLET PO SCH ×2 (08:26→12:54)
[2021-08-28] MEDS: LORAZEPAM 1 MG TABLET PO PRN (08:26)
[2021-08-28] MEDS: HALOPERIDOL 5 MG TABLET PO SCH ×2 (08:26→12:54)
[2021-08-28] MEDS: HALOPERIDOL LACTATE INJ 5 MG/ML VIAL IM PRN (09:23)
[2021-08-28] MEDS: diphenhydrAMINE HCL 50 MG/ML VIAL IM PRN (09:23)
[2021-08-28 12:00] VITALS: BP 137/62
--- NOTE | 2021-08-28 14:26 | NUR ---
REPORT GIVEN TO VIDHYA IN [facility].
--- NOTE | 2021-08-28 14:39 | NUR ---
RN CLOSING NOTE PATIENT HAS BEEN DISCHARGED BACK TO [facility]. IV ACCESS HAS BEEN REMOVED, PATIENTS BELONGINGS LIST AND DISCHARGE INSTRUCTIONS HAVE BEEN SIGNED BY AMBULANCE CREW. PATIENT WAS WHEELED OUT OF THE UNIT AND INTO THE PRIVATE AMBULANCE IN STABLE CONDITION.
== END 2021-08-28 14:38 | DRG 673 ==
LOC: ER 09:22 → MED 12:53 → MEDSG1 08-25 14:59
PROVIDERS: ADMIT Nurse Practitioner Acute Care; ATTEND Nurse Practitioner Acute Care
PROC: 30233N1 Transfusion of Nonautologous Red Blood Cells into Peripheral Vein, Percutaneous Approach (ICD-10-PCS; principal; 2021-08-24)
PROC: 0JHD3XZ Insertion of Tunneled Vascular Access Device into Right Upper Arm Subcutaneous Tissue and Fascia, Percutaneous Approach (ICD-10-PCS; 2021-08-24)
PROC: 05HM33Z Insertion of Infusion Device into Right Internal Jugular Vein, Percutaneous Approach (ICD-10-PCS; 2021-08-24)
PROC: B513YZA Fluoroscopy of Right Jugular Veins using Other Contrast, Guidance (ICD-10-PCS; 2021-08-24)
PROC: 5A1D70Z Performance of Urinary Filtration, Intermittent, Less than 6 Hours Per Day (ICD-10-PCS; 2021-08-25)
PROC: 05HF33Z Insertion of Infusion Device into Left Cephalic Vein, Percutaneous Approach (ICD-10-PCS; 2021-08-27)
DX: T82.41XA Breakdown (mechanical) of vascular dialysis catheter, initial encounter (principal); N18.6 End stage renal disease; U07.1 COVID-19; G93.40 Encephalopathy, unspecified; D64.9 Anemia, unspecified; E11.22 Type 2 diabetes mellitus with diabetic chronic kidney disease; G40.909 Epilepsy, unspecified, not intractable, without status epilepticus; Z99.2 Dependence on renal dialysis; M19.90 Unspecified osteoarthritis, unspecified site; J44.9 Chronic obstructive pulmonary disease, unspecified; Z87.891 Personal history of nicotine dependence; F25.9 Schizoaffective disorder, unspecified; Z86.718 Personal history of other venous thrombosis and embolism; Z86.711 Personal history of pulmonary embolism; R26.9 Unspecified abnormalities of gait and mobility; Z88.6 Allergy status to analgesic agent; Z88.8 Allergy status to other drugs, medicaments and biological substances; Z79.899 Other long term (current) drug therapy; E83.39 Other disorders of phosphorus metabolism; F41.9 Anxiety disorder, unspecified; F39 Unspecified mood [affective] disorder; D63.8 Anemia in other chronic diseases classified elsewhere; E87.5 Hyperkalemia; Y84.1 Kidney dialysis as the cause of abnormal reaction of the patient, or of later complication, without mention of misadventure at the time of the procedure; Y92.129 Unspecified place in nursing home as the place of occurrence of the external cause; R53.1 Weakness; R45.1 Restlessness and agitation
CPT/HCPCS: 36415; 71045-TC; 80048-TC; 80164-TC; 80177; 80185-TC; 83735-TC; 83880; 84100-TC; 85025-TC; 85378-TC; 85730-TC; 86140-TC; 86850-TC; 87081-TC; 90935-TC; C1750; C1757; C1769; C1894; C9803; G0378; J0690; J0885; J1200; J1630; J1644; J2250; J2704; J3490; J7030; J7040; J7050; J7060; P9016; Q9966

== ENCOUNTER 2021-09-23 15:53 | Inpatient (IN) | payer MEDICARE, OTHER ==
[~2021-09-23] VITALS: Ht 188 cm; Wt 95.3 kg
[~2021-09-23 15:53] MED LIST changes: +DIPH50VI14 IM; +DIVA125C5 PO; -DIVA250T PO; +EPOE1000 SQ; -FERR325T23 PO; +FERR325T28 PO; +HALO5SYR IM; -MINE133E RC; -RISP1TAB7 PO
--- NOTE | 2021-09-23 15:58 | NUR ---
TO ER BED 7, LORETTA FROM [facility] FOR LOW HGB OF 6.4, DIALYSIS FINISHED TODAY, AGITATED, CONNECTED TO MONITOR, AWAITING MD FRANCES
--- NOTE | 2021-09-23 16:40 | NUR ---
SALINE LOCK ESTABLISHED, BLOOD DRAWN AND SENT TO LAB
--- NOTE | 2021-09-23 16:56 | NUR ---
WOOD MODEL BUILDER AT BEDSIDE FOR XRAY
--- NOTE | 2021-09-23 17:06 | NUR ---
COVID SWAB DONE AND SENT TO LAB
[2021-09-23 17:09] LABS: BASOPHILS # (AUTO) 0.1 K/uL (0.0-0.2); BASOPHILS % (AUTO) 1.9 % (0.0-2.0); EOSINOPHILS % (AUTO) 12.8 % (0.0-6.0); LYMPHOCYTES # (AUTO) 0.9 K/uL (0.8-4.8); LYMPHOCYTES % (AUTO) 20.7 % (20.0-44.0); MEAN CORPUSCULAR HGB CONC 34 g/dl (31.0-36.0); MEAN CORPUSCULAR VOLUME 97 fL (80-96); MONOCYTES # (AUTO) 0.6 K/uL (0.1-1.30); MONOCYTES % (AUTO) 13.5 % (2.0-12.0); NEUTROPHILS # (AUTO) 2.2 K/uL (1.8-8.9); NEUTROPHILS % (AUTO) 51.1 % (43.0-81.0); PLATELET COUNT (AUTO) 165 K/uL (150-450); WHITE BLOOD COUNT (AUTO) 4.4 K/uL (4.3-11.0)
[2021-09-23 17:13] LABS: RED BLOOD CELL COUNT(AUTO) 1.91 MIL/uL (4.5-6.0)
[2021-09-23 17:14] LABS: HEMATOCRIT 19 % (39-51); HEMOGLOBIN 6.4 g/dL (13.5-17.5)
[2021-09-23 17:30] LABS: ALANINE AMINOTRANSFERASE 11 U/L (12-78); ALBUMIN 2.4 g/dL (3.4-5.0); ALKALINE PHOSPHATASE 110 U/L (46-116); ASPARTATE AMINOTRANSFERASE 19 U/L (15-37); BILIRUBIN,DIRECT 0.1 mg/dL (0.0-0.2); BILIRUBIN,TOTAL 0.1 mg/dL (0.2-1.0); CALCIUM, SERUM 8.1 mg/dL (8.5-10.1); CARBON DIOXIDE 33 mmol/L (21-32); CHLORIDE 101 mmol/L (98-107); CREATININE 3.4 mg/dL (0.6-1.3); GLUCOSE 100 mg/dL (74-106); SODIUM SERUM 138 mmol/L (136-145); TOTAL PROTEIN, SERUM 5.7 g/dL (6.4-8.2); UREA NITROGEN, BLOOD 31 mg/dL (7-18)
[2021-09-23 18:45] LABS: BAND % (MANUAL) 3 % (0.0-5.0); BASOPHILS % (MANUAL) 0 % (0.0-2.0); EOSINOPHILS % (MANUAL) 10 % (0-4); LYMPHOCYTES % (MANUAL) 21 % (16-48); MONOCYTES % (MANUAL) 9 % (0-11.0); NEUTROPHILS % (MANUAL) 57 (42-76)
[2021-09-23] MEDS ORDERED: EPOETIN ALFA-EPBX 10,000 UNIT/ML VIAL SQ SCH (19:00)
[2021-09-23] MEDS ORDERED: LORAZEPAM INJ 2 MG/ML VIAL IM PRN (19:00)
[2021-09-23] MEDS ORDERED: ACETAMINOPHEN 325 MG TABLET PO PRN (19:00)
[2021-09-23] MEDS ORDERED: ZOLPIDEM TARTRATE 5 MG TABLET PO PRN (19:00)
[2021-09-23] MEDS ORDERED: MAGNESIUM HYDROXIDE 30 ML UDC PO PRN (19:00)
[2021-09-23] MEDS ORDERED: MAG HYDROX/AL HYDROX/SIMETH 30 ML UDC PO PRN ×2 (19:00)
[2021-09-23] MEDS ORDERED: Z GUARD REMEDY 4 OZ OINT TP PRN (19:00)
[2021-09-23] MEDS ORDERED: diphenhydrAMINE HCL 50 MG/ML VIAL IM PRN (19:00)
[2021-09-23] MEDS ORDERED: BISACODYL SUPP (10 MG) 10 MG/SUPP.RECT SUPP.RECT RC PRN (19:00)
[2021-09-23] MEDS ORDERED: ONDANSETRON HCL/PF 4 MG/2 ML VIAL IVP PRN (19:00)
[2021-09-23 19:33] LABS: PHENYTOIN (DILANTIN) 7.9 ug/ml (10.0-20.0)
--- NOTE | 2021-09-23 19:35 | NUR ---
RECEIVED PATIENT SHOUTING FROM ROOM AND WANTING TO GO HOME. EXPLAINED TO PATIENT THAT HE NEEDS TO BE ADMITTED BECAUSE HIS H&H ARE LOW. VITALS CHECKED AND BEING MONITORED
[2021-09-23 19:48] LABS: IRON, SERUM 112 ug/dl (50-175); TOTAL IRON BINDING CAPACITY 139 ug/dl (250-450)
[2021-09-23] MEDS: DIVALPROEX SODIUM 125 MG CAP.SPRINK PO SCH (21:00)
--- NOTE | 2021-09-23 21:55 | NUR ---
ROOM 314-1
--- NOTE | 2021-09-23 22:00 | NUR ---
REPORT GIVEN TO RAH ALMAZAN.
--- NOTE | 2021-09-23 22:15 | NUR ---
RN NOTES PT RECIEVED IN BED FROM ER WITH CLINT [id number] TELE.ON RM AIR ANDREA WELL.NO SIGN SOB/DISTRESS NOTED.NO COMPLAINED OF PAIN/DISCOMFORT.PT NOTED EPISODE OF YELLING,SCREAMING.V/SWAS TAKEN IN RECORDED.IV ACCESS ON LFA 20G INTACT AND PATENT.SAFETY MEASURED IN PLACE BED LOCKED ANDLOW POSITION.CALL LIGHT WITHIN REACH.WILL CONTINUE TO MONITOR.
--- NOTE | 2021-09-23 22:15 | NUR ---
TRANSFER PATIENT TO 314-1
--- NOTE | 2021-09-23 22:20 | NUR ---
RECEIVED CALL FROM LAB THAT 1 UNIT BLOOD AVAILABLE FOR PATIENT.
[2021-09-23 23:16] VITALS: BP_SYST 159; BP_SYST 164; BP_DIAS 78; BP_DIAS 96
[2021-09-23 23:31] VITALS: BP 156/94
--- NOTE | 2021-09-23 23:35 | NUR ---
RN NOTES PT WAS AGITATION.ANXIOUS.ATIVAN 1MG IM WAS GIVEN.NO ASIGN A/R NOTED.
[2021-09-23 23:46] VITALS: BP 163/91
[2021-09-24] VITALS (10 sets, daily range): BP systolic 140–166; BP diastolic 75–100
[2021-09-24] MEDS: BENZTROPINE MESYLATE (1 MG) 1 MG TABLET PO SCH ×2 (00:58→21:56)
--- NOTE | 2021-09-24 02:44 | NUR ---
RN NOTES ONE UNIT PRBC FINISHED TRANSFUSION WITHOUT ANY REACTIONS.V/S STABLE.AFEBRILE.NO SOB. NO S/S OF DISTRESS NOTED. PT TOLERATED ACTIVITY WELL. WILL CONTINUE TO MONITOR.
--- NOTE | 2021-09-24 07:10 | NUR ---
CRANE HOIST OR LIFT OPERATOR OPENING NOTES RECEIVED PATIENT IN AWAKE, YELLING, A/O x1, CONFUSED. ON ROOM AIR, NO S/S OF SOB OR RESPIRATORY DISTRESS. ON TELE MONITORING, SHOWING SINUS RHYTHM WITH PVCs AT THIS HR 81. NO S/S OF CARDIAC DISTRESS. PATIENT IS INCONTINENT, ON BED REST. IV ACCESS R FA #20 G INTACT AND PATENT. L CHEST WALL PERMA CATH PRESENT, DRESSING INTACT NO S/S OF BLEEDING PRESENT. SKIN ISSUE: BILATERAL LOWER EXTREMITIES AND BILATERAL UPPER EXTREMITIES MULTIPLE REDNESS SPOTS. HAS SITTER BY BEDSIDE. SAFETY MEASURES IN PLACE: BED LOCKED AND IN LOWEST POSITION, SIDE RAILS UP x2, HEAD OF THE BED ELEVATED, CALL LIGHT WITHIN REACH. WILL CONTINUE TO MONITOR.
[2021-09-24 07:25] LABS: BASOPHILS # (AUTO) 0.1 K/uL (0.0-0.2); BASOPHILS % (AUTO) 1.3 % (0.0-2.0); EOSINOPHILS % (AUTO) 11.6 % (0.0-6.0); HEMATOCRIT 21 % (39-51); LYMPHOCYTES # (AUTO) 1.1 K/uL (0.8-4.8); LYMPHOCYTES % (AUTO) 20.5 % (20.0-44.0); MEAN CORPUSCULAR HGB CONC 34 g/dl (31.0-36.0); MEAN CORPUSCULAR VOLUME 95 fL (80-96); MONOCYTES # (AUTO) 0.7 K/uL (0.1-1.30); MONOCYTES % (AUTO) 12.9 % (2.0-12.0); NEUTROPHILS # (AUTO) 2.9 K/uL (1.8-8.9); NEUTROPHILS % (AUTO) 53.7 % (43.0-81.0); PLATELET COUNT (AUTO) 173 K/uL (150-450); RED BLOOD CELL COUNT(AUTO) 2.21 MIL/uL (4.5-6.0); WHITE BLOOD COUNT (AUTO) 5.4 K/uL (4.3-11.0)
[2021-09-24 07:28] LABS: HEMOGLOBIN 7.2 g/dL (13.5-17.5)
[2021-09-24 07:48] LABS: CALCIUM, SERUM 8.3 mg/dL (8.5-10.1); PHOSPHORUS 3.6 mg/dL (2.5-4.9); POTASSIUM 4.5 mmol/L (3.5-5.1)
[2021-09-24] MEDS: PHENYTOIN EXTENDED RELEASE 100 MG CAPSULE PO SCH ×3 (08:21→18:04)
[2021-09-24] MEDS: VIT B CMPLX 3/FA/VIT C/BIOTIN 1 TAB TABLET PO SCH (08:21)
[2021-09-24] MEDS: SEVELAMER CARBONATE 800 MG TABLET PO SCH ×3 (08:21→18:04)
[2021-09-24] MEDS: LEVETIRACETAM (250 MG) 250 MG TABLET PO SCH ×2 (08:22→21:56)
[2021-09-24] MEDS: FERROUS SULFATE (325 MG) 325 MG/TAB TABLET PO SCH ×2 (08:22→18:05)
[2021-09-24] MEDS: DIVALPROEX SODIUM 125 MG CAP.SPRINK PO SCH ×2 (08:23→21:56)
[2021-09-24] MEDS: HALOPERIDOL LACTATE INJ 5 MG/ML VIAL IM PRN ×2 (08:23→22:30)
--- NOTE | 2021-09-24 08:25 | NUR ---
RN NOTES PATIENT AGITATED AND YELLING, ATTEMPTED TO CALM AND REORIENT PATIENT. NON-PHARMACOLOGICAL INTERVENTIONS UNSUCCESSFUL. EMMY CALDWELL ADMINISTERED @0823. WILL CONTINUE TO MONITOR PATIENT.
[2021-09-24] MEDS: PROSTAT (PYXIS) 30 ML UDC PO SCH ×3 (08:39→17:00)
[2021-09-24] MEDS ORDERED: ASCORBIC ACID 250 MG TABLET PO SCH (09:00)
--- NOTE | 2021-09-24 13:30 | NUR ---
BANDAGE WRAPPING MACHINE OPERATOR NOTE BLOOD TRANSFUSION STARTED ORDERED.
--- NOTE | 2021-09-24 13:30 | NUR ---
POLICE SUPERINTENDENT NOTE PATIENT REFUSED TO WEAR TELE MONITOR, HOSPITALIST AWARE. WITH ORDER FOR BLOOD TRANSFUSION, READ AND VERIFIED WITH ANOTHER NURSE. STARTED BLOOD TRANSFUSION ORDERED. INITIAL BLOOD TRANSFUSION STARTED AND TOLERATED WELL. COMFORT MEASURES PROVIDED. IN STABLE CONDITION.
--- NOTE | 2021-09-24 14:43 | NUR ---
AIR QUALITY CONSULTANT NOTE UNABLE TO COMPLETE HEMODIALYSIS. HD NURSE ABLE TO TAKE OUT 600ML. IN STABLE CONDITION. STILL WITH ONGOING 1 U PRBC, INFUSING AND TOLERATING WELL.
--- NOTE | 2021-09-24 18:54 | NUR ---
COAL PIPELINE OPERATOR CLOSING NOTES PATIENT IN ASLEEP, A/O x1-2, UNCOOPERATIVE, COMBATIVE, YELLS AT TIMES. ON ROOM AIR, NO S/S OF SOB OR RESPIRATORY DISTRESS. ON TELE MONITORING, BUT REFUSE TO WEAR IT FOR THE ENTIRE SHIFT DESPITE EXPLANATIONS. WITH IV ACCESS R FA #20 G INTACT AND PATENT. L CHEST WALL PERMA CATH PRESENT, DRESSING INTACT NO S/S OF BLEEDING PRESENT. SKIN ISSUE: BILATERAL LOWER EXTREMITIES AND BILATERAL UPPER EXTREMITIES MULTIPLE REDNESS SPOTS. HAS SITTER BY BEDSIDE. S/P 1 U PRBC GIVEN, WITH NO ADVERSE REACTION NOTED. S/P HD TOOK OUT 600ML, TOLERATED WELL. SAFETY MEASURES IN PLACE: BED LOCKED AND IN LOWEST POSITION, SIDE RAILS UP x2, HEAD OF THE BED ELEVATED, CALL LIGHT WITHIN REACH. ENDORSED PATIENT FOR CONTINUITY OF CARE.
--- NOTE | 2021-09-24 19:57 | NUR ---
RN OPENING NOTES RECEIVED PT IN BED, ASLEEP, AWAKENS TO VERBAL STIMULI, WITH SITTER AT BEDSIDE. AOx2. ON RA AND TOLERATING WELL. NO SOB NOTED. NO S/SX OF RESPIRATORY DISTRESS NOTED. TELE MONITOR DETECTS SINUS RHYTHM WITH PVCs. IV ACCESS IN RFA #20G. IV IS INTACT, PATENT, AND FLUSHING WELL. SAFETY PRECAUTIONS IN PLACE: BED IN LOWEST, LOCKED POSITION, SIDERAILS UPx2, AND BRAKES ON. TABLE AND CALL LIGHT WITHIN REACH. WILL CONTINUE TO MONITOR.
--- NOTE | 2021-09-24 22:31 | NUR ---
RN NOTES ADMINISTERED HALO-PERIDOL IM FOR AGITATION. WILL CONTINUE TO MONITOR.
--- NOTE | 2021-09-25 06:55 | NUR ---
RN CLOSING NOTES PT IN BED, ASLEEP, AWAKENS TO VERBAL STIMULI, WITH SITTER AT BEDSIDE. AOx2. ON RA AND TOLERATING WELL. NO SOB NOTED. NO S/SX OF RESPIRATORY DISTRESS NOTED. TELE MONITOR DETECTS SINUS RHYTHM WITH PVCs. IV ACCESS IN RFA #20G. IV IS INTACT, PATENT, AND FLUSHING WELL. ALL ORDERS CARRIED OUT. ALL NEEDS MET. PT KEPT CLEAN AND DRY. SAFETY PRECAUTIONS IN PLACE: BED IN LOWEST, LOCKED POSITION, SIDERAILS UPx2, AND BRAKES ON. TABLE AND CALL LIGHT WITHIN REACH. WILL ENDORSE TO ONCOMING SHIFT FOR STEVEN.
--- NOTE | 2021-09-25 07:14 | NUR ---
SKI PATROL OPENING NOTE RECEIVED PATIENT IN AWAKE, YELLING, A/O x1-2. ON ROOM AIR, NO S/S OF SOB OR RESPIRATORY DISTRESS. PATIENT REMOVES TELE MONITOR. NO S/S OF CARDIAC DISTRESS. PATIENT IS INCONTINENT, ON BED REST. IV ACCESS R FA #20 G INTACT AND PATENT. L CHEST WALL PERMA CATH PRESENT, DRESSING INTACT NO S/S OF BLEEDING PRESENT. SKIN ISSUE: BILATERAL LOWER EXTREMITIES AND BILATERAL UPPER EXTREMITIES MULTIPLE REDNESS SPOTS. HAS SITTER BY BEDSIDE. SAFETY MEASURES IN PLACE: BED LOCKED AND IN LOWEST POSITION, SIDE RAILS UP x2, HEAD OF THE BED ELEVATED, CALL LIGHT WITHIN REACH. WILL CONTINUE TO MONITOR.
[2021-09-25 07:23] LABS: BASOPHILS # (AUTO) 0.1 K/uL (0.0-0.2); BASOPHILS % (AUTO) 1.1 % (0.0-2.0); EOSINOPHILS % (AUTO) 11.5 % (0.0-6.0); HEMATOCRIT 23 % (39-51); HEMOGLOBIN 8.1 g/dL (13.5-17.5); LYMPHOCYTES # (AUTO) 1.2 K/uL (0.8-4.8); LYMPHOCYTES % (AUTO) 20.4 % (20.0-44.0); MEAN CORPUSCULAR HGB CONC 35 g/dl (31.0-36.0); MEAN CORPUSCULAR VOLUME 94 fL (80-96); MONOCYTES # (AUTO) 0.8 K/uL (0.1-1.30); MONOCYTES % (AUTO) 12.8 % (2.0-12.0); NEUTROPHILS # (AUTO) 3.2 K/uL (1.8-8.9); NEUTROPHILS % (AUTO) 54.2 % (43.0-81.0); PLATELET COUNT (AUTO) 163 K/uL (150-450); RED BLOOD CELL COUNT(AUTO) 2.48 MIL/uL (4.5-6.0); WHITE BLOOD COUNT (AUTO) 5.9 K/uL (4.3-11.0)
[2021-09-25] MEDS: SEVELAMER CARBONATE 800 MG TABLET PO SCH ×3 (08:40→17:16)
[2021-09-25] MEDS: DIVALPROEX SODIUM 125 MG CAP.SPRINK PO SCH (08:40)
[2021-09-25] MEDS: PHENYTOIN EXTENDED RELEASE 100 MG CAPSULE PO SCH ×3 (08:40→17:16)
[2021-09-25] MEDS: FERROUS SULFATE (325 MG) 325 MG/TAB TABLET PO SCH ×2 (08:40→17:15)
[2021-09-25] MEDS: VIT B CMPLX 3/FA/VIT C/BIOTIN 1 TAB TABLET PO SCH (08:41)
[2021-09-25] MEDS: LEVETIRACETAM (250 MG) 250 MG TABLET PO SCH (08:41)
[2021-09-25] MEDS ORDERED: ASCORBIC ACID 500 MG TABLET PO SCH (09:00)
[2021-09-25] MEDS: PROSOURCE / PROSTAT (PYXIS) 30 ML UDC PO SCH ×3 (10:13→17:17)
--- NOTE | 2021-09-25 12:00 | NUR ---
MS RN NOTE SEEN BY HOSPITALIST MARTINA, WITH ORDER FOR DISCHARGE. HEALTH TEACHING DONE ORDERED, VERBALIZED UNDERSTANDING. COMFORT MEASURES PROVIDED. CALLED FACILITY FOR ENDORSEMENT, SPOKE WITH ANALYN. AWAITING TRANSPORTATION.
[2021-09-25] MEDS ORDERED: hydrALAZINE HCL IV 20 MG VIAL IV PRN (13:30)
[2021-09-25 13:33] VITALS: BP 190/92
--- NOTE | 2021-09-25 13:35 | NUR ---
MS RN NOTE TRANSPORTATION ARRIVED BUT PATIENT'S BP WAS 190/92, NO SIGNS AND SYMPTOMS OF HYPERTENSION NOTED. LEATHER SOFTENER MARTINA NOTIFIED WITH ORDERS READ AND VERIFIED. AMBULANCE ADVISED TO RETURN WHEN BP IS DOWN TO NORMAL AND FLAMER AFTER LASTING NOTIFIED WELL.
--- NOTE | 2021-09-25 15:00 | NUR ---
MS RN NOTE LATEST SBP IN 160'S. CALLED [facility] AND SPOKE WITH JAYLENE IF THEY WILL ACCEPT THE PATIENT . AND SHE SAID YES. CALLED [facility] TO SET UP DITCH REPAIRER. PATIENT IN STABLE CONDITION. AWAITING PICK-UP.
--- NOTE | 2021-09-25 18:30 | NUR ---
MS RN NOTE PATIENT DISCHARGED ORDERED. FACILITY [facility] NOTIFIED OF LATEST SBP ON 160'S AND WILL ACCEPT THE PATIENT. PATIENT PICKED UP BY AMBULANCE AND ENDORSED DOCUMENTS TO EMT. WITH LATEST SBP IN 140'S. IN STABLE CONDITION. IV ACCESS REMOVED AND COVERED WITH DRY DRESSING. IN STABLE CONDITION. TRANSPORTED ON THE GURNEY ACCOMPANIED BY 2 EMT PERSONNEL. ENDORSED ACCORDINGLY.
== END 2021-09-25 18:40 | DRG 682 ==
LOC: ER 16:04 → MED 22:01 → TELE 22:04 → MED 09-25 11:53
PROVIDERS: ADMIT Nurse Practitioner Acute Care; ATTEND Nurse Practitioner Acute Care
PROC: 30233N1 Transfusion of Nonautologous Red Blood Cells into Peripheral Vein, Percutaneous Approach (ICD-10-PCS; principal; 2021-09-23)
PROC: 5A1D70Z Performance of Urinary Filtration, Intermittent, Less than 6 Hours Per Day (ICD-10-PCS; 2021-09-24)
DX: N18.6 End stage renal disease (principal); G93.41 Metabolic encephalopathy; E44.0 Moderate protein-calorie malnutrition; E11.22 Type 2 diabetes mellitus with diabetic chronic kidney disease; G40.909 Epilepsy, unspecified, not intractable, without status epilepticus; Z20.822 Contact with and (suspected) exposure to COVID-19; F03.90 Unspecified dementia, unspecified severity, without behavioral disturbance, psychotic disturbance, mood disturbance, and anxiety; F20.9 Schizophrenia, unspecified; J44.9 Chronic obstructive pulmonary disease, unspecified; E88.09 Other disorders of plasma-protein metabolism, not elsewhere classified; Z99.2 Dependence on renal dialysis; M89.8X9 Other specified disorders of bone, unspecified site; E87.5 Hyperkalemia; D63.8 Anemia in other chronic diseases classified elsewhere; Z86.711 Personal history of pulmonary embolism
CPT/HCPCS: 36415; 71045-TC; 80048-TC; 80076-TC; 80164-TC; 80185-TC; 83540-TC; 83735-TC; 84100-TC; 84484-TC; 85025-TC; 85730-TC; 86850-TC; C9803; G0378; J0360; J0885; J1200; J1630; J2060; J3490; J7030; J7040; P9016

== ENCOUNTER 2021-10-13 16:27 | Inpatient (IN) | payer MEDICARE, OTHER ==
[~2021-10-13] VITALS: Ht 188 cm; Wt 80.7 kg
[~2021-10-13 16:27] MED LIST changes: -LORA-259 PO
--- NOTE | 2021-10-13 16:35 | NUR ---
VIOLETA PA FROM [facility] FOR LOW H/H. THE PATIENT DENIES PAIN. IN ROOM AIR AND DENIES SOB. RESPIRATION REGULAR AND UNLABORED. THE PATIENT IS ATTACHED TO THE MONITOR. WARM BLANKET PROVIDED FOR COFMORT. WILL CONTINUE TO MONITOR THE PATIENT.
[2021-10-13] MEDS ORDERED: LORAZEPAM INJ 2 MG/ML VIAL IV ONE (17:00)
[2021-10-13] MEDS ORDERED: diphenhydrAMINE HCL 50 MG/ML VIAL IV ONE (17:00)
--- NOTE | 2021-10-13 17:12 | NUR ---
IV LINE IS ESTABLISHED, BLOOD SPECIMEN COLLECTED AND SENT TO THE LAB. THE LINE IS SALINE LOCKED.
[2021-10-13] MEDS ORDERED: diphenhydrAMINE HCL 50 MG/ML VIAL ONE (17:13)
[2021-10-13] MEDS ORDERED: LORAZEPAM INJ 2 MG/ML VIAL ONE (17:13)
[2021-10-13] MEDS ORDERED: LORA-259 PO (17:18)
[2021-10-13] MEDS ORDERED: RISP1TAB7 PO (17:18)
[2021-10-13 17:36] LABS: BASOPHILS # (AUTO) 0.1 K/uL (0.0-0.2); BASOPHILS % (AUTO) 0.9 % (0.0-2.0); EOSINOPHILS % (AUTO) 13.3 % (0.0-6.0); LYMPHOCYTES # (AUTO) 1.3 K/uL (0.8-4.8); LYMPHOCYTES % (AUTO) 19.4 % (20.0-44.0); MEAN CORPUSCULAR HGB CONC 35 g/dl (31.0-36.0); MEAN CORPUSCULAR VOLUME 92 fL (80-96); MONOCYTES # (AUTO) 0.8 K/uL (0.1-1.30); MONOCYTES % (AUTO) 12.3 % (2.0-12.0); NEUTROPHILS # (AUTO) 3.7 K/uL (1.8-8.9); NEUTROPHILS % (AUTO) 54.1 % (43.0-81.0); PLATELET COUNT (AUTO) 159 K/uL (150-450); RED BLOOD CELL COUNT(AUTO) 2.04 MIL/uL (4.5-6.0); WHITE BLOOD COUNT (AUTO) 6.8 K/uL (4.3-11.0)
[2021-10-13 17:48] LABS: CALCIUM, SERUM 8.2 mg/dL (8.5-10.1); CREATININE 5.5 mg/dL (0.6-1.3); POTASSIUM 5.9 mmol/L (3.5-5.1)
[2021-10-13 17:50] LABS: HEMOGLOBIN 6.7 g/dL (13.5-17.5)
[2021-10-13 17:51] LABS: HEMATOCRIT 19 % (39-51)
--- NOTE | 2021-10-13 18:07 | NUR ---
SWAB FOR COVID19 SENT TO LAB
[2021-10-13] MEDS ORDERED: OLANZAPINE 10 MG VIAL IM ONE ×2 (18:21→18:30)
[2021-10-13] MEDS ORDERED: SODIUM POLYSTYRENE SULFONATE 15 G/60 ML BOTTLE PO ONE ×2 (18:30→20:30)
[2021-10-13] MEDS ORDERED: ACETAMINOPHEN ES 500 MG TABLET PO ONE (18:30)
[2021-10-13 19:01] LABS: EOSINOPHILS % (MANUAL) 13 % (0-4); LYMPHOCYTES % (MANUAL) 21 % (16-48); MONOCYTES % (MANUAL) 4 % (0-11.0); NEUTROPHILS % (MANUAL) 62 (42-76)
--- NOTE | 2021-10-13 19:06 | NUR ---
MOVE SHEET SUBMITTED.
[2021-10-13] MEDS ORDERED: SODIUM POLYSTYRENE SULFONATE 15 G/60 ML BOTTLE ONE (19:09)
[2021-10-13] MEDS ORDERED: ACETAMINOPHEN ES 500 MG TABLET ONE (19:10)
--- NOTE | 2021-10-13 19:35 | NUR ---
BLOOD TRANSFUSION INITIATED AT 75ML/HR. BLOOD VERIFIED BY 2 RNS PRIOR TO INFUSION. ALL V/S WNL PRIOR TO ADMINISTRATION. PT EDUCATED ON S/S OF REACTION AND CALL LIGHT WITHIN REACH.
--- NOTE | 2021-10-13 19:50 | NUR ---
PT TOLERATING TRANSFUSION WELL NO S/S OF TRANSFUSION REACTION. INFUSION RATE INCREASED TO 145ML/HR.
[2021-10-13] MEDS ORDERED: MAGNESIUM HYDROXIDE 30 ML UDC PO PRN (20:00)
[2021-10-13] MEDS ORDERED: LORAZEPAM INJ 2 MG/ML VIAL IM PRN (20:00)
[2021-10-13] MEDS ORDERED: MAG HYDROX/AL HYDROX/SIMETH 30 ML UDC PO PRN (20:00)
[2021-10-13] MEDS ORDERED: ACETAMINOPHEN 325 MG TABLET PO PRN (20:00)
[2021-10-13] MEDS ORDERED: Z GUARD REMEDY 4 OZ OINT TP PRN (20:00)
[2021-10-13] MEDS ORDERED: ONDANSETRON HCL/PF 4 MG/2 ML VIAL IVP PRN (20:00)
[2021-10-13] MEDS ORDERED: BISACODYL SUPP (10 MG) 10 MG/SUPP.RECT SUPP.RECT RC PRN (20:00)
[2021-10-13] MEDS ORDERED: LORAZEPAM 1 MG TABLET PO SCH (20:00)
[2021-10-13] MEDS ORDERED: INSULIN REGULAR, HUMAN 100 UNIT/ML 3 ML VIAL SQ PRN (20:30)
[2021-10-13] MEDS ORDERED: DEXTROSE 50%-WATER 50 ML DISP.SYRIN IV PRN (20:30)
--- NOTE | 2021-10-13 21:30 | NUR ---
BLOOD TRANSFUSION COMPLETED WITHOUT COMPLICATION, PT TOLERATED WELL ALL V/S WNL.
--- NOTE | 2021-10-13 21:41 | NUR ---
CALLED FOR REPORT AND NURSE WILL CALL BACK
[2021-10-13] MEDS ORDERED: BENZTROPINE MESYLATE (1 MG) 1 MG TABLET PO SCH (22:00)
--- NOTE | 2021-10-13 22:06 | NUR ---
REPORT GIVEN TO TONG MONREAL FOR STEVEN
--- NOTE | 2021-10-13 22:28 | NUR ---
PT TRANSPORTED TO ROOM 309 ON CARDIAC PER ACLS IN STABLE CONDITION
--- NOTE | 2021-10-13 22:30 | NUR ---
RN ADMITTING NOTE PATIENT ADMITTED FROM ER FOR SEVERE ANEMIA, PATIENT ABLE TO UNDERSTAND SIMPLE INSTRUCTIONS AND QUESTIONS, MILDLY AGITATES SAYING "JUST LET ME GO TO BED! I'M TIRED I WANT TO GO TO BED!". UNABLE TO OBTAIN ANY INFORMATION. PATIENT IS ON TELE MONITOR, READING SR 79 BPM. S/P 1 UNIT PRBC. PATIENT NOT IN ANY APPRENT DISTRESS. TOLERATING ROOM AIR. RFA 22 G PATENT AND INTACT, WRAPPED IN KERLIX TO PREVENT PATIENT FROM PULLING ON PIV. SAFETY MEASURES IN PLACE: BED LOCKED AND IN LOWEST POSITION, CALL LIGHT WITHIN REACH, SIDE RAILS UP. BED ALARM ON. WILL MONITOR PATIENT CLOSELY.
[2021-10-13] MEDS: DIVALPROEX SODIUM 125 MG CAP.SPRINK PO SCH (22:53)
[2021-10-13] MEDS: BLOOD SUGAR DIAGNOSTIC 1 EACH STRIP IN SCH (22:54)
--- NOTE | 2021-10-13 22:54 | NUR ---
RN NOTE BS 104 MG/DL, NO COVERAGE GIVEN. PATIENT FED SOME PUDDING. WILL MONITOR FOR HYPO/HYPERGLYCEMIA.
--- NOTE | 2021-10-13 23:00 | NUR ---
UNABLE TO TAKE PHOTOS AND CHECK THE REST OF PATIENT'S BODY (ONLY DID ARMS AND THIGHS), PATIENT WOULD NOT PERMIT US TO DO SO.
[2021-10-14] VITALS: BP 132/75
[2021-10-14 04:00] VITALS: BP 150/84
[2021-10-14] MEDS: HALOPERIDOL LACTATE INJ 5 MG/ML VIAL IM PRN ×2 (04:46→09:08)
--- NOTE | 2021-10-14 04:46 | NUR ---
HALDOL IM ADMINISTERED TO PATIENT D/T SEVERE AGITATION.
[2021-10-14] MEDS: BLOOD SUGAR DIAGNOSTIC 1 EACH STRIP IN SCH ×4 (06:33→16:28)
--- NOTE | 2021-10-14 06:48 | NUR ---
RN CLOSING NOTE PATIENT IN BED, AWAKE. PATIENT REDIRECTABLE AT TIMES, PATIENT YELLS. PATIENT IS ON TELE MONITOR READS SR 88 BPM. PATIENT NOT IN PAIN. PATIENT'S BS 82 MG/DL, GAVE PATIENT SOME CHOCOLATE PUDDING. PATIENT ON CONTACT PRECAUTION FOR SUSPECTED SCABIES. RFA IV ACCESS STILL PATENT AND INTACT. SAFETY MEASURES IMPLEMENTED. ALL NEEDS MET AND ATTENDED. ALL ORDERS CARRIED OUT. WILL ENDORSE TO DAY SHIFT NURSE FOR STEVEN.
[2021-10-14 06:51] LABS: BASOPHILS # (AUTO) 0.1 K/uL (0.0-0.2); BASOPHILS % (AUTO) 1.1 % (0.0-2.0); EOSINOPHILS % (AUTO) 16.9 % (0.0-6.0); HEMATOCRIT 22 % (39-51); HEMOGLOBIN 7.6 g/dL (13.5-17.5); LYMPHOCYTES # (AUTO) 1.2 K/uL (0.8-4.8); LYMPHOCYTES % (AUTO) 19.5 % (20.0-44.0); MEAN CORPUSCULAR HGB CONC 35 g/dl (31.0-36.0); MEAN CORPUSCULAR VOLUME 91 fL (80-96); MONOCYTES # (AUTO) 0.7 K/uL (0.1-1.30); MONOCYTES % (AUTO) 12.1 % (2.0-12.0); NEUTROPHILS % (AUTO) 50.4 % (43.0-81.0); PLATELET COUNT (AUTO) 154 K/uL (150-450); RED BLOOD CELL COUNT(AUTO) 2.37 MIL/uL (4.5-6.0)
--- NOTE | 2021-10-14 07:00 | NUR ---
BACK PAD INSPECTOR OPENING NOTES PATIENT LAYING IN BED, UNABLE TO OBTAIN A/O SCORE DUE TO AGITATION. TELE MONITOR IN PLACE READING SR 86. NO COMPLAINTS OF PAIN AT THIS TIME. CONTACT PRECAUTIONS DUE TO SUSPECTED SCABIES. RFA # 20 G SL CLEAN, INTACT, AND FLUSHING WELL. SAFETY MEASURES IN PLACE: BED IN LOWEST LOCKED POSITION, SIDE RAILS UP X 2, CALL LIGHT WITHIN REACH. WILL CONTINUE TO MONITOR.
[2021-10-14 07:11] LABS: CALCIUM, SERUM 8.3 mg/dL (8.5-10.1); CREATININE 6.3 mg/dL (0.6-1.3); MAGNESIUM 2.2 mg/dL (1.8-2.4); PHOSPHORUS 4.7 mg/dL (2.5-4.9); POTASSIUM 5.2 mmol/L (3.5-5.1)
[2021-10-14] MEDS: diphenhydrAMINE HCL 50 MG/ML VIAL IM PRN ×2 (07:11→11:51)
--- NOTE | 2021-10-14 07:11 | NUR ---
ATIVAN IM AND BENADRYL IM GIVEN DT SEVERE AGITATION AND DELUSION. SOFT WRIST RESTRAINTS PUT ON ANS PATIENT IS CONFUSED AND KEEPS TRYING TO LEAVE AND GET OUT OF BED HIGH FALL RISK
[2021-10-14] MEDS: SEVELAMER CARBONATE 800 MG TABLET PO SCH ×4 (07:32→17:01)
[2021-10-14] MEDS: PHENYTOIN EXTENDED RELEASE 100 MG CAPSULE PO SCH ×4 (08:21→16:27)
[2021-10-14] MEDS: PANTOPRAZOLE 40 MG VIAL IV SCH ×2 (08:21→08:42)
[2021-10-14] MEDS: DIVALPROEX SODIUM 125 MG CAP.SPRINK PO SCH ×2 (08:22→08:42)
[2021-10-14] MEDS: VIT B CMPLX 3/FA/VIT C/BIOTIN 1 TAB TABLET PO SCH ×2 (08:22→08:43)
[2021-10-14] MEDS: LEVETIRACETAM (250 MG) 250 MG TABLET PO SCH ×3 (08:22→16:27)
[2021-10-14] MEDS: ASCORBIC ACID 500 MG TABLET PO SCH ×2 (08:23→08:43)
[2021-10-14] MEDS: FERROUS SULFATE (325 MG) 325 MG/TAB TABLET PO SCH ×3 (08:23→16:27)
[2021-10-14] MEDS: risperiDONE 1 MG TABLET PO SCH ×2 (08:24→08:43)
[2021-10-14] MEDS: PROSOURCE / PROSTAT (PYXIS) 30 ML UDC PO SCH ×5 (08:24→16:28)
[2021-10-14] MEDS ORDERED: OLANZAPINE 10 MG VIAL IM PRN (12:00)
[2021-10-14] MEDS: EPOETIN ALFA (4000 UNIT) 4,000 UNIT/ML VIAL IV SCH ×2 (14:49→15:00)
[2021-10-14] MEDS: PERMETHRIN 5% CRM 60 GM TUBE TP ONE ×2 (14:50→15:43)
[2021-10-14] MEDS ORDERED: OLAN5TAB6 PO (15:43)
[2021-10-14] MEDS ORDERED: EPOE40002 IV (15:43)
[2021-10-14] MEDS ORDERED: OLAN10VI IM (15:43)
[2021-10-14] MEDS ORDERED: OLANZAPINE ZYDIS 5 MG TAB.RAPDIS PO SCH (17:00)
--- NOTE | 2021-10-14 17:00 | NUR ---
MS NICKEL OPERATOR NOTES PATIENT MADE AWARE OF MD DISCHARGE ORDERS AND INSTRUCTIONS. PATIENT VERBALIZED UNDERSTANDING OF MD DISCHARGE INSTRUCTIONS BUT UNABLE TO SIGN, CO-SIGNED MD INSTRUCTIONS FORM WITH MD. PATIENT VERBALIZED POSSESSION OF ALL BELONGINGS BUT UNABLE TO SIGN, BELONGINGS LIST CO-SIGNED WITH RN. IV LINE AND ID BAND REMOVED. FULL REPORT GIVEN TO RN AT RECEIVING FACILITY ([facility]). PATIENT TRANSPORTED TO [facility] WITH 2 BUSINESS SOLUTIONS CONSULTANT AND TRANSFERRED OFF OF UNIT WITHOUT INCIDENT. PATIENT STABLE AT TIME OF DISCHARGE. Addendum: 10/14/21 at 1933 by CHARISSE DELACRUZ RN PATIENT REFUSED SKIN ASSESSMENT DURING SHIFT
== END 2021-10-14 17:15 | DRG 698 ==
LOC: ER 16:37 → TELE 21:28 → MED 10-14 09:11
PROVIDERS: ADMIT Nurse Practitioner Acute Care; ATTEND Nurse Practitioner Family
PROC: 30233N1 Transfusion of Nonautologous Red Blood Cells into Peripheral Vein, Percutaneous Approach (ICD-10-PCS; 2021-10-13)
PROC: 5A1D70Z Performance of Urinary Filtration, Intermittent, Less than 6 Hours Per Day (ICD-10-PCS; principal; 2021-10-14)
DX: E11.22 Type 2 diabetes mellitus with diabetic chronic kidney disease (principal); G93.41 Metabolic encephalopathy; E44.0 Moderate protein-calorie malnutrition; F03.91 Unspecified dementia, unspecified severity, with behavioral disturbance; N18.6 End stage renal disease; D63.8 Anemia in other chronic diseases classified elsewhere; Z20.822 Contact with and (suspected) exposure to COVID-19; Z99.2 Dependence on renal dialysis; G40.909 Epilepsy, unspecified, not intractable, without status epilepticus; F20.9 Schizophrenia, unspecified; J44.9 Chronic obstructive pulmonary disease, unspecified; F31.9 Bipolar disorder, unspecified; R26.9 Unspecified abnormalities of gait and mobility; Z88.6 Allergy status to analgesic agent; Z88.8 Allergy status to other drugs, medicaments and biological substances; Z79.899 Other long term (current) drug therapy; E87.5 Hyperkalemia; E83.51 Hypocalcemia; M89.8X9 Other specified disorders of bone, unspecified site; Z86.711 Personal history of pulmonary embolism; Z87.09 Personal history of other diseases of the respiratory system
CPT/HCPCS: 36415; 80048-TC; 82607-TC; 82728-TC; 82962-TC; 83540-TC; 83735-TC; 84100-TC; 85025-TC; 85730-TC; 86706; 86850-TC; 87081-TC; 87340; 90935-TC; C9113; C9803; G0378; J0885; J1200; J1630; J1815; J2060; J3490; J7040; P9016

== ENCOUNTER 2021-11-04 10:45 | Inpatient (IN) | payer MEDICARE, OTHER ==
[~2021-11-04] VITALS: Ht 182.9 cm; Wt 85.7 kg
[~2021-11-04 10:45] MED LIST changes: -EPOE1000 SQ; +EPOE40002 IV; -HALO5SYR IM; +LORA-259 PO; +OLAN10VI IM; +OLAN5TAB6 PO; +RISP1TAB7 PO
[2021-11-04] MEDS ORDERED: OLANZAPINE 10 MG VIAL IM ONE ×2 (11:24→11:30)
[2021-11-04] MEDS ORDERED: diphenhydrAMINE HCL 50 MG/ML VIAL ONE (11:24)
[2021-11-04] MEDS ORDERED: LORAZEPAM INJ 2 MG/ML VIAL ONE ×2 (11:25→13:12)
[2021-11-04] MEDS ORDERED: LORAZEPAM INJ 2 MG/ML VIAL IV ONE ×2 (11:30→13:30)
[2021-11-04] MEDS ORDERED: diphenhydrAMINE HCL 50 MG/ML VIAL IV ONE ×2 (11:30→15:30)
[2021-11-04 11:48] LABS: BASOPHILS # (AUTO) 0.1 K/uL (0.0-0.2); EOSINOPHILS % (AUTO) 10.2 % (0.0-6.0); LYMPHOCYTES # (AUTO) 1.3 K/uL (0.8-4.8); LYMPHOCYTES % (AUTO) 23.3 % (20.0-44.0); MEAN CORPUSCULAR HGB CONC 34 g/dl (31.0-36.0); MEAN CORPUSCULAR VOLUME 96 fL (80-96); MONOCYTES # (AUTO) 0.6 K/uL (0.1-1.30); MONOCYTES % (AUTO) 10.3 % (2.0-12.0); NEUTROPHILS # (AUTO) 3.1 K/uL (1.8-8.9); NEUTROPHILS % (AUTO) 55.2 % (43.0-81.0); PLATELET COUNT (AUTO) 175 K/uL (150-450); WHITE BLOOD COUNT (AUTO) 5.7 K/uL (4.3-11.0)
[2021-11-04 11:50] LABS: RED BLOOD CELL COUNT(AUTO) 1.74 MIL/uL (4.5-6.0)
[2021-11-04 11:51] LABS: HEMATOCRIT 17 % (39-51); HEMOGLOBIN 5.8 g/dL (13.5-17.5)
[2021-11-04 12:24] LABS: ALBUMIN 2.9 g/dL (3.4-5.0); BILIRUBIN,DIRECT 0.1 mg/dL (0.0-0.2); BILIRUBIN,TOTAL 0.3 mg/dL (0.2-1.0); CALCIUM, SERUM 8.3 mg/dL (8.5-10.1); TOTAL PROTEIN, SERUM 6.1 g/dL (6.4-8.2)
[2021-11-04 12:52] LABS: CREATININE 7.6 mg/dL (0.6-1.3); POTASSIUM 6.3 mmol/L (3.5-5.1)
[2021-11-04] MEDS ORDERED: SODIUM POLYSTYRENE SULFONATE 15 G/60 ML BOTTLE ONE (13:14)
[2021-11-04] MEDS ORDERED: Calcium Gluconate 0.465 MEQ/ML VIAL IV ONE ×2 (13:24→13:30)
[2021-11-04] MEDS ORDERED: SODIUM BICARBONATE 5 MEQ/10 ML DISP.SYRIN IV ONE (13:25)
[2021-11-04] MEDS ORDERED: INSULIN REGULAR, HUMAN 100 UNIT/ML 10 ML VIAL ONE (13:25)
[2021-11-04] MEDS ORDERED: DEXTROSE 50%-WATER 50 ML DISP.SYRIN ONE (13:25)
[2021-11-04] MEDS ORDERED: DEXTROSE 50%-WATER 50 ML DISP.SYRIN IVP ONE (13:30)
[2021-11-04] MEDS ORDERED: SODIUM BICARBONATE SYR 50 MEQ/50 ML DISP.SYRIN IV ONE (13:30)
[2021-11-04] MEDS ORDERED: INSULIN REGULAR, HUMAN 100 UNIT/ML 10 ML VIAL IV ONE (13:30)
[2021-11-04] MEDS ORDERED: SODIUM POLYSTYRENE SULFONATE 15 G/60 ML BOTTLE PO ONE (13:30)
[2021-11-04] MEDS ORDERED: SODIUM BICARBONATE SYR 50 MEQ/50 ML DISP.SYRIN ONE (13:34)
[2021-11-04 13:55] LABS: EOSINOPHILS % (MANUAL) 12 % (0-4); LYMPHOCYTES % (MANUAL) 26 % (16-48); MONOCYTES % (MANUAL) 10 % (0-11.0); NEUTROPHILS % (MANUAL) 52 (42-76)
[2021-11-04 16:00] VITALS: BP 160/81
[2021-11-04] MEDS ORDERED: MAG HYDROX/AL HYDROX/SIMETH 30 ML UDC PO PRN (16:00)
[2021-11-04] MEDS ORDERED: ACETAMINOPHEN 325 MG TABLET PO PRN ×2 (16:00→17:30)
[2021-11-04] MEDS ORDERED: MAGNESIUM HYDROXIDE 30 ML UDC PO PRN (16:00)
[2021-11-04] MEDS ORDERED: ONDANSETRON HCL/PF 4 MG/2 ML VIAL IVP PRN (16:00)
[2021-11-04] MEDS ORDERED: Z GUARD REMEDY 4 OZ OINT TP PRN (16:00)
[2021-11-04 16:18] LABS: CALCIUM, SERUM 8.3 mg/dL (8.5-10.1); CREATININE 7.2 mg/dL (0.6-1.3); POTASSIUM 5.6 mmol/L (3.5-5.1)
[2021-11-04] MEDS ORDERED: LORAZEPAM 1 MG TABLET PO SCH (17:30)
[2021-11-04] MEDS: SEVELAMER CARBONATE 800 MG TABLET PO SCH (18:42)
[2021-11-04 20:00] VITALS: BP 166/96
[2021-11-04] MEDS: DIVALPROEX SODIUM 125 MG CAP.SPRINK PO SCH (21:11)
[2021-11-04] MEDS ORDERED: ZOLPIDEM TARTRATE 5 MG TABLET PO PRN (22:00)
[2021-11-05] VITALS (9 sets, daily range): BP systolic 130–146; BP diastolic 78–90
[2021-11-05] MEDS ORDERED: LORAZEPAM INJ 2 MG/ML VIAL IM/IV ONE (05:00)
[2021-11-05] MEDS: LORAZEPAM INJ 2 MG/ML VIAL IM PRN (08:01)
[2021-11-05 08:17] LABS: CREATININE 5.8 mg/dL (0.6-1.3); MAGNESIUM 2.1 mg/dL (1.8-2.4); PHOSPHORUS 5.2 mg/dL (2.5-4.9); POTASSIUM 5.4 mmol/L (3.5-5.1)
[2021-11-05] MEDS ORDERED: PANTOPRAZOLE 40 MG VIAL IV SCH (09:00)
[2021-11-05 09:18] LABS: BASOPHILS # (AUTO) 0.1 K/uL (0.0-0.2); BASOPHILS % (AUTO) 0.9 % (0.0-2.0); EOSINOPHILS % (AUTO) 7.7 % (0.0-6.0); LYMPHOCYTES % (AUTO) 15.6 % (20.0-44.0); MEAN CORPUSCULAR HGB CONC 35 g/dl (31.0-36.0); MEAN CORPUSCULAR VOLUME 93 fL (80-96); MONOCYTES # (AUTO) 0.5 K/uL (0.1-1.30); MONOCYTES % (AUTO) 7.9 % (2.0-12.0); NEUTROPHILS # (AUTO) 4.2 K/uL (1.8-8.9); NEUTROPHILS % (AUTO) 67.9 % (43.0-81.0); PLATELET COUNT (AUTO) 176 K/uL (150-450); WHITE BLOOD COUNT (AUTO) 6.3 K/uL (4.3-11.0)
[2021-11-05 09:25] LABS: HEMATOCRIT 19 % (39-51); HEMOGLOBIN 6.5 g/dL (13.5-17.5)
[2021-11-05] MEDS: DIVALPROEX SODIUM 125 MG CAP.SPRINK PO SCH ×2 (12:25→20:33)
[2021-11-05] MEDS: PHENYTOIN EXTENDED RELEASE 100 MG CAPSULE PO SCH ×3 (12:25→16:27)
[2021-11-05] MEDS: SEVELAMER CARBONATE 800 MG TABLET PO SCH ×3 (12:25→17:47)
[2021-11-05] MEDS: LEVETIRACETAM (250 MG) 250 MG TABLET PO SCH ×2 (12:25→16:27)
[2021-11-05] MEDS: FERROUS SULFATE (325 MG) 325 MG/TAB TABLET PO SCH ×2 (12:25→16:27)
[2021-11-05] MEDS: risperiDONE 1 MG TABLET PO SCH ×3 (12:26→16:27)
[2021-11-05] MEDS: OLANZAPINE ZYDIS 5 MG TAB.RAPDIS PO SCH (16:27)
[2021-11-06 04:00] VITALS: BP 148/73
[2021-11-06] MEDS: LORAZEPAM INJ 2 MG/ML VIAL IM PRN (04:58)
[2021-11-06 07:07] LABS: CREATININE 5.1 mg/dL (0.6-1.3); PHOSPHORUS 5.4 mg/dL (2.5-4.9); POTASSIUM 4.6 mmol/L (3.5-5.1)
[2021-11-06 07:15] LABS: BASOPHILS % (AUTO) 0.7 % (0.0-2.0); EOSINOPHILS % (AUTO) 10.7 % (0.0-6.0); HEMOGLOBIN 7.1 g/dL (13.5-17.5); LYMPHOCYTES # (AUTO) 1.1 K/uL (0.8-4.8); LYMPHOCYTES % (AUTO) 19.2 % (20.0-44.0); MEAN CORPUSCULAR HGB CONC 37 g/dl (31.0-36.0); MEAN CORPUSCULAR VOLUME 91 fL (80-96); MONOCYTES # (AUTO) 0.7 K/uL (0.1-1.30); MONOCYTES % (AUTO) 12.1 % (2.0-12.0); NEUTROPHILS # (AUTO) 3.3 K/uL (1.8-8.9); NEUTROPHILS % (AUTO) 57.3 % (43.0-81.0); PLATELET COUNT (AUTO) 165 K/uL (150-450); RED BLOOD CELL COUNT(AUTO) 2.11 MIL/uL (4.5-6.0); WHITE BLOOD COUNT (AUTO) 5.7 K/uL (4.3-11.0)
[2021-11-06 07:56] LABS: HEMATOCRIT 19 % (39-51)
[2021-11-06 08:17] VITALS: BP 147/64
[2021-11-06] MEDS: PHENYTOIN EXTENDED RELEASE 100 MG CAPSULE PO SCH ×3 (08:29→17:01)
[2021-11-06] MEDS: SEVELAMER CARBONATE 800 MG TABLET PO SCH ×3 (08:29→18:00)
[2021-11-06] MEDS: PANTOPRAZOLE 40 MG TABLET.DR PO SCH (08:29)
[2021-11-06] MEDS: DIVALPROEX SODIUM 125 MG CAP.SPRINK PO SCH ×2 (08:29→20:44)
[2021-11-06] MEDS: LEVETIRACETAM (250 MG) 250 MG TABLET PO SCH ×2 (08:29→17:01)
[2021-11-06] MEDS: FERROUS SULFATE (325 MG) 325 MG/TAB TABLET PO SCH ×2 (08:29→17:01)
[2021-11-06] MEDS: risperiDONE 1 MG TABLET PO SCH ×3 (08:30→17:01)
[2021-11-06] MEDS: LORAZEPAM INJ 2 MG/ML VIAL IV PRN ×2 (11:28→15:14)
[2021-11-06 11:29] VITALS: BP 120/82
[2021-11-06 16:00] VITALS: BP 136/82
[2021-11-06] MEDS: OLANZAPINE ZYDIS 5 MG TAB.RAPDIS PO SCH (17:00)
[2021-11-07 07:24] LABS: BASOPHILS # (AUTO) 0.1 K/uL (0.0-0.2); BASOPHILS % (AUTO) 0.9 % (0.0-2.0); EOSINOPHILS % (AUTO) 11.5 % (0.0-6.0); LYMPHOCYTES % (AUTO) 18.4 % (20.0-44.0); MEAN CORPUSCULAR HGB CONC 36 g/dl (31.0-36.0); MEAN CORPUSCULAR VOLUME 92 fL (80-96); MONOCYTES # (AUTO) 0.8 K/uL (0.1-1.30); NEUTROPHILS # (AUTO) 3.1 K/uL (1.8-8.9); NEUTROPHILS % (AUTO) 55.2 % (43.0-81.0); PLATELET COUNT (AUTO) 168 K/uL (150-450); RED BLOOD CELL COUNT(AUTO) 2.15 MIL/uL (4.5-6.0); WHITE BLOOD COUNT (AUTO) 5.7 K/uL (4.3-11.0)
[2021-11-07 07:26] LABS: HEMATOCRIT 20 % (39-51)
[2021-11-07 07:56] LABS: CALCIUM, SERUM 8.3 mg/dL (8.5-10.1); CREATININE 6.6 mg/dL (0.6-1.3); MAGNESIUM 2.2 mg/dL (1.8-2.4); POTASSIUM 5.3 mmol/L (3.5-5.1)
[2021-11-07 08:00] VITALS: BP 145/72
[2021-11-07] MEDS: DIVALPROEX SODIUM 125 MG CAP.SPRINK PO SCH (09:23)
[2021-11-07] MEDS: LEVETIRACETAM (250 MG) 250 MG TABLET PO SCH ×2 (09:23→17:15)
[2021-11-07] MEDS: risperiDONE 1 MG TABLET PO SCH ×3 (09:23→17:14)
[2021-11-07] MEDS: PHENYTOIN EXTENDED RELEASE 100 MG CAPSULE PO SCH ×3 (09:24→17:15)
[2021-11-07] MEDS: FERROUS SULFATE (325 MG) 325 MG/TAB TABLET PO SCH ×2 (09:24→17:14)
[2021-11-07] MEDS: PANTOPRAZOLE 40 MG TABLET.DR PO SCH (09:24)
[2021-11-07] MEDS: SEVELAMER CARBONATE 800 MG TABLET PO SCH ×3 (09:27→17:14)
[2021-11-07 12:00] VITALS: BP 146/74
[2021-11-07] MEDS: OLANZAPINE ZYDIS 5 MG TAB.RAPDIS PO SCH (17:15)
[2021-11-07 19:03] VITALS: BP 130/76
== END 2021-11-07 19:35 | DRG 640 ==
LOC: ER 11:00 → TELE 14:39
PROVIDERS: ADMIT Student in an Organized Health Care Education/Training Program; ATTEND Nurse Practitioner Family
PROC: 5A1D70Z Performance of Urinary Filtration, Intermittent, Less than 6 Hours Per Day (ICD-10-PCS; principal; 2021-11-04)
PROC: 30233N1 Transfusion of Nonautologous Red Blood Cells into Peripheral Vein, Percutaneous Approach (ICD-10-PCS; 2021-11-04)
DX: E87.5 Hyperkalemia (principal); G93.41 Metabolic encephalopathy; N18.6 End stage renal disease; E44.0 Moderate protein-calorie malnutrition; D68.69 Other thrombophilia; G40.909 Epilepsy, unspecified, not intractable, without status epilepticus; Z99.2 Dependence on renal dialysis; D63.8 Anemia in other chronic diseases classified elsewhere; E11.22 Type 2 diabetes mellitus with diabetic chronic kidney disease; F03.90 Unspecified dementia, unspecified severity, without behavioral disturbance, psychotic disturbance, mood disturbance, and anxiety; F25.9 Schizoaffective disorder, unspecified; J44.9 Chronic obstructive pulmonary disease, unspecified; Z86.711 Personal history of pulmonary embolism; Z86.718 Personal history of other venous thrombosis and embolism; Z87.891 Personal history of nicotine dependence; F31.9 Bipolar disorder, unspecified; Z68.25 Body mass index [BMI] 25.0-25.9, adult; F29 Unspecified psychosis not due to a substance or known physiological condition; Z20.822 Contact with and (suspected) exposure to COVID-19; M19.90 Unspecified osteoarthritis, unspecified site
CPT/HCPCS: 36415; 80048-TC; 80076-TC; 80164-TC; 80185-TC; 82962-TC; 83735-TC; 84100-TC; 85025-TC; 85730-TC; 86850-TC; 87081-TC; 90935-TC; C9113; C9803; G0378; J0610; J1200; J1815; J2060; J3490; J7030; J7050; P9016

== ENCOUNTER 2021-11-18 13:27 | Inpatient (IN) | payer MEDICARE, OTHER ==
[~2021-11-18] VITALS: Ht 182.9 cm; Wt 81.6 kg
[~2021-11-18 13:27] MED LIST changes: -ASCO-495 PO; -BENZ1TAB7 PO; -DIPH50VI14 IM; -FOLI0.8T2 PO; -MAGN400O6 PO; -OLAN10VI IM
--- NOTE | 2021-11-18 14:01 | NUR ---
COVID SPECIMEN COLLECTED
--- NOTE | 2021-11-18 14:02 | NUR ---
COVID SWAB SENT TO LAB
[2021-11-18] MEDS ORDERED: BENZ1TAB7 PO (14:10)
[2021-11-18 14:17] LABS: BASOPHILS # (AUTO) 0.1 K/uL (0.0-0.2); BASOPHILS % (AUTO) 1.4 % (0.0-2.0); EOSINOPHILS % (AUTO) 10.5 % (0.0-6.0); LYMPHOCYTES # (AUTO) 1.4 K/uL (0.8-4.8); LYMPHOCYTES % (AUTO) 25.1 % (20.0-44.0); MEAN CORPUSCULAR HGB CONC 35 g/dl (31.0-36.0); MEAN CORPUSCULAR VOLUME 97 fL (80-96); MONOCYTES # (AUTO) 0.7 K/uL (0.1-1.30); MONOCYTES % (AUTO) 12.5 % (2.0-12.0); NEUTROPHILS # (AUTO) 2.9 K/uL (1.8-8.9); NEUTROPHILS % (AUTO) 50.5 % (43.0-81.0); PLATELET COUNT (AUTO) 202 K/uL (150-450); WHITE BLOOD COUNT (AUTO) 5.7 K/uL (4.3-11.0)
[2021-11-18 14:18] LABS: RED BLOOD CELL COUNT(AUTO) 1.78 MIL/uL (4.5-6.0)
[2021-11-18 14:19] LABS: HEMATOCRIT 17 % (39-51)
--- NOTE | 2021-11-18 14:24 | NUR ---
MARBLE HELPER AT BEDSIDE
[2021-11-18] MEDS ORDERED: BISACODYL SUPP (10 MG) 10 MG/SUPP.RECT SUPP.RECT RC PRN (14:30)
[2021-11-18 14:33] LABS: CALCIUM, SERUM 8.6 mg/dL (8.5-10.1); CREATININE 4.2 mg/dL (0.6-1.3); POTASSIUM 4.3 mmol/L (3.5-5.1)
[2021-11-18 14:42] LABS: ALBUMIN 2.9 g/dL (3.4-5.0); BILIRUBIN,DIRECT 0.1 mg/dL (0.0-0.2); BILIRUBIN,TOTAL 0.3 mg/dL (0.2-1.0); TOTAL PROTEIN, SERUM 6.4 g/dL (6.4-8.2)
[2021-11-18] MEDS ORDERED: Z GUARD REMEDY 4 OZ OINT TP PRN (15:00)
[2021-11-18] MEDS ORDERED: ONDANSETRON HCL/PF 4 MG/2 ML VIAL IVP PRN (15:00)
[2021-11-18] MEDS ORDERED: TEMAZEPAM 15 MG CAPSULE PO PRN (15:00)
[2021-11-18] MEDS ORDERED: ACETAMINOPHEN 325 MG TABLET PO PRN (15:00)
[2021-11-18] MEDS ORDERED: MAGNESIUM HYDROXIDE 30 ML UDC PO PRN (15:00)
[2021-11-18] MEDS ORDERED: MAG HYDROX/AL HYDROX/SIMETH 30 ML UDC PO PRN (15:00)
--- NOTE | 2021-11-18 15:37 | NUR ---
CALLED [facility] FOR PT ([phone]). GARTH CAMPBELL NOT AVAILABLE AT THIS TIME; CARDING MACHINE FEEDER ROLANDO WILL CALL BACK TO PROVIDE CONSENT ON BEHALF OF PT.
[2021-11-18] MEDS: PROSOURCE / PROSTAT (PYXIS) 30 ML UDC PO SCH (17:00)
[2021-11-18 17:30] VITALS: BP 148/67
--- NOTE | 2021-11-18 17:30 | NUR ---
BLOOD PRODUCT OBTAINED FROM LAB; VS TAKEN AND RECORDED. BLOOD TRANSFUSION INITIATED. WILL MONITOR FOR TRANSFUSION REACTION.
--- NOTE | 2021-11-18 17:41 | NUR ---
REPORT GIVEN TO HUMBERTO MONREAL. AWAITNG TRANSPORT TO FLOOR.
[2021-11-18 17:45] VITALS: BP 150/68
--- NOTE | 2021-11-18 17:45 | NUR ---
15MINS INTO BT, VS TAKEN AND RECORDED. NO TRANSFUSION REACTION. PT IS ALERT AND VERBALLY RESPONSIVE, NOT IN ACUTE DISTRESS. WILL INCREASE TRANSFUSION RATE TOLERATED BY PT AND MONITOR ACCORDINGLY.
[2021-11-18] MEDS: OLANZAPINE ZYDIS 5 MG TAB.RAPDIS PO SCH (18:00)
[2021-11-18] MEDS: LEVETIRACETAM (250 MG) 250 MG TABLET PO SCH (18:00)
[2021-11-18] MEDS: PHENYTOIN EXTENDED RELEASE 100 MG CAPSULE PO SCH (18:00)
[2021-11-18] MEDS: FERROUS SULFATE (325 MG) 325 MG/TAB TABLET PO SCH (18:00)
[2021-11-18] MEDS: risperiDONE 1 MG TABLET PO SCH (18:00)
[2021-11-18] MEDS: SEVELAMER CARBONATE 800 MG TABLET PO SCH (18:00)
[2021-11-18 18:08] LABS: PHENYTOIN (DILANTIN) 5.4 ug/ml (10.0-20.0)
[2021-11-18] MEDS ORDERED: LEVETIRACETAM (250 MG) 250 MG TABLET PO ONE (18:17)
[2021-11-18] MEDS ORDERED: OLANZAPINE 5 MG TABLET ONE (18:17)
[2021-11-18] MEDS ORDERED: FERROUS SULFATE (325 MG) 325 MG/TAB TABLET ONE (18:17)
[2021-11-18] MEDS ORDERED: risperiDONE 1 MG TABLET ONE (18:18)
[2021-11-18] MEDS ORDERED: PHENYTOIN EXTENDED RELEASE 100 MG CAPSULE PO ONE (18:18)
--- NOTE | 2021-11-18 18:46 | NUR ---
TRANSFERRED TO BED 310-1
--- NOTE | 2021-11-18 18:47 | NUR ---
PT TRANSFERRED TO 310 VIA [facility] ACLS PROTOCOL. WARM HANDOFF GIVEN TO RAH PAUL
[2021-11-18 19:00] VITALS: BP 160/78
[2021-11-18 20:00] VITALS: BP 124/79
--- NOTE | 2021-11-18 20:15 | NUR ---
RECEIVED PATIENT IN BED, ALERT/ORIENTED X2, ROOM AIR, NO COMPLAIN OF PAIN, ADMITTED FROM ED, ARRIVED IN UNIT RECEIVING BLOOD TRANSFUSION, STARTED TRANSFUSION IN ED. BEGINS AT 1730 PER PAPER RECORD AND ENDED AT 2004. NO BLOOD TRANSFUSION REACTION, VS STABLE, PATIENT REMAINED ALERT AND ALERT, NO DISTRESS. KEPT SAFE, WILL CONTINUE TO MONITOR.
[2021-11-18] MEDS: PANTOPRAZOLE 40 MG VIAL IV SCH (20:59)
[2021-11-18] MEDS: DIVALPROEX SODIUM 125 MG CAP.SPRINK PO SCH (20:59)
[2021-11-18 23:19] LABS: BASOPHILS % (MANUAL) 0 % (0.0-2.0); EOSINOPHILS % (MANUAL) 6 % (0-4); LYMPHOCYTES % (MANUAL) 29 % (16-48); MONOCYTES % (MANUAL) 10 % (0-11.0); NEUTROPHILS % (MANUAL) 55 (42-76)
[2021-11-19] VITALS (14 sets, daily range): BP systolic 125–149; BP diastolic 55–91
[2021-11-19 00:45] LABS: BASOPHILS # (AUTO) 0.1 K/uL (0.0-0.2); BASOPHILS % (AUTO) 1.2 % (0.0-2.0); EOSINOPHILS % (AUTO) 11.3 % (0.0-6.0); LYMPHOCYTES # (AUTO) 1.8 K/uL (0.8-4.8); LYMPHOCYTES % (AUTO) 29.8 % (20.0-44.0); MEAN CORPUSCULAR HGB CONC 35 g/dl (31.0-36.0); MEAN CORPUSCULAR VOLUME 94 fL (80-96); MONOCYTES # (AUTO) 0.7 K/uL (0.1-1.30); MONOCYTES % (AUTO) 10.8 % (2.0-12.0); NEUTROPHILS # (AUTO) 2.9 K/uL (1.8-8.9); NEUTROPHILS % (AUTO) 46.9 % (43.0-81.0); PLATELET COUNT (AUTO) 203 K/uL (150-450); WHITE BLOOD COUNT (AUTO) 6.2 K/uL (4.3-11.0)
[2021-11-19 00:47] LABS: RED BLOOD CELL COUNT(AUTO) 1.95 MIL/uL (4.5-6.0)
[2021-11-19 00:49] LABS: HEMATOCRIT 18 % (39-51); HEMOGLOBIN 6.4 g/dL (13.5-17.5)
--- NOTE | 2021-11-19 01:00 | NUR ---
NOTIFIED HAYLEE CAMPOS OF H/H 6.06/26, NO NEW ORDER, WAIT FOR AM LABS. VS STABLE, NO ACTIVE BLEEDING, REMAINED ALERT AND AWAKE.
[2021-11-19 02:31] LABS: BASOPHILS % (MANUAL) 0 % (0.0-2.0); EOSINOPHILS % (MANUAL) 9 % (0-4); LYMPHOCYTES % (MANUAL) 32 % (16-48); MONOCYTES % (MANUAL) 8 % (0-11.0); NEUTROPHILS % (MANUAL) 51 (42-76)
--- NOTE | 2021-11-19 06:03 | NUR ---
S/P transfusion PRBC 1 unit, alert/oriented x2, hx of bipolar and schizoaffective disorder. Talking to self, agitated at times, yelling directed to imaginary person. ESRD on HD, left IJ HD cath, secured with dressing, oliguric. Generalized weakness, assisted to toilet, unsteady gait. CBC, BMP in AM, monitor H/H, blood transfusion if hgb < 7.0, fall precaution.
[2021-11-19 06:19] LABS: BASOPHILS # (AUTO) 0.1 K/uL (0.0-0.2); BASOPHILS % (AUTO) 0.7 % (0.0-2.0); EOSINOPHILS % (AUTO) 7.7 % (0.0-6.0); LYMPHOCYTES # (AUTO) 1.4 K/uL (0.8-4.8); LYMPHOCYTES % (AUTO) 15.1 % (20.0-44.0); MEAN CORPUSCULAR HGB CONC 35 g/dl (31.0-36.0); MEAN CORPUSCULAR VOLUME 95 fL (80-96); MONOCYTES # (AUTO) 1.1 K/uL (0.1-1.30); MONOCYTES % (AUTO) 12.1 % (2.0-12.0); NEUTROPHILS % (AUTO) 64.4 % (43.0-81.0); PLATELET COUNT (AUTO) 217 K/uL (150-450); RED BLOOD CELL COUNT(AUTO) 2.01 MIL/uL (4.5-6.0); WHITE BLOOD COUNT (AUTO) 9.2 K/uL (4.3-11.0)
[2021-11-19 06:40] LABS: CALCIUM, SERUM 8.5 mg/dL (8.5-10.1); CREATININE 5.6 mg/dL (0.6-1.3); MAGNESIUM 2.1 mg/dL (1.8-2.4); PHOSPHORUS 5.1 mg/dL (2.5-4.9); POTASSIUM 4.7 mmol/L (3.5-5.1)
--- NOTE | 2021-11-19 07:30 | NUR ---
FOOT TENDER OPENING NOTES: RECEIVED PATIENT IN BED AWAKE, ALERT AND ORIENTED X 2 AND ABLE TO VERBALIZED NEEDS. NO SOB OR CARDIAC DISTRESS NOTED, AFEBRILE. IV ACCESS ON R HAND G#22 PATENT, INTACT AND SALINE LOCKED, LCW HD CATH INTACT. WEAK AND PALE IN APPEARANCE. WILL MONITOR PT ACCORDINGLY. SAFETY PRECAUTIONS MAINTAINED: BED LOCKED AND IN LOWEST POSITION,SIDE RAILS UP X 2 AND CALL LIGHT IN EASY REACH FOR HELP/ASSISTANCE. KEPT RESTED AND COMFORTABLE.
[2021-11-19 07:55] LABS: HEMATOCRIT 19 % (39-51); HEMOGLOBIN 6.7 g/dL (13.5-17.5)
[2021-11-19] MEDS: SEVELAMER CARBONATE 800 MG TABLET PO SCH ×3 (07:56→17:07)
[2021-11-19] MEDS: PANTOPRAZOLE 40 MG VIAL IV SCH ×2 (08:47→21:57)
[2021-11-19] MEDS: PHENYTOIN EXTENDED RELEASE 100 MG CAPSULE PO SCH ×3 (08:47→16:57)
[2021-11-19] MEDS: LEVETIRACETAM (250 MG) 250 MG TABLET PO SCH ×2 (08:48→16:57)
[2021-11-19] MEDS: FERROUS SULFATE (325 MG) 325 MG/TAB TABLET PO SCH ×2 (08:48→16:57)
[2021-11-19] MEDS: BENZTROPINE MESYLATE (1 MG) 1 MG TABLET PO SCH (08:48)
[2021-11-19] MEDS: DIVALPROEX SODIUM 125 MG CAP.SPRINK PO SCH ×2 (08:48→21:57)
[2021-11-19] MEDS: PROSOURCE / PROSTAT (PYXIS) 30 ML UDC PO SCH ×3 (08:48→16:57)
[2021-11-19] MEDS: risperiDONE 1 MG TABLET PO SCH ×3 (08:48→16:57)
--- NOTE | 2021-11-19 08:50 | NUR ---
RN NOTES: RECEIVED A CALL FROM LAB, CRITICAL LAB VALUE HGB 6.7 HCT 19. RELAYED LAB RESULT TO DR DUVALL, AND ORDERED 1 PRBC BLOOD TRANSFUSION. ORDERS NOTED AND CARRIED OUT.
--- NOTE | 2021-11-19 09:59 | NUR ---
RN NOTES: NO ACTUAL BLOOD TRANSFUSION CONSENT SEEN ON PT CHART. CALLED [facility] SPOKE TO MS MARSHALL- THEY ARE AWARE PT HAD BLOOD TRANSFUSION YESTERDAY IN EMERGENCY ROOM AND 2 DOCTORS SIGNED CONSENT IN BEHALF OF THE PT. PER MS MARSHALL THE [facility] STILL PENDING AND WAITING FOR THE COUNTY'S DECISION. INFORMED DR DUVALL ABOUT THE SITUATION, STILL WAITING.
--- NOTE | 2021-11-19 10:15 | NUR ---
RN NOTES: BLOOD TRANSFUSION CONSENT SIGNED BY DR DUVALL AND DR IRVIN.
--- NOTE | 2021-11-19 10:45 | NUR ---
RN NOTES: STARTED THE BLOOD TRANSFUSION. PATIENT STABLE AND IV ACCESS LINE PATENT. PRE BLOOD TRANSFUSION VS WNL.
--- NOTE | 2021-11-19 11:00 | NUR ---
RN NOTES: STAYED WITH THE PATIENT FOR 15 MINUTES, VS WNL, NO BLOOD TRANSFUSION ALLERGIC REACTION NOTED. PATIENT CALM AT THIS TIME. NO SOB OR CARDIAC DISTRESS NOTED.
--- NOTE | 2021-11-19 11:30 | NUR ---
RN NOTES: PATIENT ONGOING BLOOD TRANSFUSION, VS WNL. NO SOB OR CARDIAC DISTRESS NOTED. PATIENT HAS EPISODES OF YELLING PER PATIENT HE IS HEARING VOICES. REASSURED PATIENT HE IS ALONE AND STAFFS WILL HELP HIM IN CASE HE NEED SOMETHING.
--- NOTE | 2021-11-19 12:30 | NUR ---
RN NOTES: PATIENT EATING LUNCH, VS WNL. NO SOB OR CARDIAC DISTRESS NOTED. PATIENT CALM.
--- NOTE | 2021-11-19 14:20 | NUR ---
MANAGER COMPLETIONS NOTES: DC PATIENT HOME WITH . PATIENT ALERT AND ORIENTED X 4 AND ABLE TO VERBALIZED NEEDS. PATIENT DENIES ANY PAIN AT THIS TIME, NO SOB OR CARDIAC DISTRESS NOTED. DISCHARGE PACKET GIVEN TO PATIENT AND AT BED SIDE. VERBALIZED UNDERSTANDING. FOLLOW UP WITH PCP IN A WEEK AND IN CASE OF EMERGENCY CALL 911 OR GO TO [facility]AREST [facility]. ALL BELONGINGS CARRIED WITH THE RESIDENT AND SIGNED THE FORM. NEON TECHNICIAN GIVEN TO US TALI. IV ACCESS REMOVED AND IDENTIFICATION BAND REMOVED. WAGNER STEELEED PT IN THE LOBBY. PATIENT LEFT THE UNIT STABLE. Addendum: 11/19/21 at 1454 by SHIRA NEAL RN ERROR WRONG PATIENT
--- NOTE | 2021-11-19 14:33 | NUR ---
RN NOTES: S/P BLOOD TRANSFUSION. PATIENT STABLE. NO ALLERGIC REACTION NOTED. VS REMAINED STABLE ALL THROUGHOUT. FLUSHED THE IV ACCESS WITH NS. OFFERED FOOD AND MILK. PATIENT CALM THIS TIME. DISPOSED BLOOD BAG IN THE RED BIN.
[2021-11-19] MEDS: OLANZAPINE ZYDIS 5 MG TAB.RAPDIS PO SCH (16:57)
--- NOTE | 2021-11-19 19:30 | NUR ---
COMPENSATOR OPENING NOTE RECEIVED PATIENT IN BED WITH EYES CLOSED. A/OX2. NO S/S OF APPARENT DISTRESS ON ROOM AIR. NO C/O PAIN AT THIS TIME. TELE MONITOR READING SR WITH 76 BPM. NO FLUIDS RUNNING AT THIS TIME WITH R HAND IV ACCESS AND LCW HD CATH NOTED IN PLACE. RE-ORIENTED WITH THE USE OF CALL LIGHT. SAFETY IN PLACE. WILL CONTINUE WITH PATIENT'S PLAN OF CARE.
--- NOTE | 2021-11-19 20:13 | NUR ---
MONITOR ON STANDBY. PATIENT REFUSING TELE BOX AT THIS TIME. WILL PUT IT BACK ONCE PATIENT COMPLY.
--- NOTE | 2021-11-20 00:16 | NUR ---
CALENDER ROLL PRESS OPERATOR NOTE patient getting out of bed and responding to internal stimuli, screaming (pt. baseline) given PRN restoril as ordered per clinical indication.
--- NOTE | 2021-11-20 05:45 | NUR ---
refused lab draw.
--- NOTE | 2021-11-20 07:13 | NUR ---
FALSEWORK BUILDER CLOSING NOTE ALL NEEDS ATTENDED. REPORT GIVEN TO RAH SESAY FOR CONTINUITY OF CARE.
--- NOTE | 2021-11-20 07:50 | NUR ---
DETENTION OFFICER OPENING NOTES RECEIVED PATIENT AWAKE IN BED IN NO ACUTE SIGNS OF DISTRESS. A/OX2-3, ABLE TO MAKE NEEDS KNOWN, DENIES PAIN OR ANY DISCOMFORTS AT THIS TIME. ON ROOM AIR, BREATHING EVEN AND UNLABORED. TELE-MONITOR READS V-PACING WITH HR OF 70 BPM AT THIS TIME, NO C/O CARDIAC DISTRESS VOICED AT THIS TIME. PT WITH LCW HD CATH IN PLACE WITH DRESSING C/D/I. IV ACCESS ON RIGHT HAND #22G INTACT AND PATENT. SAFETY PRECAUTIONS MAINTAINED: BED LOCKED IN LOW POSITION, SIDE RAILX3, CALL LIGHT WITHIN EASY REACH, BED ALARM ON. WILL CONTINUE TO MONITOR PT. Addendum: 11/20/21 at 1437 by NELIDA SHEEHAN RN CORRECTION: PT'S TELE-MONITOR SHOWS NSR NOT V-PACING. HR ON THE 70'S
[2021-11-20] MEDS: DIVALPROEX SODIUM 125 MG CAP.SPRINK PO SCH ×2 (08:23→20:51)
[2021-11-20] MEDS: risperiDONE 1 MG TABLET PO SCH ×3 (08:23→16:49)
[2021-11-20] MEDS: PANTOPRAZOLE 40 MG VIAL IV SCH ×2 (08:23→20:51)
[2021-11-20] MEDS: BENZTROPINE MESYLATE (1 MG) 1 MG TABLET PO SCH (08:23)
[2021-11-20] MEDS: LEVETIRACETAM (250 MG) 250 MG TABLET PO SCH ×2 (08:23→16:49)
[2021-11-20] MEDS: PHENYTOIN EXTENDED RELEASE 100 MG CAPSULE PO SCH ×3 (08:24→16:49)
[2021-11-20] MEDS: SEVELAMER CARBONATE 800 MG TABLET PO SCH ×3 (08:27→17:18)
[2021-11-20] MEDS: FERROUS SULFATE (325 MG) 325 MG/TAB TABLET PO SCH ×2 (08:28→16:49)
[2021-11-20] MEDS: PROSOURCE / PROSTAT (PYXIS) 30 ML UDC PO SCH ×3 (08:28→16:50)
[2021-11-20 09:45] LABS: BASOPHILS # (AUTO) 0.1 K/uL (0.0-0.2); BASOPHILS % (AUTO) 1.2 % (0.0-2.0); EOSINOPHILS % (AUTO) 12.3 % (0.0-6.0); HEMATOCRIT 21 % (39-51); HEMOGLOBIN 7.3 g/dL (13.5-17.5); LYMPHOCYTES # (AUTO) 1.3 K/uL (0.8-4.8); LYMPHOCYTES % (AUTO) 21.3 % (20.0-44.0); MEAN CORPUSCULAR HGB CONC 34 g/dl (31.0-36.0); MEAN CORPUSCULAR VOLUME 95 fL (80-96); MONOCYTES # (AUTO) 0.6 K/uL (0.1-1.30); MONOCYTES % (AUTO) 10.4 % (2.0-12.0); NEUTROPHILS # (AUTO) 3.2 K/uL (1.8-8.9); NEUTROPHILS % (AUTO) 54.8 % (43.0-81.0); PLATELET COUNT (AUTO) 200 K/uL (150-450); RED BLOOD CELL COUNT(AUTO) 2.23 MIL/uL (4.5-6.0); WHITE BLOOD COUNT (AUTO) 5.9 K/uL (4.3-11.0)
[2021-11-20 10:05] VITALS: BP 161/92
[2021-11-20 10:13] LABS: CALCIUM, SERUM 8.7 mg/dL (8.5-10.1); POTASSIUM 5.3 mmol/L (3.5-5.1)
[2021-11-20 10:17] LABS: CREATININE 7.6 mg/dL (0.6-1.3)
--- NOTE | 2021-11-20 10:37 | NUR ---
RN NOTES RECEIVED CALL FROM QUALITY ASSURANCE ENGINEER TANA RONQUILLO THAT PT HAS CRITICAL HIGH CREATININE 7.6. DR DUVALL MADE AWARE AND ORDERED FOR WOUND NEPHRO CONSULT FOR PT.
[2021-11-20] MEDS ORDERED: LORAZEPAM INJ 2 MG/ML VIAL IV ONE (11:00)
--- NOTE | 2021-11-20 11:02 | NUR ---
RN NOTES PT SCREAMING AND RESTLESS, DR DUVALL ORDERED ATIVAN 1MG/0.5 ML IV AND WAS ADMINISTERED AT 1054. WILL CONTINUE TO MONITOR PT.
[2021-11-20 13:22] VITALS: BP 170/93
[2021-11-20] MEDS: OLANZAPINE ZYDIS 5 MG TAB.RAPDIS PO SCH (16:50)
[2021-11-20 17:57] VITALS: BP 173/96
--- NOTE | 2021-11-20 18:46 | NUR ---
MEDICAL RECEPTIONIST ASSISTANT CLOSING NOTES PATIENT IN BED AWAKE AND WATCHING TV AT THIS TIME WITH ONGOING HEMODIALYSIS VIA LCW PERMA CATH. PT IS A/OX2-3. ABLE TO MAKE NEEDS KNOWN. RESTLESS, SCREAMING ON AND OFF, NEEDS ATTENDED WELL AND EMOTIONAL SUPPORT GIVEN. ON ROOM AIR, BREATHING EVEN AND UNLABORED. TELE-MONITOR SHOWS NSR WITH HR ON THE 70-80'S DURING THE DAY, PT REFUSING TO PUT TELE BOX AT THIS TIME DESPITE EXPLAINING BENEFITS OF HAVING IT ATTACHED. NO C/O CARDIAC DISTRESS VOICED DURING SHIFT. IV ACCESS ON RIGHT HAND #22G INTACT AND PATENT. ALL NEEDS AND CARE ATTENDED WELL. SAFETY PRECAUTIONS MAINTAINED: BED LOCKED IN LOW POSITION, SIDE RAIL UP X3, CALL LIGHT WITHIN EASY REACH, BED ALARM ON. WILL ENDORSE STEVEN TO BARTACKER NURSE.
--- NOTE | 2021-11-20 19:06 | NUR ---
RN NOTES HEMODIALYSIS TERMINATED EARLY BY HD RN ANDRE BECAUSE PT WAS VERY AGITATED, SHOUTING AND VERBALLY ABUSIVE. DR DUVALL MADE AWARE WITH ORDER TO GIVE HALDOL 5MG IM X1. WILL ENDORSE TO INSPECTOR AND HAND PACKAGER
[2021-11-20] MEDS ORDERED: HALOPERIDOL LACTATE INJ 5 MG/ML VIAL IM ONE (19:30)
[2021-11-20 20:00] VITALS: BP 150/87
--- NOTE | 2021-11-20 20:00 | NUR ---
RN NOTE: PATIENT IN BED WITH HOB ELEVATED, MOIST ORAL MUCOSA, DECLINES PAIN OR DISCOMFORT, AGITATED AND REFUSING MEDICATIONS AT THIS TIME, YELLING AND SCREAMING, APPROACHED IN A CALM MANNER EXPLAINED RISKS VS BENEFITS OF HALDOL AND REFUSED AT THIS TIME. IV ON RIGHT HAND G.22. HD CATHETER IN LEFT UPPER CHEST WITH A CLEAN AND DRY DRESSING. CONTINUE TO NOTE BILATERAL LOWER LEG SCABS. WILL CONTINUE TO MONITOR. FALL PRECAUTIONS MAINTAINED. SAFETY PRECAUTIONS MAINTAINED. ALLOWED PATIENT TO VERBALIZED FEELINGS. CALL LIGHT IN REACH. ASSISTED WITH TV SPORT CHANNEL REQUESTED.
--- NOTE | 2021-11-20 22:45 | NUR ---
PATIENT IN BED WITH HOB ELEVATED. BILATERAL HALF SIDE RAIL UP AND CALL LIGHT IN REACH. AT THIS TIME RESIDENT IS ASLEEP. MOIST ORAL MUCOSA. UNLABORED BREATHING. HALDOL GIVEN ORDERED AND EFFECTIVE. MEDICATIONS GIVEN ORDERED. HD CATHETER IN LEFT UPPER CHEST WITH CLEAN DRESSING. IV ON RIGHT HAND SALINE LOCKED. WITH NO S/S OF COMPLICATIONS. FALL AND SAFETY PRECAUTIONS MAINTAINED. HOB ELEVATED. HALF SIDE RAILS UP X2. CALL LIGHT IN REACH. ENDORSED TO INCOMING NURSE.
--- NOTE | 2021-11-20 22:56 | NUR ---
RN NOTE REPORT RECEIVED FROM RAH DAVID FOR STEVEN.
[2021-11-21] VITALS: BP 150/87
--- NOTE | 2021-11-21 00:07 | NUR ---
FACILITY PRACTICE SPECIALIST OPENING NOTE PT RECEIVED IN BED, ASLEEP. WAS ENDORSED TO ME THAT PT WAS ADMINISTERED HALDOL IM; BEFORE ADMINISTRATION, PT WAS RESTLESS AND YELLING OUT. PT ON RA, NO S/S OF RESP DISTRESS, NO SOB OR COUGH, NON-LABORED AND EQUAL BREATHING; APPEARS COMFORTABLE OVERALL. PT REFUSED TO BE ATTACHED TO EXTERNAL MONITOR. IV ACCESS ON RIGHT HAND 22G, INTACT AND PATENT, FLUSHES EASILY WITH NO RESISTANCE; NO MEDS/FLUIDS RUNNING THROUGH IT. HD CATH NOTED TO BE ON [facility], DRESSING IS C/D/I. PT NOTED TO BE AMBULATORY WITH STOOPED POSTURE. BED IN LOWEST POSITION, CALL LIGHT WITHIN REACH, SIDE RAILS UP X2. WILL CONTINUE TO MONITOR THROUGHOUT THE NIGHT.
--- NOTE | 2021-11-21 00:32 | NUR ---
RN NOTE PT REFUSED TO HAVE 0000 VS TAKEN.
[2021-11-21 04:00] VITALS: BP 150/87
--- NOTE | 2021-11-21 05:23 | NUR ---
RN NOTE PT BEING RESTLESS AND UNCOOPERATIVE; REFUSED TO HAVE 0400 VS TAKEN.
--- NOTE | 2021-11-21 07:26 | NUR ---
RN MANAGED CARE OPENING NOTE RECEIVED PT AWAKE IN BED. A/O X2-3 WITH EPISODES OF CONFUSION. REORIENTED PT NEEDED. ON RA, TOLERATING WELL. NO SOB NOTED. NOT IN ANY SIGN OF RESPIRATORY DISTRESS. PT REFUSED TO HAVE THE TELE DRAFTER ELECTRICAL ON HIM. EXPLAINED THE IMPORTANCE OF HAVING THE TELE DRAFTER ELECTRICAL ON, STILL STRONGLY REFUSED. TELE BOX IS GIVEN TO CONG, IN THE TELE STATION. IV ACCESS IN R HAND G#22 INTACT AND PATENT. SAFETY MEASURES IN PLACE: BED IN LOWEST AND LOCKED POSITION, BED ALARM ON, SIDE RAILS UPX2, AND CALL LIGHT WITHIN REACH. WILL CONTINUE TO MONITOR PT.
--- NOTE | 2021-11-21 07:31 | NUR ---
ALARM MECHANISM ADJUSTER CLOSING NOTE PT REMAINS IN BED, AWAKE, RESTLESS AND YELLING OUT. CONTINUES TO BE ON RA, NO S/S OF RESP DISTRESS, NO SOB OR COUGH, NON-LABORED AND EQUAL BREATHING; APPEARS COMFORTABLE OVERALL. PT REFUSED TO BE ATTACHED TO EXTERNAL MONITOR AND REFUSED 0000 AND 0400 VITAL SIGNS. IV ACCESS ON RIGHT HAND 22G, INTACT AND PATENT, FLUSHES EASILY WITH NO RESISTANCE; NO MEDS/FLUIDS RUNNING THROUGH IT. HD CATH NOTED TO BE ON LEFT SUBCLAVIAN, DRESSING IS C/D/I. BED IN LOWEST POSITION, CALL LIGHT WITHIN REACH, SIDE RAILS UP X2. WILL ENDORSE TO DAYSHIFT NURSE TO CONTINUE CARE.
[2021-11-21] MEDS: SEVELAMER CARBONATE 800 MG TABLET PO SCH ×3 (08:16→17:09)
[2021-11-21] MEDS: LEVETIRACETAM (250 MG) 250 MG TABLET PO SCH ×2 (08:37→17:09)
[2021-11-21] MEDS: risperiDONE 1 MG TABLET PO SCH ×3 (08:37→17:09)
[2021-11-21] MEDS: BENZTROPINE MESYLATE (1 MG) 1 MG TABLET PO SCH (08:37)
[2021-11-21] MEDS: PANTOPRAZOLE 40 MG VIAL IV SCH ×2 (08:37→21:00)
[2021-11-21] MEDS: PHENYTOIN EXTENDED RELEASE 100 MG CAPSULE PO SCH ×3 (08:37→17:09)
[2021-11-21] MEDS: FERROUS SULFATE (325 MG) 325 MG/TAB TABLET PO SCH ×2 (08:37→17:11)
[2021-11-21] MEDS: DIVALPROEX SODIUM 125 MG CAP.SPRINK PO SCH ×2 (08:37→21:00)
[2021-11-21] MEDS: PROSOURCE / PROSTAT (PYXIS) 30 ML UDC PO SCH ×3 (08:40→17:00)
[2021-11-21 09:07] LABS: BASOPHILS # (AUTO) 0.1 K/uL (0.0-0.2); BASOPHILS % (AUTO) 1.1 % (0.0-2.0); EOSINOPHILS % (AUTO) 9.8 % (0.0-6.0); HEMOGLOBIN 7.2 g/dL (13.5-17.5); LYMPHOCYTES # (AUTO) 1.3 K/uL (0.8-4.8); LYMPHOCYTES % (AUTO) 22.8 % (20.0-44.0); MEAN CORPUSCULAR HGB CONC 35 g/dl (31.0-36.0); MEAN CORPUSCULAR VOLUME 94 fL (80-96); MONOCYTES # (AUTO) 0.6 K/uL (0.1-1.30); MONOCYTES % (AUTO) 10.3 % (2.0-12.0); NEUTROPHILS # (AUTO) 3.1 K/uL (1.8-8.9); PLATELET COUNT (AUTO) 195 K/uL (150-450); RED BLOOD CELL COUNT(AUTO) 2.16 MIL/uL (4.5-6.0); WHITE BLOOD COUNT (AUTO) 5.6 K/uL (4.3-11.0)
[2021-11-21 09:20] LABS: CALCIUM, SERUM 8.7 mg/dL (8.5-10.1); POTASSIUM 5.4 mmol/L (3.5-5.1)
[2021-11-21 09:42] LABS: CREATININE 7.6 mg/dL (0.6-1.3)
[2021-11-21 09:45] LABS: HEMATOCRIT 20 % (39-51)
--- NOTE | 2021-11-21 09:45 | NUR ---
RN NOTE HEMODIALYSIS STARTED USING PT'S LEFT SUBCLAVIAN TUNNELED PC BY DIALYSIS NURSE, RAH ALCOCRE. VITAL SIGNS: BP 157/88, P 69, R 18, TEMP 98.0, SPO2 97%.
--- NOTE | 2021-11-21 09:55 | NUR ---
RN JAE RECEIVED A CALL FROM [employer] REPORTING CRITICAL LAB RESULT OF BUN 81 AND CREATININE 7.6 AT 0940 AND ALSO RECEIVED ANOTHER CALL FROM ANOTHER [employer]CH[employer] REPORTING CRITICAL LEVEL OF HEMATOCRIT [address] MAYES WITH NO NEW ORDERS AT THIS TIME.
--- NOTE | 2021-11-21 12:50 | NUR ---
RN NOTE HEMODIALYSIS ENDED WITH 1.8L OUTPUT. VITAL SIGNS: BP 133/80, P 76, R 18, TEMP 98.2, SPO2 98%.
--- NOTE | 2021-11-21 14:51 | NUR ---
RN NOTE PT NOTED WITH EPISODES OF AGITATION AND UNTOWARD BEHAVIOR TOWARDS STAFF. PT IS ALSO SCREAMING USING PROFANITY AT STAFF. CALLED DR. AMYES WITH ORDERS FOR PSYCH CONSULT AND ATIVAN 1 MG PO PRN Q4H.
[2021-11-21] MEDS: LORAZEPAM 1 MG TABLET PO PRN ×2 (15:05→22:48)
--- NOTE | 2021-11-21 15:08 | NUR ---
RN NOTE ATIVAN 1MG PO ADMINISTERED ORDERED PRN Q4HRS FOR PT'S EPISODES OF AGITATION AND UNTOWARD BEHAVIOR TOWARDS STAFF. WILL MONITOR AND REASSESS PT.
[2021-11-21] MEDS: OLANZAPINE ZYDIS 5 MG TAB.RAPDIS PO SCH (17:09)
--- NOTE | 2021-11-21 19:27 | NUR ---
STAFFING OPERATIONS MANAGER CLOSING NOTE PT AWAKE IN BED. A/O X2-3 WITH EPISODES OF CONFUSION. REORIENTED PT NEEDED. ON RA, TOLERATING WELL. NO SOB NOTED. NOT IN ANY SIGN OF RESPIRATORY DISTRESS. PT STILL REFUSED TO HAVE THE TELE GROUND WORKER. EXPLAINED THE IMPORTANCE OF HAVING TO TELE GROUND WORKER ON, STILL STRONGLY REFUSED. TELE BOX REMAINS IN THE TELE STATION. IV ACCESS IN CORINNA MIDLINE G#18, SALINE LOCK, INTACT AND PATENT. ALL NEEDS ATTENDED. KEPT CLEAN AND COMFORTABLE. SAFETY MEASURES IN PLACE: BED IN LOWEST AND LOCKED POSITION, BED ALARM ON, SIDE RAILS UPX2, AND CALL LIGHT WITHIN REACH. ENDORSED TO ENLISTED ADVISOR NURSE FOR STEVEN.
--- NOTE | 2021-11-21 19:48 | NUR ---
RN OPENING NOTES RECEIVED PT IN BED, ASLEEP, AWAKENS TO VERBAL STIMULI. AOx2. ON RA AND TOLERATING WELL. NO SOB NOTED. NO S/SX OF RESPIRATORY DISTRESS NOTED. PT REFUSES TELE MONITOR. IV ACCESS IN CORINNA MIDLINE #18G. IV IS INTACT, PATENT, AND FLUSHING WELL. SAFETY PRECAUTIONS IN PLACE: BED IN LOWEST, LOCKED POSITION, SIDERAILS UPx2, AND BRAKES ON. TABLE AND CALL LIGHT WITHIN REACH. ALL NEEDS MET AT THIS TIME.
--- NOTE | 2021-11-21 22:48 | NUR ---
RN NOTES ADMINISTERED ATIVAN FOR AGITATION PER MD ORDER.
[2021-11-22] VITALS (7 sets, daily range): BP systolic 124–146; BP diastolic 59–89
[2021-11-22 05:40] LABS: BASOPHILS # (AUTO) 0.1 K/uL (0.0-0.2); BASOPHILS % (AUTO) 1.1 % (0.0-2.0); EOSINOPHILS % (AUTO) 9.9 % (0.0-6.0); LYMPHOCYTES # (AUTO) 1.4 K/uL (0.8-4.8); LYMPHOCYTES % (AUTO) 24.7 % (20.0-44.0); MEAN CORPUSCULAR HGB CONC 35 g/dl (31.0-36.0); MEAN CORPUSCULAR VOLUME 95 fL (80-96); MONOCYTES # (AUTO) 0.6 K/uL (0.1-1.30); MONOCYTES % (AUTO) 11.2 % (2.0-12.0); NEUTROPHILS # (AUTO) 3.1 K/uL (1.8-8.9); NEUTROPHILS % (AUTO) 53.1 % (43.0-81.0); PLATELET COUNT (AUTO) 187 K/uL (150-450); RED BLOOD CELL COUNT(AUTO) 2.04 MIL/uL (4.5-6.0); WHITE BLOOD COUNT (AUTO) 5.8 K/uL (4.3-11.0)
[2021-11-22 05:51] LABS: HEMATOCRIT 19 % (39-51); HEMOGLOBIN 6.7 g/dL (13.5-17.5)
[2021-11-22 05:57] LABS: BASOPHILS % (MANUAL) 1 % (0.0-2.0); EOSINOPHILS % (MANUAL) 8 % (0-4); MONOCYTES % (MANUAL) 10 % (0-11.0)
[2021-11-22 05:58] LABS: CALCIUM, SERUM 8.7 mg/dL (8.5-10.1); CREATININE 6.2 mg/dL (0.6-1.3); POTASSIUM 5.2 mmol/L (3.5-5.1)
[2021-11-22 06:00] LABS: BAND % (MANUAL) 4 % (0.0-5.0); LYMPHOCYTES % (MANUAL) 25 % (16-48)
[2021-11-22 06:01] LABS: NEUTROPHILS % (MANUAL) 52 (42-76)
--- NOTE | 2021-11-22 06:04 | NUR ---
RN NOTES RECEIVED CRITICAL LAB VALUE FOR HEMOGLOBIN OF 6.7 AND HEMATOCRIT OF 19. MAVIS QUIJANO NP, MADE AWARE. ORDERED 1 UNIT PRBC.
--- NOTE | 2021-11-22 06:49 | NUR ---
RN CLOSING NOTES PT IN BED, ASLEEP, AWAKENS TO VERBAL STIMULI. AOx2. ON RA AND TOLERATING WELL. NO SOB NOTED. NO S/SX OF RESPIRATORY DISTRESS NOTED. PT REFUSES TELE MONITOR. IV ACCESS IN CORINNA MIDLINE #18G. IV IS INTACT, PATENT, AND FLUSHING WELL. ALL ORDERS CARRIED OUT. ALL NEEDS MET. PT KEPT CLEAN AND DRY. SAFETY PRECAUTIONS IN PLACE: BED IN LOWEST, LOCKED POSITION, SIDERAILS UPx2, AND BRAKES ON. TABLE AND CALL LIGHT WITHIN REACH. WILL ENDORSE TO ONCOMING SHIFT FOR STEVEN.
--- NOTE | 2021-11-22 07:27 | NUR ---
LIMOUSINE AND HEARSE UPHOLSTERER OPENING NOTES PT RECEIVED AWAKE IN BED IN NO ACUTE SIGNS OF DISTRESS. A/O x2. ABLE TO MAKE NEEDS KNOWN, CALM, QUIET WITH NO C/O PAIN AT THIS TIME. ON ROOM AIR, TOLERATING WELL WITH NO SOB NOTED. PT REFUSES TELE MONITOR. CORINNA MIDLINE #18G INTACT, PATENT, AND FLUSHING WELL. SAFETY PRECAUTIONS IN PLACE: BED IN LOWEST, LOCKED POSITION, SIDE-RAILS UPx2, BED ALARM ON, TRAY TABLE AND CALL LIGHT WITHIN REACH. WILL CONTINUE TO MONITOR PT. .
[2021-11-22] MEDS: risperiDONE 1 MG TABLET PO SCH (08:14)
[2021-11-22] MEDS: SEVELAMER CARBONATE 800 MG TABLET PO SCH ×3 (08:14→17:20)
[2021-11-22] MEDS: PHENYTOIN EXTENDED RELEASE 100 MG CAPSULE PO SCH ×3 (08:14→17:20)
[2021-11-22] MEDS: FERROUS SULFATE (325 MG) 325 MG/TAB TABLET PO SCH ×2 (08:14→17:20)
[2021-11-22] MEDS: LEVETIRACETAM (250 MG) 250 MG TABLET PO SCH ×2 (08:14→17:20)
[2021-11-22] MEDS: DIVALPROEX SODIUM 125 MG CAP.SPRINK PO SCH ×2 (08:14→20:46)
[2021-11-22] MEDS: PANTOPRAZOLE 40 MG VIAL IV SCH ×2 (08:15→20:46)
[2021-11-22] MEDS: BENZTROPINE MESYLATE (1 MG) 1 MG TABLET PO SCH (08:15)
[2021-11-22] MEDS: PROSOURCE / PROSTAT (PYXIS) 30 ML UDC PO SCH ×3 (08:17→17:00)
[2021-11-22] MEDS: LORAZEPAM 1 MG TABLET PO PRN (10:09)
--- NOTE | 2021-11-22 10:10 | NUR ---
RN NOTES PT NOTED RESTLESS, SHOUTING LOUDLY IN HIS ROOM. PRN ATIVAN 1MG TAB GIVEN AT 1009. WILL CONTINUE TO MONITOR PT.
--- NOTE | 2021-11-22 11:51 | NUR ---
RN NOTES DR GARCÍA, PSYCH MD CAME AND ASSESSED PT AND ORDERED TO D/C ZYPREXA 10MG PO AND RESPERAL 1MG PO AND START PATIENT ON HALDOL 5MG TAB TID.
[2021-11-22] MEDS: HALOPERIDOL 5 MG TABLET PO SCH ×2 (12:38→17:21)
--- NOTE | 2021-11-22 15:11 | NUR ---
RN NOTES PT WITH HGB OF 6.7 TODAY, PRBC X1 STARTED AT 1454 WITH HEMODIALYSIS. PRE HD V/S: BP 137/81, P 72, R 18 AND T 97.7F. WILL MONITOR FOR ANY ADVERSE/ALLERGIC REACTIONS.
--- NOTE | 2021-11-22 15:41 | NUR ---
RN NOTES NO ALLERGIC/ADVERSE REACTIONS BNOTED AFTER 15MINUTES OF BLOOD TRANSFUSSION WITH HD. V/S TAKEN AND RECORDED.
--- NOTE | 2021-11-22 15:42 | NUR ---
RN NOTES PER SOFTWARE QUALITY TESTER , BLOOD TRANSFUSION COMPLETED AND PT TOLERATED WITH NO ALLERGIC/ADVERSE REACTIONS NOTED. S/P BLOOD TRANSFUSION BP: 128/72, P 72, R 18 AND T 97.8. WILL CONTINUE TO MONITOR PT.
--- NOTE | 2021-11-22 17:25 | NUR ---
RN NOTES PT JUST COMPLETED AND TOLERATED HEMODIALYSIS WITH 1.700ML OUT. DRESSING ON LCW PERMA CATH CHANGED BY CHILDCARE ADMINISTRATOR . SP HD V/S: BP 145/87, P 75, R 18 AND T 97.9. WILL CONTINUE TO MONITOR.
--- NOTE | 2021-11-22 18:43 | NUR ---
SEO STRATEGIST CLOSING NOTES PT IN BED ASLEEP AT THSI TIME, EASILY AWAKENS. PT IS A/O X2. ABLE TO MAKE NEEDS KNOWN WITH PERIODS OF CONFUSION AND AGITATION NOTED. ON ROOM AIR, TOLERATING WELL WITH NO SOB NOTED. PT REFUSED TELE MONITOR, NO C/O CARDIAC DISTRESS VOICED DURING SHIFT. INGE MIDLINE #18G INTACT, PATENT, AND FLUSHING WELL. ALL NEEDS ATTENDED WELL. SAFETY PRECAUTIONS IN PLACE: BED IN LOWEST, LOCKED POSITION, SIDE-RAILS UPx2, BED ALARM ON, TRAY TABLE AND CALL LIGHT WITHIN REACH OF PT. PT GETTING OOB ON AND OFF DURING SHIFT AND NOT USING CALL LIGHT OR CALLING STAFF FOR ASSISTANCE TO WALK TO THE BATHROOM DESPITE SEVERAL TIMES OF EXPLAINING TO HIM THAT HE MIGHT FALL IF HE WALK BY HIMSELF ONLY, PT NON-COMPLIANT. WILL ENDORSE STEVEN TO FOCUSER NURSE.
--- NOTE | 2021-11-22 20:06 | NUR ---
UNDERWEAR HEMMER OPENING NOTES PT IN BED ASLEEP AT THIS TIME, EASILY AWAKENS. PT IS A/O X2. ABLE TO MAKE NEEDS KNOWN WITH PERIODS OF CONFUSION AND AGITATION NOTED. ON ROOM AIR, TOLERATING WELL WITH NO SOB NOTED. PT REFUSED TELE MONITOR, NO C/O CARDIAC DISTRESS VOICED AT THIS TIME. INGE MIDLINE #18G INTACT, PATENT, AND FLUSHING WELL. ALL NEEDS ATTENDED WELL. SAFETY PRECAUTIONS IN PLACE: BED IN LOWEST, LOCKED POSITION, SIDE-RAILS UPx2, BED ALARM ON, TRAY TABLE AND CALL LIGHT WITHIN REACH OF PT. BED ALARM ON AT THI SITME. CALL LIGHT WITHIN REACH,. TABLE WITHIN REACH. BED IN LOWEST POSITION. HOB ELEVATED FOR ASPIRATION PRECAUTIONS.
--- NOTE | 2021-11-23 06:49 | NUR ---
WIRING INSPECTOR CLOSING NOTES PT IN BED ASLEEP AT THIS TIME, EASILY AWAKENS. PT IS A/O X2. ABLE TO MAKE NEEDS KNOWN WITH PERIODS OF CONFUSION AND AGITATION NOTED. ON ROOM AIR, TOLERATING WELL WITH NO SOB NOTED. PT REFUSED TELE MONITOR, NO C/O CARDIAC DISTRESS VOICED AT THIS TIME. INGE MIDLINE #18G INTACT, PATENT, AND FLUSHING WELL. ALL NEEDS ATTENDED WELL. SAFETY PRECAUTIONS IN PLACE: BED IN LOWEST, LOCKED POSITION, SIDE-RAILS UPx2, BED ALARM ON, TRAY TABLE AND CALL LIGHT WITHIN REACH OF PT. BED ALARM ON AT THI TIME. CALL LIGHT WITHIN REACH,. TABLE WITHIN REACH. BED IN LOWEST POSITION. HOB ELEVATED FOR ASPIRATION PRECAUTIONS.
--- NOTE | 2021-11-23 07:15 | NUR ---
CHEMICAL ENGINEERING TECHNICIAN OPENING NOTES PT IN BED ASLEEP AT THIS TIME, EASILY AWAKEN. PT IS A/O X2. ABLE TO MAKE NEEDS KNOWN WITH PERIODS OF CONFUSION AND AGITATION NOTED. ON ROOM AIR, WITH EQUAL AND UNLABORED BREATHING, TOLERATING WELL WITH NO SOB NOTED. PT REFUSED TELE MONITOR, NO C/O CARDIAC DISTRESS. CORINNA MIDLINE #18G INTACT AND PATENTWITH LEFT IJ CATH FOR HD, PATENT AND INTACT. SAFETY PRECAUTIONS IN PLACE: BED IN LOWEST, LOCKED POSITION, SIDE-RAILS UPx2, BED ALARM ON, AND CALL LIGHT WITHIN REACH AT ALL TIMES. WILL CONTINUE TO MONITOR PATIENT.
[2021-11-23 08:00] VITALS: BP 151/69
[2021-11-23] MEDS: PHENYTOIN EXTENDED RELEASE 100 MG CAPSULE PO SCH ×3 (08:20→17:31)
[2021-11-23] MEDS: SEVELAMER CARBONATE 800 MG TABLET PO SCH ×4 (08:20→18:00)
[2021-11-23] MEDS: HALOPERIDOL 5 MG TABLET PO SCH ×3 (08:20→17:31)
[2021-11-23] MEDS: BENZTROPINE MESYLATE (1 MG) 1 MG TABLET PO SCH (08:20)
[2021-11-23] MEDS: PANTOPRAZOLE 40 MG VIAL IV SCH ×2 (08:20→21:00)
[2021-11-23] MEDS: FERROUS SULFATE (325 MG) 325 MG/TAB TABLET PO SCH ×3 (08:20→17:31)
[2021-11-23] MEDS: DIVALPROEX SODIUM 125 MG CAP.SPRINK PO SCH ×2 (08:20→21:00)
[2021-11-23] MEDS: LEVETIRACETAM (250 MG) 250 MG TABLET PO SCH ×2 (08:21→17:31)
[2021-11-23] MEDS: PROSOURCE / PROSTAT (PYXIS) 30 ML UDC PO SCH ×3 (08:24→17:00)
--- NOTE | 2021-11-23 13:00 | NUR ---
ROOF BOLTER NOTE BP WENT UP AGAIN, PATIENT IS ASYMPTOMATIC, CALLED EPIC EXCHANGE TO NOTIFY MD. AWATING CALL BACK.
[2021-11-23 13:23] LABS: BASOPHILS # (AUTO) 0.1 K/uL (0.0-0.2); BASOPHILS % (AUTO) 1.1 % (0.0-2.0); EOSINOPHILS % (AUTO) 10.6 % (0.0-6.0); HEMATOCRIT 22 % (39-51); HEMOGLOBIN 7.5 g/dL (13.5-17.5); LYMPHOCYTES # (AUTO) 1.7 K/uL (0.8-4.8); LYMPHOCYTES % (AUTO) 26.8 % (20.0-44.0); MEAN CORPUSCULAR HGB CONC 35 g/dl (31.0-36.0); MEAN CORPUSCULAR VOLUME 94 fL (80-96); MONOCYTES # (AUTO) 0.7 K/uL (0.1-1.30); MONOCYTES % (AUTO) 10.8 % (2.0-12.0); NEUTROPHILS # (AUTO) 3.2 K/uL (1.8-8.9); NEUTROPHILS % (AUTO) 50.7 % (43.0-81.0); PLATELET COUNT (AUTO) 165 K/uL (150-450); RED BLOOD CELL COUNT(AUTO) 2.32 MIL/uL (4.5-6.0); WHITE BLOOD COUNT (AUTO) 6.4 K/uL (4.3-11.0)
[2021-11-23 13:30] LABS: CALCIUM, SERUM 8.4 mg/dL (8.5-10.1); CREATININE 6.5 mg/dL (0.6-1.3); POTASSIUM 5.2 mmol/L (3.5-5.1)
[2021-11-23 14:49] LABS: FERRITIN 782 ng/mL (8-388)
[2021-11-23 14:53] LABS: IRON, SERUM 178 ug/dl (50-175); TOTAL IRON BINDING CAPACITY 182 ug/dl (250-450)
[2021-11-23] MEDS: LORAZEPAM 1 MG TABLET PO PRN (14:59)
[2021-11-23 16:00] VITALS: BP 116/71
--- NOTE | 2021-11-23 19:00 | NUR ---
PHILOSOPHY INSTRUCTOR CLOSING NOTES PT IN BED ASLEEP AT THIS TIME, EASILY AWAKEN. PT IS A/O X2. ABLE TO MAKE NEEDS KNOWN WITH PERIODS OF CONFUSION AND AGITATION NOTED. ON ROOM AIR, WITH EQUAL AND UNLABORED BREATHING, TOLERATING WELL WITH NO SOB NOTED. PT REFUSED TELE MONITOR, NO C/O CARDIAC DISTRESS. CORINNA MIDLINE #18G INTACT AND PATENTWITH LEFT IJ CATH FOR HD, PATENT AND INTACT. SAFETY PRECAUTIONS IN PLACE: BED IN LOWEST, LOCKED POSITION, SIDE-RAILS UPx2, BED ALARM ON, AND CALL LIGHT WITHIN REACH AT ALL TIMES. ENDORSED TO NEXT SHIFT FOR CONTINUITY OF CARE.
--- NOTE | 2021-11-23 19:43 | NUR ---
FLAG DECORATOR OPENING NOTES PT IN BED ASLEEP AT THIS TIME, EASILY AWAKEN. PT IS A/O X2. ABLE TO MAKE NEEDS KNOWN WITH PERIODS OF CONFUSION AND AGITATION NOTED. ON ROOM AIR, WITH EQUAL AND UNLABORED BREATHING, TOLERATING WELL WITH NO SOB NOTED. PT REFUSED TELE MONITOR, NO C/O CARDIAC DISTRESS.PT IS S/P HEMODIALYSIS THIS AFTERNOON WITH 1L OUTPUT.CORINNA MIDLINE #18G INTACT AND PATENT WITH LEFT IJ CATH FOR HD, PATENT AND INTACT. SAFETY PRECAUTIONS IN PLACE: BED IN LOWEST, LOCKED POSITION, SIDE-RAILS UPx2, BED ALARM ON, AND CALL LIGHT WITHIN REACH AT ALL TIMES.
[2021-11-24] MEDS: LORAZEPAM 1 MG TABLET PO PRN (00:19)
--- NOTE | 2021-11-24 00:20 | NUR ---
telephone switchboard operator notes prn ativan given for agitation tolerated well.
[2021-11-24 00:39] VITALS: BP 121/77
--- NOTE | 2021-11-24 06:40 | NUR ---
HR ASSOCIATE CLOSING NOTES PT IN BED ASLEEP AT THIS TIME, EASILY AWAKEN. PT IS A/O X2. ABLE TO MAKE NEEDS KNOWN WITH PERIODS OF CONFUSION AND AGITATION NOTED. ON ROOM AIR, WITH EQUAL AND UNLABORED BREATHING, TOLERATING WELL WITH NO SOB NOTED. PT REFUSED TELE MONITOR, NO C/O CARDIAC DISTRESS. CORINNA MIDLINE #18G INTACT AND PATENT WITH LEFT IJ CATH FOR HD, PATENT AND INTACT. SAFETY PRECAUTIONS IN PLACE: BED IN LOWEST, LOCKED POSITION, SIDE-RAILS UPx2, BED ALARM ON, AND CALL LIGHT WITHIN REACH AT ALL TIMES.
[2021-11-24 07:07] LABS: IMMUNOGLOBULIN A, SERUM 451 mg/dL (61-437); IMMUNOGLOBULIN G, SERUM 1213 mg/dL (603-1613); IMMUNOGLOBULIN M, SERUM 88 mg/dL (20-172)
--- NOTE | 2021-11-24 07:18 | NUR ---
OBJECTIVE C DEVELOPER OPENING NOTES PT IN A/O X2, ABLE TO MAKE NEEDS KNOWN. ON ROOM AIR, WITH EQUAL AND UNLABORED BREATHING, TOLERATING WELL WITH NO SOB NOTED. PT REFUSED TELE MONITOR, SIGNS AND SYMPTOMS OF DISTRESS. WITH CORINNA MIDLINE #18G, INTACT AND PATENT. WITH LEFT IJ CATH FOR HD, COVERED WITH TEGADERM, DRY AND INTACT. COMFORT MEASURES PROVIDED. SAFETY PRECAUTIONS IN PLACE: BED IN LOWEST, LOCKED POSITION, SIDE-RAILS UPx2, BED ALARM ON, AND CALL LIGHT WITHIN REACH AT ALL TIMES. WILL CONTINUE TO MONITOR PATIENT.
[2021-11-24 08:00] VITALS: BP 154/85
[2021-11-24] MEDS: FERROUS SULFATE (325 MG) 325 MG/TAB TABLET PO SCH (08:30)
[2021-11-24] MEDS: HALOPERIDOL 5 MG TABLET PO SCH ×2 (08:30→12:17)
[2021-11-24] MEDS: SEVELAMER CARBONATE 800 MG TABLET PO SCH ×2 (08:30→12:16)
[2021-11-24] MEDS: LEVETIRACETAM (250 MG) 250 MG TABLET PO SCH (08:30)
[2021-11-24] MEDS: PHENYTOIN EXTENDED RELEASE 100 MG CAPSULE PO SCH ×2 (08:31→12:16)
[2021-11-24] MEDS: DIVALPROEX SODIUM 125 MG CAP.SPRINK PO SCH (08:31)
[2021-11-24] MEDS: BENZTROPINE MESYLATE (1 MG) 1 MG TABLET PO SCH (08:31)
[2021-11-24 08:34] LABS: CALCIUM, SERUM 8.8 mg/dL (8.5-10.1); CREATININE 5.2 mg/dL (0.6-1.3); POTASSIUM 5.4 mmol/L (3.5-5.1)
[2021-11-24 08:53] LABS: BASOPHILS # (AUTO) 0.1 K/uL (0.0-0.2); EOSINOPHILS % (AUTO) 9.7 % (0.0-6.0); HEMATOCRIT 23 % (39-51); HEMOGLOBIN 7.9 g/dL (13.5-17.5); LYMPHOCYTES # (AUTO) 1.7 K/uL (0.8-4.8); MEAN CORPUSCULAR HGB CONC 35 g/dl (31.0-36.0); MEAN CORPUSCULAR VOLUME 94 fL (80-96); MONOCYTES # (AUTO) 0.6 K/uL (0.1-1.30); MONOCYTES % (AUTO) 10.2 % (2.0-12.0); NEUTROPHILS # (AUTO) 3.2 K/uL (1.8-8.9); NEUTROPHILS % (AUTO) 52.1 % (43.0-81.0); PLATELET COUNT (AUTO) 175 K/uL (150-450); RED BLOOD CELL COUNT(AUTO) 2.44 MIL/uL (4.5-6.0); WHITE BLOOD COUNT (AUTO) 6.1 K/uL (4.3-11.0)
[2021-11-24] MEDS: PROSOURCE / PROSTAT (PYXIS) 30 ML UDC PO SCH ×2 (09:00→11:57)
[2021-11-24] MEDS: PANTOPRAZOLE 40 MG VIAL IV SCH (09:51)
[2021-11-24] MEDS ORDERED: EPOE1000 IJ (13:47)
--- NOTE | 2021-11-24 14:15 | NUR ---
HOSIERY KNITTER NOTE WITH MD ORDER FOR DISCHARGE. HEALTH TEACHING DONE REGARDING DISCHARGE INSTRUCTIONS. PATIENT VERBALIZED UNDERSTANDING AND APPRECIATION. COMFORT MEASURES PROVIDED. IN STABLE CONDITION. WILL CONTINUE TO MONITOR PATIENT.
[2021-11-24 15:06] LABS: *SPE A/G RATIO 1.1 (0.7-1.7); *SPE ALPHA-1-GLOBULIN 0.3 g/dL (0.0-0.4); *SPE ALPHA-2-GLOBULIN 0.5 g/dL (0.4-1.0); *SPE BETA GLOBULIN 0.9 g/dL (0.7-1.3); *SPE M-SPIKE Not Observed g/dL (Not Observed)
--- NOTE | 2021-11-24 15:45 | NUR ---
POUCH MAKER NOTE PATIENT DISCHARGED ORDERED. IN STABLE CONDITION. PATIENT PICKED UP BY 2 EMT PERSONNEL. MIDLINE REMOVED AND COVERED WITH DRY DRESSING, TOLERATED WELL. DISCHARGE PAPERS GIVEN TO EMT AND PATIENT ENDORSED TO FACILITY RN KAREL. ENDORSED ACCORDINGLY.
== END 2021-11-24 15:48 | DRG 814 ==
LOC: ER 13:50 → TELE 17:15
PROVIDERS: ADMIT Nurse Practitioner Acute Care; ATTEND Internal Medicine
PROC: 30233N1 Transfusion of Nonautologous Red Blood Cells into Peripheral Vein, Percutaneous Approach (ICD-10-PCS; principal; 2021-11-18)
PROC: 5A1D70Z Performance of Urinary Filtration, Intermittent, Less than 6 Hours Per Day (ICD-10-PCS; 2021-11-20)
PROC: 05HF33Z Insertion of Infusion Device into Left Cephalic Vein, Percutaneous Approach (ICD-10-PCS; 2021-11-21)
DX: D75.89 Other specified diseases of blood and blood-forming organs (principal); N18.6 End stage renal disease; G93.40 Encephalopathy, unspecified; F20.0 Paranoid schizophrenia; F05 Delirium due to known physiological condition; D68.59 Other primary thrombophilia; Z86.711 Personal history of pulmonary embolism; Z99.2 Dependence on renal dialysis; E11.22 Type 2 diabetes mellitus with diabetic chronic kidney disease; D63.1 Anemia in chronic kidney disease; Z20.822 Contact with and (suspected) exposure to COVID-19; G40.909 Epilepsy, unspecified, not intractable, without status epilepticus; J44.9 Chronic obstructive pulmonary disease, unspecified; R26.9 Unspecified abnormalities of gait and mobility; F31.9 Bipolar disorder, unspecified; Z88.6 Allergy status to analgesic agent; Z88.8 Allergy status to other drugs, medicaments and biological substances; Z79.899 Other long term (current) drug therapy; E87.5 Hyperkalemia; F03.90 Unspecified dementia, unspecified severity, without behavioral disturbance, psychotic disturbance, mood disturbance, and anxiety; F41.9 Anxiety disorder, unspecified; M89.8X9 Other specified disorders of bone, unspecified site; Z86.16 Personal history of COVID-19; D72.10 Eosinophilia, unspecified; M51.36 Other intervertebral disc degeneration, lumbar region
CPT/HCPCS: 36415; 71045-TC; 80048-TC; 80076-TC; 80164-TC; 80185-TC; 82607-TC; 82728-TC; 82784; 83540-TC; 83690-TC; 83735-TC; 84100-TC; 84155; 84165; 85025-TC; 85730-TC; 86334; 86850-TC; 87081-TC; 90935-TC; C9113; C9803; G0378; J1630; J2060; J7030; J7040; J7050; P9016

== ENCOUNTER 2021-12-15 16:42 | Inpatient (IN) | payer MEDICARE, OTHER ==
[~2021-12-15] VITALS: Ht 182.9 cm; Wt 81.2 kg
[~2021-12-15 16:42] MED LIST changes: +BENZ1TAB7 PO; +EPOE1000 IJ; -EPOE40002 IV; -LORA2VIA11 IM; -MAG30ORA PO
--- NOTE | 2021-12-15 16:45 | NUR ---
LUCÍA MONTES FROM CARE FACILITY FOR LOW H/H=6.5/18.8. PLACED ON BED, AWAKE ALERT RESPONDING TO VERBAL STIMULI, BREATHING EVEN AND UNLABORED SATURATING AT 98%RA.
--- NOTE | 2021-12-15 16:50 | NUR ---
CUSTOMER OPERATIONS REPRESENTATIVE AT BEDSIDE
[2021-12-15 17:45] LABS: BASOPHILS # (AUTO) 0.1 K/uL (0.0-0.2); EOSINOPHILS % (AUTO) 10.4 % (0.0-6.0); LYMPHOCYTES # (AUTO) 1.5 K/uL (0.8-4.8); LYMPHOCYTES % (AUTO) 26.1 % (20.0-44.0); MEAN CORPUSCULAR HGB CONC 34 g/dl (31.0-36.0); MEAN CORPUSCULAR VOLUME 104 fL (80-96); MONOCYTES # (AUTO) 0.6 K/uL (0.1-1.30); MONOCYTES % (AUTO) 10.2 % (2.0-12.0); NEUTROPHILS % (AUTO) 52.3 % (43.0-81.0); PLATELET COUNT (AUTO) 181 K/uL (150-450); WHITE BLOOD COUNT (AUTO) 5.7 K/uL (4.3-11.0)
--- NOTE | 2021-12-15 18:00 | NUR ---
SWAB FOR COVID19 SENT TO LAB
[2021-12-15 18:09] LABS: RED BLOOD CELL COUNT(AUTO) 1.67 MIL/uL (4.5-6.0)
[2021-12-15 18:11] LABS: HEMATOCRIT 17 % (39-51); HEMOGLOBIN 5.9 g/dL (13.5-17.5)
[2021-12-15 18:13] LABS: ALBUMIN 3.1 g/dL (3.4-5.0); BILIRUBIN,TOTAL 0.3 mg/dL (0.2-1.0); CALCIUM, SERUM 8.5 mg/dL (8.5-10.1); TOTAL PROTEIN, SERUM 6.4 g/dL (6.4-8.2)
[2021-12-15 18:15] LABS: CREATININE 7.9 mg/dL (0.6-1.3); POTASSIUM 6.1 mmol/L (3.5-5.1)
[2021-12-15] MEDS ORDERED: ALBUTEROL FS 2.5 MG/3 ML VIAL.NEB NEB ONE (18:30)
[2021-12-15] MEDS ORDERED: SODIUM BICARBONATE SYR 50 MEQ/50 ML DISP.SYRIN IV ONE (18:30)
[2021-12-15] MEDS ORDERED: CALCIUM CHLORIDE 1,000 MG/10 ML DISP.SYRIN IV ONE (18:30)
[2021-12-15] MEDS ORDERED: IV NS 0.9% 500 ML BAG IV ONE (18:30)
[2021-12-15] MEDS ORDERED: SODIUM BICARBONATE SYR 50 MEQ/50 ML DISP.SYRIN ONE (18:43)
[2021-12-15] MEDS ORDERED: CALCIUM CHLORIDE 1,000 MG/10 ML DISP.SYRIN ONE (18:43)
[2021-12-15] MEDS ORDERED: SODIUM POLYSTYRENE SULF. PWD 15 GM UDC PO ONE (19:00)
[2021-12-15] MEDS ORDERED: Z GUARD REMEDY 4 OZ OINT TP PRN (19:00)
[2021-12-15] MEDS ORDERED: ACETAMINOPHEN 325 MG TABLET PO PRN (19:00)
[2021-12-15] MEDS ORDERED: ONDANSETRON HCL/PF 4 MG/2 ML VIAL IVP PRN (19:00)
[2021-12-15] MEDS ORDERED: MAG HYDROX/AL HYDROX/SIMETH 30 ML UDC PO PRN (19:00)
[2021-12-15] MEDS ORDERED: SODIUM POLYSTYRENE SULFONATE 15 G/60 ML BOTTLE PO ONE (19:00)
[2021-12-15] MEDS ORDERED: MAGNESIUM HYDROXIDE 30 ML UDC PO PRN (19:00)
--- NOTE | 2021-12-15 20:00 | NUR ---
COMENCED ON BLOOD TRANSFUSION (B-NEG) AT 75MLS/HR. TEMP-97.7, CT-65, RR-18, BP-135/78, SATS-98%RA.
[2021-12-15 20:04] LABS: BAND % (MANUAL) 1 % (0.0-5.0); EOSINOPHILS % (MANUAL) 8 % (0-4); LYMPHOCYTES % (MANUAL) 20 % (16-48); MONOCYTES % (MANUAL) 4 % (0-11.0); NEUTROPHILS % (MANUAL) 67 (42-76)
--- NOTE | 2021-12-15 20:23 | NUR ---
REPORT GIVEN TO ALICIA RN ROOM 120-1 FOR STEVEN
--- NOTE | 2021-12-15 20:30 | NUR ---
RN ADMITTING NOTE RECEIVED FROM ER VIA GURANASTACIA ACCOMPANIED BY DIYA RN AND EMT, PT AAO X 2, AMBULATORY WITH ASSIST, IN NO ACUTE DISTRESS, SATURATION AT 98& ON ROOM AIR, SR ON THE MONITOR, HR IS 71. IV LINE AT RFA 20G WITH ONGOING BLOOD TRANSFUSION OF 1 UNIT PRBC. L IJ HD CATH IN PLACE, DRESSING CLEAN AND DRY. COMPREHENSIVE ASSESSMENT DONE, NO SKIN ISSUES NOTED. SAFETY MEASURES IN PLACE, BED IS LOCKED AND AT LOWEST POSITION, BED ALARM ON, CALL LIGHT WITHIN REACH OF PATIENT. WILL CONT TO MONITOR AND CARRY OUT MD ORDERS.
[2021-12-15 21:00] VITALS: BP 105/70
[2021-12-15] MEDS ORDERED: SODIUM POLYSTYRENE SULFONATE 15 G/60 ML BOTTLE ONE (21:59)
[2021-12-15] MEDS: ZOLPIDEM TARTRATE 5 MG TABLET PO PRN (22:04)
[2021-12-16] VITALS (9 sets, daily range): BP systolic 102–150; BP diastolic 63–88
[2021-12-16 06:43] LABS: BASOPHILS # (AUTO) 0.1 K/uL (0.0-0.2); BASOPHILS % (AUTO) 0.9 % (0.0-2.0); EOSINOPHILS % (AUTO) 10.7 % (0.0-6.0); LYMPHOCYTES # (AUTO) 1.2 K/uL (0.8-4.8); LYMPHOCYTES % (AUTO) 22.3 % (20.0-44.0); MEAN CORPUSCULAR HGB CONC 34 g/dl (31.0-36.0); MEAN CORPUSCULAR VOLUME 101 fL (80-96); MONOCYTES # (AUTO) 0.6 K/uL (0.1-1.30); MONOCYTES % (AUTO) 9.9 % (2.0-12.0); NEUTROPHILS # (AUTO) 3.1 K/uL (1.8-8.9); NEUTROPHILS % (AUTO) 56.2 % (43.0-81.0); PLATELET COUNT (AUTO) 164 K/uL (150-450); WHITE BLOOD COUNT (AUTO) 5.6 K/uL (4.3-11.0)
[2021-12-16 06:47] LABS: RED BLOOD CELL COUNT(AUTO) 1.94 MIL/uL (4.5-6.0)
[2021-12-16 06:48] LABS: HEMATOCRIT 20 % (39-51); HEMOGLOBIN 6.7 g/dL (13.5-17.5)
[2021-12-16 06:57] LABS: CALCIUM, SERUM 8.9 mg/dL (8.5-10.1); MAGNESIUM 2.5 mg/dL (1.8-2.4); POTASSIUM 5.8 mmol/L (3.5-5.1)
[2021-12-16 07:19] LABS: CREATININE 8.4 mg/dL (0.6-1.3)
--- NOTE | 2021-12-16 07:30 | NUR ---
RN OPENING NOTE PATIENT IS IN BED ASLEEP BUT EASILY AROUSABLE. ALERT, ORIENTED X 2. ON ROOM AIR, BREATHING UNLABORED AND NOT IN ANY FORM OF DISTRESS. SINUS RHYTHM ON HUMAN RESOURCES DISTRICT MANAGER. LEFT IJ HD CATHETER INTACT AND COVERED WITH DRY DRESSING. RIGHT FOREARM IV SALINE LOCK INTACT AND PATENT. ALL HOSPITAL SAFETY MEASURES IN PLACE. BED IS LOCKED IN LOWEST POSITION, 3 SIDE RAILS UP, CALL LIGHT WITHIN REACH. WILL CONTINUE TO MONITOR THROUGHOUT SHIFT.
[2021-12-16] MEDS: PANTOPRAZOLE 40 MG TABLET.DR PO SCH (08:03)
[2021-12-16] MEDS ORDERED: diphenhydrAMINE HCL 50 MG/ML VIAL IV PRN (09:30)
--- NOTE | 2021-12-16 10:02 | NUR ---
RN NOTE ONGOING HEMODIALYSIS FOR PATIENT. NOT IN ANY FORM OF DISTRESS. WILL CONTINUE TO MONITOR.
--- NOTE | 2021-12-16 11:00 | NUR ---
RN NOTE INFORMED DR. LAMAS VIA TEXT FOR MEDICATION RECONCILIATION OF HOME MEDS.
--- NOTE | 2021-12-16 12:11 | NUR ---
RN NOTE HEMODIALYSIS ENDED, BP: 102/63, HR 73 BPM. NOT IN ANY FORM OF DISTRESS.
--- NOTE | 2021-12-16 18:53 | NUR ---
RN CLOSING NOTE PATIENT REMAINED STABLE THROUGHOUT SHIFT. TOLERATES ROOM AIR, BREATHING UNLABORED AND NOT IN ANY FORM OF DISTRESS. ABLE TO MAKE NEEDS KNOWN. ALL HOSPITAL SAFETY PRECAUTIONS IN PLACE. WILL ENDORSE TO CORRECTIONAL SUPERVISOR LIEUTENANT NURSE.
--- NOTE | 2021-12-16 19:30 | NUR ---
RN NOTE PATIENT IN BED, AAO X 2, IN NO ACUTE DISTRESS, SATURATION AT 98% ON ROOM AIR, SR ON THE MONITOR, HR IS 64. IV LINE AT RFA 20G PATENT AND FLUSHING WELL. L IJ HD CATH IN PLACE, DRESSING CLEAN AND DRY. SAFETY MEASURES IN PLACE, BED IS LOCKED AND AT LOWEST POSITION, BED ALARM ON, CALL LIGHT WITHIN REACH OF PATIENT. NOTED HGB 6.7 TODAY WITH PENDING TRANSFUSION OF 1 UNIT PRBC, AWAITING UNIT OF BLOOD TO BE READY.
--- NOTE | 2021-12-16 22:10 | NUR ---
RN NOTE TELEPHONE CALL TO LAB TO FOLLOW UP ON PRBS ORDERED AT 1459 TODAY. SPOKE WITH JESSICA WHO ACKNOWLEDGED AND STATED THEY WILL PREPARE IT NOW. Addendum: 12/17/21 at 0209 by ALICIA SIEGEL RN *PRB
[2021-12-16] MEDS: ZOLPIDEM TARTRATE 5 MG TABLET PO PRN (23:56)
[2021-12-17] VITALS: BP 127/88
[2021-12-17 02:10] VITALS: BP 134/79
[2021-12-17 04:00] VITALS: BP 134/79
[2021-12-17 07:06] LABS: BASOPHILS # (AUTO) 0.1 K/uL (0.0-0.2); BASOPHILS % (AUTO) 0.9 % (0.0-2.0); EOSINOPHILS % (AUTO) 8.1 % (0.0-6.0); HEMATOCRIT 23 % (39-51); LYMPHOCYTES # (AUTO) 1.4 K/uL (0.8-4.8); LYMPHOCYTES % (AUTO) 24.2 % (20.0-44.0); MEAN CORPUSCULAR HGB CONC 34 g/dl (31.0-36.0); MEAN CORPUSCULAR VOLUME 97 fL (80-96); MONOCYTES # (AUTO) 0.8 K/uL (0.1-1.30); MONOCYTES % (AUTO) 13.1 % (2.0-12.0); NEUTROPHILS # (AUTO) 3.2 K/uL (1.8-8.9); NEUTROPHILS % (AUTO) 53.7 % (43.0-81.0); PLATELET COUNT (AUTO) 150 K/uL (150-450); RED BLOOD CELL COUNT(AUTO) 2.39 MIL/uL (4.5-6.0); WHITE BLOOD COUNT (AUTO) 5.9 K/uL (4.3-11.0)
[2021-12-17 07:08] LABS: CALCIUM, SERUM 8.7 mg/dL (8.5-10.1); CREATININE 6.4 mg/dL (0.6-1.3); MAGNESIUM 2.1 mg/dL (1.8-2.4); POTASSIUM 4.8 mmol/L (3.5-5.1)
[2021-12-17 07:13] LABS: HEMOGLOBIN 7.9 g/dL (13.5-17.5)
--- NOTE | 2021-12-17 07:35 | NUR ---
RN OPENING NOTE PATIENT IN BED, AO X 2-3, IN NO ACUTE DISTRESS, SATURATION AT 98% ON ROOM AIR, SR ON THE MONITOR, HR IS IN THE 60S. IV LINE AT RFA 20G PATENT AND FLUSHING WELL. L IJ HD CATH IN PLACE, DRESSING CLEAN AND DRY. SAFETY MEASURES IN PLACE, BED IS LOCKED AND AT LOWEST POSITION, BED ALARM ON, CALL LIGHT WITHIN REACH OF PATIENT. WILL CONTINUE PLAN OF CARE AND ANTICIPATE NEEDS.
[2021-12-17] MEDS: PANTOPRAZOLE 40 MG TABLET.DR PO SCH (07:43)
[2021-12-17 08:00] VITALS: BP 126/64
[2021-12-17 12:00] VITALS: BP 122/54
--- NOTE | 2021-12-17 16:13 | NUR ---
PATIENT HAS BEEN DISCHARGED BACK TO [facility]. IV ACCESS REMOVED, MINIMAL BLEEDING NOTED, COVERED WITH GAUZE AND TAPE. HOSPITAL ID BAND REMOVED. DISCHARGE PAPERWORK SIGNED BY AMBULANCE CREW. PATIENT LEFT WITH AMBULANCE CREW IN STABLE CONDITION.
== END 2021-12-17 16:14 | DRG 808 ==
LOC: ER 16:45 → MEDSG1 20:51 → TELE1 21:02
PROVIDERS: ADMIT Student in an Organized Health Care Education/Training Program; ATTEND Student in an Organized Health Care Education/Training Program
PROC: 30233N1 Transfusion of Nonautologous Red Blood Cells into Peripheral Vein, Percutaneous Approach (ICD-10-PCS; 2021-12-15)
PROC: 5A1D70Z Performance of Urinary Filtration, Intermittent, Less than 6 Hours Per Day (ICD-10-PCS; principal; 2021-12-16)
DX: D61.89 Other specified aplastic anemias and other bone marrow failure syndromes (principal); N18.6 End stage renal disease; G93.40 Encephalopathy, unspecified; F03.94 Unspecified dementia, unspecified severity, with anxiety; E44.1 Mild protein-calorie malnutrition; D63.1 Anemia in chronic kidney disease; Z99.2 Dependence on renal dialysis; G40.909 Epilepsy, unspecified, not intractable, without status epilepticus; Z86.711 Personal history of pulmonary embolism; Z86.718 Personal history of other venous thrombosis and embolism; Z86.16 Personal history of COVID-19; J44.9 Chronic obstructive pulmonary disease, unspecified; R26.9 Unspecified abnormalities of gait and mobility; F25.9 Schizoaffective disorder, unspecified; Z88.6 Allergy status to analgesic agent; Z88.8 Allergy status to other drugs, medicaments and biological substances; Z79.899 Other long term (current) drug therapy; E87.5 Hyperkalemia; E86.0 Dehydration; F31.9 Bipolar disorder, unspecified; F41.9 Anxiety disorder, unspecified; E87.6 Hypokalemia; M89.8X9 Other specified disorders of bone, unspecified site
CPT/HCPCS: 36415; 71045-TC; 80048-TC; 80053-TC; 83735-TC; 84100-TC; 85025-TC; 86706; 86850-TC; 87081-TC; 87340; C9803; G0378; J1200; J3490; J7030; J7040; J7050; P9016

== ENCOUNTER 2022-01-12 14:32 | Inpatient (IN) | payer MEDICARE, OTHER ==
[~2022-01-12] VITALS: Ht 180.3 cm; Wt 68.5 kg
[~2022-01-12 14:32] MED LIST changes: -EPOE1000 IJ
--- NOTE | 2022-01-12 14:39 | NUR ---
[facility] H/H 5.1/17.1". PLACED ON BED, AWAKE ALERT- COOPERATIVE, BREATHING EVEN AND UNLABORED.
--- NOTE | 2022-01-12 14:40 | NUR ---
MOVE SHEET SUBMITTED.
--- NOTE | 2022-01-12 14:44 | NUR ---
BLOOD DRAWN AND SENT TO LAB
[2022-01-12 14:56] LABS: BASOPHILS % (AUTO) 0.5 % (0.0-2.0); EOSINOPHILS % (AUTO) 3.2 % (0.0-6.0); LYMPHOCYTES # (AUTO) 1.2 K/uL (0.8-4.8); LYMPHOCYTES % (AUTO) 13.5 % (20.0-44.0); MEAN CORPUSCULAR HGB CONC 35 g/dl (31.0-36.0); MEAN CORPUSCULAR VOLUME 101 fL (80-96); MONOCYTES % (AUTO) 10.9 % (2.0-12.0); NEUTROPHILS # (AUTO) 6.4 K/uL (1.8-8.9); NEUTROPHILS % (AUTO) 71.9 % (43.0-81.0); PLATELET COUNT (AUTO) 201 K/uL (150-450); WHITE BLOOD COUNT (AUTO) 8.9 K/uL (4.3-11.0)
[2022-01-12 15:09] LABS: ALANINE AMINOTRANSFERASE 14 U/L (12-78); ALBUMIN 3.1 g/dL (3.4-5.0); ALKALINE PHOSPHATASE 89 U/L (46-116); ASPARTATE AMINOTRANSFERASE 12 U/L (15-37); BILIRUBIN,DIRECT 0.1 mg/dL (0.0-0.2); BILIRUBIN,TOTAL 0.2 mg/dL (0.2-1.0); CALCIUM, SERUM 8.6 mg/dL (8.5-10.1); CARBON DIOXIDE 27 mmol/L (21-32); CHLORIDE 102 mmol/L (98-107); GLUCOSE 89 mg/dL (74-106); POTASSIUM 5.2 mmol/L (3.5-5.1); SODIUM SERUM 137 mmol/L (136-145); TOTAL PROTEIN, SERUM 6.8 g/dL (6.4-8.2); UREA NITROGEN, BLOOD 64 mg/dL (7-18)
[2022-01-12 15:12] LABS: RED BLOOD CELL COUNT(AUTO) 1.68 MIL/uL (4.5-6.0)
[2022-01-12 15:14] LABS: HEMATOCRIT 17 % (39-51)
--- NOTE | 2022-01-12 15:30 | NUR ---
swab for covid19 sent to lab
[2022-01-12] MEDS ORDERED: BISACODYL SUPP (10 MG) 10 MG/SUPP.RECT SUPP.RECT RC PRN (16:00)
[2022-01-12] MEDS ORDERED: ACETAMINOPHEN 325 MG TABLET PO PRN ×2 (16:00→16:30)
[2022-01-12] MEDS ORDERED: OLANZAPINE 10 MG VIAL IM ONE ×2 (16:28→16:30)
[2022-01-12] MEDS ORDERED: Z GUARD REMEDY 4 OZ OINT TP PRN (16:30)
[2022-01-12] MEDS ORDERED: ONDANSETRON HCL/PF 4 MG/2 ML VIAL IVP PRN (16:30)
[2022-01-12] MEDS: FERROUS SULFATE (325 MG) 325 MG/TAB TABLET PO SCH (17:00)
[2022-01-12] MEDS: risperiDONE 1 MG TABLET PO SCH (17:00)
[2022-01-12] MEDS: OLANZAPINE ZYDIS 5 MG TAB.RAPDIS PO SCH (17:00)
[2022-01-12] MEDS: PHENYTOIN EXTENDED RELEASE 100 MG CAPSULE PO SCH (17:00)
[2022-01-12] MEDS: LEVETIRACETAM (250 MG) 250 MG TABLET PO SCH (17:00)
[2022-01-12] MEDS ORDERED: FERROUS SULFATE (325 MG) 325 MG/TAB TABLET ONE (17:02)
[2022-01-12] MEDS ORDERED: LEVETIRACETAM (250 MG) 250 MG TABLET PO ONE (17:03)
[2022-01-12] MEDS ORDERED: PHENYTOIN EXTENDED RELEASE 100 MG CAPSULE PO ONE (17:03)
[2022-01-12] MEDS ORDERED: risperiDONE 1 MG TABLET ONE (17:03)
--- NOTE | 2022-01-12 17:27 | NUR ---
GOT BED 102
--- NOTE | 2022-01-12 18:26 | NUR ---
REPORT GIVEN TO EDENILSON RN ROOM 102 FOR STEVEN
[2022-01-12 20:00] VITALS: BP 146/76
[2022-01-12 20:25] VITALS: BP 147/69
[2022-01-12 20:40] VITALS: BP 124/70
[2022-01-12] MEDS: DIVALPROEX SODIUM 500 MG TABLET.DR PO SCH (20:59)
[2022-01-12] MEDS: SEVELAMER CARBONATE 800 MG TABLET PO SCH (20:59)
[2022-01-12 21:25] VITALS: BP 147/69
[2022-01-12 21:36] LABS: EOSINOPHILS % (MANUAL) 2 % (0-4); LYMPHOCYTES % (MANUAL) 11 % (16-48); MONOCYTES % (MANUAL) 11 % (0-11.0); NEUTROPHILS % (MANUAL) 76 (42-76)
[2022-01-12 22:17] LABS: LIPASE 500 U/L (73-393)
[2022-01-12] MEDS ORDERED: QUETIAPINE FUMARATE 25 MG TABLET PO ONE (23:00)
--- NOTE | 2022-01-12 23:00 | NUR ---
RN NOTE PATIENT AGITATED AND TRIED TO PULL OUT IV LINE, TOOK OFF TELE MONITOR, AND KEPT YELLING ON STAFF. DR CAMPOS WAS NOTIFIED, ORDER RECEIVED FOR SEROQUEL 25 MG PO X 1.
--- NOTE | 2022-01-12 23:07 | NUR ---
RN OPENING NOTE PT FOUND IN L LATERAL POSITION WITH BLANKET OVER BODY AND FACE. A&OX2 AND UNCOOPERATIVE. SKIN WARM AND DRY. RESPIRATIONS EVEN AND UNLABORED. PT AMBULATED TO RESTROOM TO VOID WITH 2 PERSON ASSIST. PT PLACED BACK IN BED WITH SAFETY PRECAUTIONS IN PLACE. PT IS AGITATED AND YELLING IN ROOM. NOTIFIED OF BEHAVIOR. Addendum: 01/12/22 at 2311 by ALICIA SIEGEL RN CORREST DOCUMENTATION TIME 2200
[2022-01-13] VITALS (12 sets, daily range): BP systolic 114–168; BP diastolic 57–94
[2022-01-13 06:10] LABS: BASOPHILS % (AUTO) 0.4 % (0.0-2.0); EOSINOPHILS % (AUTO) 2.2 % (0.0-6.0); LYMPHOCYTES # (AUTO) 1.2 K/uL (0.8-4.8); LYMPHOCYTES % (AUTO) 12.4 % (20.0-44.0); MEAN CORPUSCULAR HGB CONC 34 g/dl (31.0-36.0); MEAN CORPUSCULAR VOLUME 103 fL (80-96); MONOCYTES % (AUTO) 10.5 % (2.0-12.0); NEUTROPHILS # (AUTO) 7.3 K/uL (1.8-8.9); NEUTROPHILS % (AUTO) 74.5 % (43.0-81.0); PLATELET COUNT (AUTO) 163 K/uL (150-450); WHITE BLOOD COUNT (AUTO) 9.8 K/uL (4.3-11.0)
[2022-01-13 06:37] LABS: HEMATOCRIT 19 % (39-51); HEMOGLOBIN 6.2 g/dL (13.5-17.5)
--- NOTE | 2022-01-13 06:51 | NUR ---
RN NOTE CRITICAL LAB VALUE, HGB 6.2. DR CAMPOS NOTIFIED. ENROLLMENT SERVICES DEAN SOONY AWARE
[2022-01-13 06:57] LABS: ALBUMIN 2.9 g/dL (3.4-5.0); BILIRUBIN,TOTAL 0.4 mg/dL (0.2-1.0); CALCIUM, SERUM 8.8 mg/dL (8.5-10.1); MAGNESIUM 2.4 mg/dL (1.8-2.4); PHOSPHORUS 5.1 mg/dL (2.5-4.9); POTASSIUM 5.5 mmol/L (3.5-5.1); TOTAL PROTEIN, SERUM 6.3 g/dL (6.4-8.2)
[2022-01-13 07:20] LABS: CREATININE 8.1 mg/dL (0.6-1.3)
--- NOTE | 2022-01-13 07:32 | NUR ---
UNMANNED EQUIPMENT OPERATOR OPENING NOTES: RECEIVED PATIENT IN BED, ASLEEP BUT EASILY AROUSES TO SOUND AND TACTILE STIMULI. PATIENT WAS NOTED TO BE ALERT, ORIENTED X 1 BUT STARTED TO SCREAM AT THE NURSE AND REFUSED TO HAVE HIS TELE MONITOR PLACED. PATIENT HAS NO SOB NOTED AND NO RESPIRATORY DISTRESS AT THIS TIME. ON RA WITH OXYGEN SATURATION OF 96%. IV ACCESS ON LEFT AC INTACT BUT REFUSED FOR THE NURSE TO FLUSH HIS IV, SITE WITH NO S/S INFILTRATION NOTED. BED LOCKED AND IN LOWEST POSITION. CALL LIGHT WITHIN REACH. INSTRUCTED PATIENT TO PLEASE CALL THE NURSE IF HE NEEDS TO GET UP BUT SEEMS TO NOT UNDERSTAND THE INSTRUCTION. BED ALARM ON. WILL CONTINUE TO MONITOR PATIENT THROUGHOUT SHIFT.
[2022-01-13] MEDS: SEVELAMER CARBONATE 800 MG TABLET PO SCH ×3 (08:26→17:01)
[2022-01-13] MEDS: LORAZEPAM 1 MG TABLET PO SCH ×2 (09:00→13:06)
[2022-01-13] MEDS: DIVALPROEX SODIUM 500 MG TABLET.DR PO SCH ×2 (09:09→20:56)
[2022-01-13] MEDS: risperiDONE 1 MG TABLET PO SCH ×3 (09:09→16:35)
[2022-01-13] MEDS: LEVETIRACETAM (250 MG) 250 MG TABLET PO SCH ×2 (09:09→16:35)
[2022-01-13] MEDS: FERROUS SULFATE (325 MG) 325 MG/TAB TABLET PO SCH ×2 (09:09→16:35)
[2022-01-13] MEDS: BENZTROPINE MESYLATE (1 MG) 1 MG TABLET PO SCH (09:09)
[2022-01-13] MEDS: PHENYTOIN EXTENDED RELEASE 100 MG CAPSULE PO SCH ×3 (09:10→16:35)
[2022-01-13 10:16] LABS: EOSINOPHILS % (MANUAL) 2 % (0-4); LYMPHOCYTES % (MANUAL) 22 % (16-48); MONOCYTES % (MANUAL) 1 % (0-11.0); NEUTROPHILS % (MANUAL) 75 (42-76)
[2022-01-13] MEDS: diphenhydrAMINE HCL 50 MG/ML VIAL IV PRN (10:53)
--- NOTE | 2022-01-13 11:45 | NUR ---
BLOOD IS READY TO BE PICKED UP BUT NOTICED THAT THE PATIENT IS MISSING THE ID BAND NEEDED FOR BLOOD TRANSFUSION. WILL LOOK FOR THE BAND
--- NOTE | 2022-01-13 12:15 | NUR ---
UNABLE TO FIND THE BLOOD TRANSFUSION BAND. CALLED LAB FOR REDRAW FOR TYPE AND SCREEN. PATIENT WAS ALSO NOTED THAT HIS IV ACCESS SITE IS NOT WORKING. TRIED MULTIPLE TIMES AND THE PATIENT KEPT REFUSING. WILL GET AN ORDER FOR MIDLINE. CHARGE NURSE, NURSING SHOT PACKER AND MD NOTIFIED.
--- NOTE | 2022-01-13 12:41 | NUR ---
DIALYSIS NURSE ANDRE HAD TO TERMINATE THE HD RIGHT NOW DUE TO SOME PROBLEMS WITH THE MACHINE.. WAS ABLE TO DO DIALYSIS FOR 1 1/2 HOURS AND TOOK OUT [address] BARRIOS WILL BE NOTIFIED BY THE HD NURSE.
--- NOTE | 2022-01-13 13:33 | NUR ---
MIDLINE NURSE CAME AND INSERTED AN IV FOR THE PATIENT ON RIGHT UPPER ARM. PATIENT TOLERATED PROCEDURE WELL. IV PATENT, INTACT AND FLUSHES WELL.
--- NOTE | 2022-01-13 15:48 | NUR ---
LINING SETTER CAME BY TO DRAW BLOOD FOR TYPE AND SCREEN, ALSO PLACED A BLOOD TRANSFUSION BAND TO THE PATIENT.
[2022-01-13] MEDS: OLANZAPINE ZYDIS 5 MG TAB.RAPDIS PO SCH (16:35)
--- NOTE | 2022-01-13 17:50 | NUR ---
STARTED BLOOD TRANSFUSION ORDERED BY THE DOCTOR AND VERIFIED BLOOD PRODUCT WITH ANOTHER RN, HUA SMITH. V/S FOLLOWS: BP 114/57, PULSE 74, TEMP 98.2 RR 20, OXYGEN SATURATION 96% ON RA.
--- NOTE | 2022-01-13 18:05 | NUR ---
PATIENT WITH NO TRANSFUSION REACTION AFTER THE FIRST 15 MINUTES OF ADMINISTERING THE BLOOD PRODUCT. V/S FOLLOWS: BP 130/70, PULSE 74, TEMP 98.3, RR 20, OXYGEN SATURATION OF 95% ON RA. WILL CONTINUE TO MONITOR PATIENT
--- NOTE | 2022-01-13 18:55 | NUR ---
INSPECTOR PAWNSHOP DETAIL CLOSING NOTES: PATIENT STILL HAS THE BLOOD BEING ADMINISTERED VIA LEFT UPPER ARM MIDLINE. PATIENT IS TOLERATING IT WELL, NO APPARENT DISTRESS OR REACTION NOTED. NO SOB, BREATHING EVEN AND UNLABORED. V/S FOLLOWS: BP 137/71, PULSE 75, TEMP 98.0, RR 20, OXYGEN SATURATION OF 97% ON RA. WILL ENDORSE TO INCOMING NURSE FOR CONTINUITY OF CARE.
--- NOTE | 2022-01-13 20:00 | NUR ---
RN OPENING NOTE PT FOUND LYING IN R LATERAL POSTION. PRBC TRANSFUSING INTO R UA MIDLINE @ 120 MLS/HR. PT TOLERATING WELL WITH NO SIGN OF TRANSFUSION REACTION. NO SIGNS OF ACUTE DISTRESS. BED LOCKED AND PLACED AT THE LOWEST LEVEL WITH 2 RAILS UP AND BED ALARM ON.
[2022-01-14] VITALS: BP 140/62
[2022-01-14 04:00] VITALS: BP 142/85
[2022-01-14 06:56] LABS: BASOPHILS % (AUTO) 0.6 % (0.0-2.0); CALCIUM, SERUM 8.9 mg/dL (8.5-10.1); CREATININE 7.4 mg/dL (0.6-1.3); EOSINOPHILS % (AUTO) 4.4 % (0.0-6.0); HEMATOCRIT 21 % (39-51); LYMPHOCYTES # (AUTO) 1.5 K/uL (0.8-4.8); LYMPHOCYTES % (AUTO) 18.8 % (20.0-44.0); MEAN CORPUSCULAR HGB CONC 34 g/dl (31.0-36.0); MEAN CORPUSCULAR VOLUME 98 fL (80-96); MONOCYTES % (AUTO) 12.6 % (2.0-12.0); NEUTROPHILS # (AUTO) 5.2 K/uL (1.8-8.9); NEUTROPHILS % (AUTO) 63.6 % (43.0-81.0); PLATELET COUNT (AUTO) 151 K/uL (150-450); POTASSIUM 5.4 mmol/L (3.5-5.1); RED BLOOD CELL COUNT(AUTO) 2.09 MIL/uL (4.5-6.0); WHITE BLOOD COUNT (AUTO) 8.2 K/uL (4.3-11.0)
--- NOTE | 2022-01-14 07:20 | NUR ---
RN OPENING NOTE RECEIVED PT FOUND LYING IN R LATERAL POSITION. PT IS ALERT AND ORIENTED X1-2. PT HAS GENERALIZED WEAKNESS. PT AMBULATORY WITH ASSISTANCE. PT HAS TENDENCY TO SCREAM. PT IS ON ROOM AIR. NO SIGNS OF PAIN OR DISCOMFORT. PT HAS SOME TYPE OF UNSYMMETRICAL DROOPING ON FACE. PT IS FALL RISK. ALL SAFETY MEASURES IN PLACE. CALL LIGHT WITHIN REACH.BED LOCKED AT LOWEST POSITION. SIDE RAILS UP X3.BED ALARM ON
[2022-01-14 08:00] VITALS: BP 133/76
[2022-01-14] MEDS: DIVALPROEX SODIUM 500 MG TABLET.DR PO SCH ×2 (08:11→20:38)
[2022-01-14] MEDS: SEVELAMER CARBONATE 800 MG TABLET PO SCH ×3 (08:11→17:00)
[2022-01-14] MEDS: BENZTROPINE MESYLATE (1 MG) 1 MG TABLET PO SCH (08:11)
[2022-01-14] MEDS: FERROUS SULFATE (325 MG) 325 MG/TAB TABLET PO SCH ×2 (08:12→16:20)
[2022-01-14] MEDS: LEVETIRACETAM (250 MG) 250 MG TABLET PO SCH ×2 (08:12→16:20)
[2022-01-14] MEDS: PHENYTOIN EXTENDED RELEASE 100 MG CAPSULE PO SCH ×3 (08:12→16:20)
[2022-01-14] MEDS: risperiDONE 1 MG TABLET PO SCH ×3 (08:12→16:20)
[2022-01-14] MEDS: diphenhydrAMINE HCL 50 MG/ML VIAL IV PRN (11:49)
--- NOTE | 2022-01-14 11:49 | NUR ---
RN NOTES PER HD NURSE, PATIENT TRYING TO STNAD UP WHILE ON DIALYSIS,WILL ADMINISTER BENADRYL 25MG IV.
[2022-01-14 12:00] VITALS: BP 172/99
--- NOTE | 2022-01-14 13:30 | NUR ---
rn notes: pt completed dialysis without any complication,2.5 liter fluid was taken
[2022-01-14 16:00] VITALS: BP 129/75
--- NOTE | 2022-01-14 16:00 | NUR ---
RN notes: pt noted with episodes of screaming and yelling he say he need to eat or drink when give food or drink he calm down and lie down quietly, also with multiple episodes of getting out of bed unsteady walk to bathroom assist him to the bathroom and back to bed unable to comprehend instructions to call for assistant clinical nurse manager. will monitor
[2022-01-14] MEDS: OLANZAPINE ZYDIS 5 MG TAB.RAPDIS PO SCH (16:20)
--- NOTE | 2022-01-14 19:00 | NUR ---
FLIGHT ATTENDANT CLOSING NOTES: PATIENT STILL HAS THE BLOOD BEING ADMINISTERED VIA LEFT UPPER ARM MIDLINE. PATIENT IS TOLERATING IT WELL, NO APPARENT DISTRESS OR REACTION NOTED. NO SOB, BREATHING EVEN AND UNLABORED. V/S FOLLOWS: BP 137/71, PULSE 75, TEMP 98.0, RR 20, OXYGEN SATURATION OF 97% ON RA. endorse to night court magistrate RN to monitor
--- NOTE | 2022-01-14 19:55 | NUR ---
RN OPENING NOTES: RECEIVED PT IN BED, SITTING POSITION. AWAKE, ALERT/ORIENTED X2 WITH CONFUSION AND VERBALLY RESPONSIVE. ON ROOM AIR AND PT TOLERATED WELL. IV ACCESS ON INGE MIDLINE IJ L FOR DIALYSIS SITE INTACT AND PATENT. STILL NOTED EPISODES OF SCREAMING AND YELLING, VERY AGITATED. KEPT STANDING UP AND GOING TO THE RESTROOM WITH UNSTEADY GAIT. HIGH FALL RISK/ NOTIFIED DR. CAMPOS, ORDERED SEROQUEL 25 MG TAB ONCE. ORDER NOTED AND CARRIED OUT. NO C/O PAIN OR DISCOMFORT. NO ACUTE DISTRESS. BED ALARM ON. ALL SAFETY MEASURES IN PLACE. SIDE RAILS UP X 2, BED IN LOWEST POSITION AND LOCKED. WILL CONTINUE TO MONITOR
[2022-01-14 20:00] VITALS: BP 146/82
[2022-01-14] MEDS ORDERED: QUETIAPINE FUMARATE 25 MG TABLET PO ONE (20:00)
[2022-01-15] VITALS: BP 142/92
[2022-01-15 04:00] VITALS: BP 145/90
--- NOTE | 2022-01-15 06:37 | NUR ---
RN CLOSING NOTES: PT IN BED, LYING, AWAKE, ALERT/ORIENTED X2 WITH CONFUSION AND VERBALLY RESPONSIVE. ON ROOM AIR AND PT TOLERATED WELL. O2 SAT 97%. IV ACCESS ON INGE MIDLINE AND LEFT IJ FOR DIALYSIS SITE INTACT AND PATENT. NO ACTIVE BLEEDING NOTED. STILL HAS EPISODES OF SCREAMING AND YELLING WITH AGITATION. KEPT STANDING UP AND GOING TO THE RESTROOM WITH UNSTEADY GAIT. BED ALARM ON. NO C/O PAIN OR DISCOMFORT. NO ACUTE DISTRESS. DUE MEDS GIVEN ORDERED. ALL SAFETY MEASURES IN PLACE. SIDE RAILS UP X 2, BED IN LOWEST POSITION AND LOCKED. WILL ENDORSE TO MORNING SHIFT NURSE.
--- NOTE | 2022-01-15 07:30 | NUR ---
RN OPENING NOTES: RECEIVED PATIENT IN BED, ASLEEP BUT EASILY AROUSES TO VOICE. PATIENT IS ALERT X 1. ON RA WITH OXYGEN SATURATION OF 98%. NO SOB NOTED, BREATHING EVEN AND UNLABORED. PATIENT HAS HD ACCESS ON LEFT IJ. PATIENT HAS RIGHT UPPER MIDLINE FOR IV ACCESS, PATENT, FLUSHES WELL AND NO S/S INFILTRATION NOTED. BED LOCKED AND IN LOWEST POSITION. ALL SAFETY MEASURES IMPLEMENTED. CALL LIGHT WITHIN REACH AND INSTRUCTED PATIENT TO PLEASE USE THE CALL LIGHT WHEN HE NEEDS TO GET UP BUT PATIENT HAS A HARD TIME UNDERSTANDING AND KEPT REPEATING WHAT THE NURSE SAID IN A LOUD VOICE. PATIENT REFUSED TO HAVE HIS TELE MONITOR ON. WILL CONTINUE TO MONITOR PATIENT THROUGHOUT SHIFT.
[2022-01-15] MEDS: SEVELAMER CARBONATE 800 MG TABLET PO SCH ×3 (07:57→17:38)
[2022-01-15 08:00] VITALS: BP 139/89
[2022-01-15] MEDS: DIVALPROEX SODIUM 500 MG TABLET.DR PO SCH ×2 (08:10→21:16)
[2022-01-15] MEDS: LEVETIRACETAM (250 MG) 250 MG TABLET PO SCH ×2 (08:10→17:37)
[2022-01-15] MEDS: BENZTROPINE MESYLATE (1 MG) 1 MG TABLET PO SCH (08:10)
[2022-01-15] MEDS: risperiDONE 1 MG TABLET PO SCH ×3 (08:10→17:37)
[2022-01-15] MEDS: PHENYTOIN EXTENDED RELEASE 100 MG CAPSULE PO SCH ×3 (08:10→17:38)
[2022-01-15] MEDS: FERROUS SULFATE (325 MG) 325 MG/TAB TABLET PO SCH ×2 (08:10→17:37)
--- NOTE | 2022-01-15 09:17 | NUR ---
ORNAMENTER CAME AND PATIENT REFUSED TO HAVE HER BLOOD DRAW, TRIED TO DO IT VIA MIDLINE BUT PATIENT KEPT SCREAMING, INFORMED THE ORNAMENTER TO COME BACK LATER.
--- NOTE | 2022-01-15 11:30 | NUR ---
DR DAMON NOTIFIED THAT THE PATIENT REFUSED TO HAVE HIS TELE MONITOR ON AND ORDERED TO HAVE THE PATIENT ON MED SURG
--- NOTE | 2022-01-15 12:02 | NUR ---
WATER POLLUTION SPECIALIST CAME THE SECOND TIME AND PATIENT REFUSED BLOOD DRAW, ALSO TRIED TO DO IT VIA MIDLINE BUT PATIENT BECAME AGITATED AND STARTED SCREAMING AND YELLING. WILL CONTINUE TO MONITOR PATIENT.
--- NOTE | 2022-01-15 12:11 | NUR ---
CHARGE NURSE NOTIFIED AND WILL TRY AGAIN LATER.
--- NOTE | 2022-01-15 12:11 | NUR ---
CHECKED PATIENT AGAIN AND NOTED THAT THE PATIENT PULLED OUT HIS IV MIDLINE. TRIED TO START ANOTHER IV FOR THE PATIENT BUT PATIENT STARTED SCREAMING AND SAYING "NO"
[2022-01-15 14:46] LABS: BASOPHILS % (AUTO) 0.7 % (0.0-2.0); EOSINOPHILS % (AUTO) 5.9 % (0.0-6.0); LYMPHOCYTES # (AUTO) 1.2 K/uL (0.8-4.8); LYMPHOCYTES % (AUTO) 19.6 % (20.0-44.0); MEAN CORPUSCULAR HGB CONC 34 g/dl (31.0-36.0); MEAN CORPUSCULAR VOLUME 99 fL (80-96); MONOCYTES # (AUTO) 0.7 K/uL (0.1-1.30); MONOCYTES % (AUTO) 10.5 % (2.0-12.0); NEUTROPHILS % (AUTO) 63.3 % (43.0-81.0); PLATELET COUNT (AUTO) 156 K/uL (150-450); WHITE BLOOD COUNT (AUTO) 6.3 K/uL (4.3-11.0)
[2022-01-15 15:24] LABS: RED BLOOD CELL COUNT(AUTO) 1.94 MIL/uL (4.5-6.0)
[2022-01-15 15:26] LABS: HEMATOCRIT 19 % (39-51); HEMOGLOBIN 6.6 g/dL (13.5-17.5)
--- NOTE | 2022-01-15 15:26 | NUR ---
RECEIVED A CALL FROM IVORY BREAUX FROM THE LAB AND REPORTED HGB OF 6.6 AND HCT OF 19. CALLED DR. DAMON @ AND ORDERED TO TRANSFUSE 1 PRBC. ALSO INFORMED THAT THE PATIENT PULLED OUT HIS IV AND WILL NEED ANOTHER MIDLINE.
[2022-01-15] MEDS: EPOETIN ALFA-EPBX 4,000 UNIT/ML VIAL SQ SCH (15:47)
[2022-01-15 16:00] VITALS: BP 128/68
[2022-01-15 16:11] LABS: EOSINOPHILS % (MANUAL) 10 % (0-4); LYMPHOCYTES % (MANUAL) 19 % (16-48); MONOCYTES % (MANUAL) 7 % (0-11.0); NEUTROPHILS % (MANUAL) 64 (42-76)
--- NOTE | 2022-01-15 17:35 | NUR ---
MEDICAL PRACTITIONERS CAME TO DRAW PATENT'S BLOOD FOR TYPE AND CROSSMATCH
[2022-01-15] MEDS: OLANZAPINE ZYDIS 5 MG TAB.RAPDIS PO SCH (17:38)
--- NOTE | 2022-01-15 18:05 | NUR ---
MATTRESS AND BOXSPRINGS SUPERVISOR CAME BACK AGAIN AND REDRAW PATIENT'S BLOOD FOR TYPE AND CROSSMATCH, PREVIOUS BLOOD SPECIMEN WAS NOT ENOUGH. WAS ABLE TO OBTAIN APPROPRIATE BLOOD SAMPLE.
--- NOTE | 2022-01-15 18:57 | NUR ---
WILLIAM PLACED A MIDLINE ON PATIENT'S LEFT UPPER ARM, PATENT AND FLUSHES WELL.
--- NOTE | 2022-01-15 19:15 | NUR ---
RN CLOSING NOTES: PATIENT IN BED ASLEEP, IV MIDLINE ON LEFT UPPER ARM INTACT. NO APPARENT DISTRESS NOTED AT THIS TIME. CALL LIGHT WITHIN REACH. BED LOCKED AND IN LOWEST POSITION. BED ALARM ON. ALL NEEDS MET AND ANTICIPATED. NO ORDER FROM THE LAB ABOUT THE BLOOD AVAILABILITY. WILL ENDORSE TO NEXT SHIFT NURSE TO FOLLOW UP ON BLOOD TRANSFUSION.
--- NOTE | 2022-01-15 19:32 | NUR ---
RN OPENING NOTES: RECEIVED PT IN BED, SLEEPING BUT EASILY AROUSABLE, AWAKE, ALERT/ORIENTED X2 WITH CONFUSION AND VERBALLY RESPONSIVE. ON ROOM AIR AND PT TOLERATED WELL. IV ACCESS ON CORINNA MIDLINE L IJ FOR DIALYSIS SITE INTACT AND PATENT. NO C/O PAIN OR DISCOMFORT. NO ACUTE DISTRESS. STILL HAS EPISODES OF YELLING AND SCREAMING. BED ALARM ON. ALL SAFETY MEASURES IN PLACE. SIDE RAILS UP X 2, BED IN LOWEST POSITION AND LOCKED. WILL CONTINUE TO MONITOR
[2022-01-15 20:00] VITALS: BP 150/76
--- NOTE | 2022-01-15 20:00 | NUR ---
RN NOTES: CALLED BLOOD BANK AND TALKED TO ERIKA IF THE BLOOD IS READY. SHE MENTIONED, BLOOD IS NOT READY YET. WILL CALL BACK WHEN IT WILL BE READY.
--- NOTE | 2022-01-15 21:03 | NUR ---
RN NOTES: NOTIED DR. ARTEAGA REGARDING PT WILL HAVE DIALYSIS NOW AND STILL NOTED EPISODES OF SCREAMING AND YELLING, VERY AGITATED. KEPT STANDING UP AND GOING TO THE RESTROOM WITH UNSTEADY GAIT. HIGH FALL RISK. ORDERED SEROQUEL 25 MG TAB ONCE. ORDER NOTED AND CARRIED OUT.
[2022-01-15] MEDS ORDERED: QUETIAPINE FUMARATE 25 MG TABLET PO ONE (21:30)
--- NOTE | 2022-01-15 21:31 | NUR ---
RN NOTES: BLOOD BANK CALLED AND TALKED TO CORWIN JAMES. MENTIONED, THEY ARE GOING TO RECEIVE BLOOD FROM [facility] AND IT WILL TAKE TIME. SHE IS NOT SURE WHEN THE BLOOD WILL BE READY. WILL CALL BACK AGAIN.
[2022-01-15] MEDS: diphenhydrAMINE HCL 50 MG/ML VIAL IV PRN (21:51)
--- NOTE | 2022-01-15 21:52 | NUR ---
RN NOTES: BENADRYL 0.5 ML GIVEN PRIOR TO DIALYSIS. PT TOLERATED WELL.
[2022-01-16] VITALS (10 sets, daily range): BP systolic 123–157; BP diastolic 64–78
--- NOTE | 2022-01-16 00:55 | NUR ---
RN NOTES: DIALYSIS COMPLETED. PT TOLERATED WELL. 1.8 L OUT. WILL CONTINUE TO MONITOR
--- NOTE | 2022-01-16 07:45 | NUR ---
MS RN NOTE RECEIVED PT IN BED SLEEPING IN BED DONT WANT TO BE AWAKE AT THIA TIME ON RA, TOLERATING WELL, NO S/S OF ACUTE DISTRESS. IV ACCESS LT UPPER ARM MID LINE, IN PLACE ALL SAFETY MEASURES IN PLACE, BED IN LOWEST POSITION AND LOCKED. BED ALARM ON. SIDE RAILS UP X3, PLACE CALL LIGHT WITH IN REACH. WILL CONT TO MONITOR
[2022-01-16] MEDS: LEVETIRACETAM (250 MG) 250 MG TABLET PO SCH ×2 (08:48→17:53)
[2022-01-16] MEDS: SEVELAMER CARBONATE 800 MG TABLET PO SCH ×3 (08:48→17:53)
[2022-01-16] MEDS: DIVALPROEX SODIUM 500 MG TABLET.DR PO SCH ×2 (08:49→20:43)
[2022-01-16] MEDS: FERROUS SULFATE (325 MG) 325 MG/TAB TABLET PO SCH ×2 (08:49→17:53)
[2022-01-16] MEDS: risperiDONE 1 MG TABLET PO SCH ×3 (08:49→17:53)
[2022-01-16] MEDS: BENZTROPINE MESYLATE (1 MG) 1 MG TABLET PO SCH (08:49)
[2022-01-16] MEDS: PHENYTOIN EXTENDED RELEASE 100 MG CAPSULE PO SCH ×3 (08:49→17:53)
--- NOTE | 2022-01-16 08:55 | NUR ---
MS RN NOTE STRONGLY REFUSED TO CHECK BP VERY AGITATED AND NOT COOPERATIVE WILL INFORM MD
[2022-01-16] MEDS: LORAZEPAM 1 MG TABLET PO SCH (10:13)
--- NOTE | 2022-01-16 10:24 | NUR ---
MS RN NOTE REFUSED TO [place] BLOOD AND TAKE BP EARLIER AND BLOOD TRANSFUSION. NOTIFIED DR BONNIE HUGO TO DO BLOOD TRANSFUSION WITH HD TODAY, CALL [facility] HD NURSE LEFT A MESSAGE
--- NOTE | 2022-01-16 12:15 | NUR ---
SOCIAL MEDIA INTERN NOTE STILL STRANGELY REFUSED TO DO BLOOD TRANSFUSION , AWAITING FOR HD NURSE .DR BONNIE MOON AWARE OF IT
[2022-01-16 14:04] LABS: BASOPHILS # (AUTO) 0.1 K/uL (0.0-0.2); EOSINOPHILS % (AUTO) 5.5 % (0.0-6.0); HEMATOCRIT 21 % (39-51); HEMOGLOBIN 7.2 g/dL (13.5-17.5); LYMPHOCYTES # (AUTO) 1.7 K/uL (0.8-4.8); MEAN CORPUSCULAR HGB CONC 34 g/dl (31.0-36.0); MEAN CORPUSCULAR VOLUME 98 fL (80-96); MONOCYTES # (AUTO) 0.7 K/uL (0.1-1.30); MONOCYTES % (AUTO) 10.5 % (2.0-12.0); PLATELET COUNT (AUTO) 204 K/uL (150-450); RED BLOOD CELL COUNT(AUTO) 2.15 MIL/uL (4.5-6.0)
[2022-01-16 14:20] LABS: CALCIUM, SERUM 8.8 mg/dL (8.5-10.1); CREATININE 6.4 mg/dL (0.6-1.3); MAGNESIUM 2.2 mg/dL (1.8-2.4); POTASSIUM 5.1 mmol/L (3.5-5.1)
--- NOTE | 2022-01-16 15:16 | NUR ---
MS RN NOTE CALLED TO DR NICOLE NOTIFIED THAT PATIENT GET VERY AGITATED SEROQUEL AND BENADRYL DID NOT HELP , ORDERED ZYPREXA 10 MG TIME ONE WAS VERY AGITATED DURING HD
[2022-01-16] MEDS ORDERED: OLANZAPINE 10 MG VIAL IM ONE (15:30)
[2022-01-16] MEDS: EPOETIN ALFA-EPBX 4,000 UNIT/ML VIAL SQ SCH (15:35)
[2022-01-16] MEDS: diphenhydrAMINE HCL 50 MG/ML VIAL IV PRN (15:57)
--- NOTE | 2022-01-16 16:23 | NUR ---
MS RN NOTE HD STARTED ORDERED 1 UNIT PRBC TRANSFUSION DURING HD, WILL MONITOR
--- NOTE | 2022-01-16 16:48 | NUR ---
television newscast director note Benadryl was given during hd as ordered
--- NOTE | 2022-01-16 17:00 | NUR ---
ms rn note 2 nd unit prbc started to transfuse by hd no adverse reaction noted
--- NOTE | 2022-01-16 17:25 | NUR ---
MS RN NOTE 2 ND UNIT PRBC TRANSFUSED BY HD NURSE ,NO ADVERSE REACTION NOTED, ZYPREXA GIVEN ORDERED PATENT VERY AGITATED
[2022-01-16] MEDS: OLANZAPINE ZYDIS 5 MG TAB.RAPDIS PO SCH (17:53)
--- NOTE | 2022-01-16 18:29 | NUR ---
MS RN NOTE PATIENT IN BED ,STILL WITH AGITATED TRYING TO REMOVE HD LINES, ON RA NO SOB NOTED , LT UPPER ARM MID LINE IN PACE , AND SECURED, STILL ON HD AT THIS TIME , ON RA, NO SOB NOTED AT THIS TIME ALL NEEDS ATTENDED WILL CONT TO MONITOR CLOSELY
--- NOTE | 2022-01-16 18:48 | NUR ---
MS RN NOTE HD COMPLECTED 3L OUT , BP 124/78 ALL NEEDS ATTENDED NOT IN DISTRESS
--- NOTE | 2022-01-16 19:45 | NUR ---
RN OPENING NOTES: RECEIVED PT IN BED, AWAKE, ALERT/ORIENTED X2 WITH CONFUSION AND VERBALLY RESPONSIVE. ON ROOM AIR AND PT TOLERATED WELL. IV ACCESS ON CORINNA MIDLINE LCW FOR HD INTACT AND PATENT. NO C/O PAIN OR DISCOMFORT. NO ACUTE DISTRESS. STILL HAS EPISODES OF YELLING AND SCREAMING. KEPT GETTING UP AND GOING TO THE BATHROOM WITH UNSTEADY GAIT. BED ALARM ON. ALL SAFETY MEASURES IN PLACE. SIDE RAILS UP X 2, BED IN LOWEST POSITION AND LOCKED. PLACE CALL LIGHT WITH IN REACH, WILL CONTINUE TO MONITOR
[2022-01-16] MEDS: FAMOTIDINE/PF INJ 20 MG/2 ML VIAL IV SCH (20:43)
--- NOTE | 2022-01-16 20:52 | NUR ---
RN NOTES: PT C/O GENERALIZED BODY ACHE. TYLENOL 325 MG 2 TABS GIVEN PER PRN ORDERED. PT TOLERATED WELL WILL CONTINUE TO MONITOR
[2022-01-17] MEDS ORDERED: LORAZEPAM INJ 2 MG/ML VIAL IV ONE (01:00)
--- NOTE | 2022-01-17 01:05 | NUR ---
RN NOTES: HAS EPISODES OF YELLING, SCREAMING, VERY AGITATED. KEPT GETTING UP FROM THE BED WITH UNSTEADY GAIT. NOTIFIED SAMM VANEGAS. ORDER- ATIVAN. 1 MG IVP ONCE. ORDER NOTED AND CARRIED OUT.
[2022-01-17 04:00] VITALS: BP 140/70
--- NOTE | 2022-01-17 07:45 | NUR ---
RN OPENING NOTES: RECEIVED PT IN BED, SLEEPING BUT EASILY AROUSABLE, AWAKE, ALERT/ORIENTED X2 WITH CONFUSION AND VERBALLY RESPONSIVE. PATIENT WAS TRYING TO WALS TO THE BATHROOM WITH VERY UNSTEADY GAIT , .I WAS HELPING HIME GET TO THE BED , BUT PATIENT IS VERY NON COMPLIANT AND AGITATED, CHARGE NURSE WITNESSED AND HELPED TO PUT HIM INTO THE BED , BED ALARM IS ON .PATIENT IS ON ROOM AIR AND TOLERATED WELL. IV ACCESS ON CORINNA MIDLINE L IJ FOR DIALYSIS SITE INTACT AND PATENT. NO C/O PAIN OR DISCOMFORT. NO ACUTE DISTRESS. HAS EPISODES OF YELLING AND SCREAMING. .ALL SAFETY MEASURES IN PLACE. SIDE RAILS UP X 2, BED IN LOWEST POSITION AND LOCKED. WILL CONTINUE TO MONITOR
[2022-01-17] MEDS: SEVELAMER CARBONATE 800 MG TABLET PO SCH ×2 (08:08→12:25)
[2022-01-17] MEDS: FERROUS SULFATE (325 MG) 325 MG/TAB TABLET PO SCH (08:09)
[2022-01-17] MEDS: risperiDONE 1 MG TABLET PO SCH ×2 (08:09→12:25)
[2022-01-17] MEDS: DIVALPROEX SODIUM 500 MG TABLET.DR PO SCH (08:09)
[2022-01-17] MEDS: BENZTROPINE MESYLATE (1 MG) 1 MG TABLET PO SCH (08:09)
[2022-01-17] MEDS: PHENYTOIN EXTENDED RELEASE 100 MG CAPSULE PO SCH ×2 (08:09→12:24)
[2022-01-17] MEDS: FAMOTIDINE/PF INJ 20 MG/2 ML VIAL IV SCH (08:09)
[2022-01-17] MEDS: LEVETIRACETAM (250 MG) 250 MG TABLET PO SCH (08:09)
[2022-01-17 09:26] LABS: BASOPHILS # (AUTO) 0.1 K/uL (0.0-0.2); EOSINOPHILS % (AUTO) 5.4 % (0.0-6.0); HEMATOCRIT 27 % (39-51); HEMOGLOBIN 9.1 g/dL (13.5-17.5); LYMPHOCYTES # (AUTO) 1.2 K/uL (0.8-4.8); LYMPHOCYTES % (AUTO) 20.9 % (20.0-44.0); MEAN CORPUSCULAR HGB CONC 34 g/dl (31.0-36.0); MEAN CORPUSCULAR VOLUME 94 fL (80-96); MONOCYTES # (AUTO) 0.9 K/uL (0.1-1.30); MONOCYTES % (AUTO) 14.9 % (2.0-12.0); NEUTROPHILS # (AUTO) 3.4 K/uL (1.8-8.9); NEUTROPHILS % (AUTO) 57.8 % (43.0-81.0); PLATELET COUNT (AUTO) 174 K/uL (150-450); RED BLOOD CELL COUNT(AUTO) 2.84 MIL/uL (4.5-6.0); WHITE BLOOD COUNT (AUTO) 5.8 K/uL (4.3-11.0)
[2022-01-17 09:39] LABS: CALCIUM, SERUM 8.6 mg/dL (8.5-10.1); CREATININE 5.6 mg/dL (0.6-1.3); MAGNESIUM 2.1 mg/dL (1.8-2.4); PHOSPHORUS 4.6 mg/dL (2.5-4.9); POTASSIUM 4.6 mmol/L (3.5-5.1)
[2022-01-17] MEDS ORDERED: POTASSIUM CHLORIDE 20 MEQ TAB.PRT.SR PO ONE (10:30)
[2022-01-17] MEDS ORDERED: POTASSIUM CL. PREMIX PERIPHER. 50 ML IV SCH (10:30)
--- NOTE | 2022-01-17 11:01 | NUR ---
RN NOTE PATIENT IS AT STABLE HEALTH CONDITION , RECEIVED ORDER FOR DISCHARGE . DISCHARGE INSTRUCTIONS WERE PROVIDED TO THE PATIENT AND TO HER DAUGHTER VERBALLY AND IN WRITTEN .DAUGHTER VERBALIZED UNDERSTANDING . PATIENT DISCHARGED FROM [facility] Addendum: 01/17/22 at 1108 by EDENILSON JOSÉ RN WRONG PATIENT , PLEASE DISREGARD
[2022-01-17 12:00] VITALS: BP 124/70
[2022-01-17 12:24] VITALS: BP 172/84
[2022-01-17] MEDS ORDERED: hydrALAZINE HCL 50 MG TABLET PO ONE (12:30)
--- NOTE | 2022-01-17 14:29 | NUR ---
patient is at stable health condition , order to discharge patient received . discharge instructions provided to the Venecia rn at the [facility] . Patient discharged from [facility]
== END 2022-01-17 14:27 | DRG 808 ==
LOC: ER 14:34 → MEDSG1 18:07 → TELE1 19:21 → MEDSG1 01-15 11:31
PROVIDERS: ADMIT Internal Medicine; ATTEND Nurse Practitioner Acute Care
PROC: 30233N1 Transfusion of Nonautologous Red Blood Cells into Peripheral Vein, Percutaneous Approach (ICD-10-PCS; 2022-01-12)
PROC: 5A1D70Z Performance of Urinary Filtration, Intermittent, Less than 6 Hours Per Day (ICD-10-PCS; principal; 2022-01-13)
PROC: 05H933Z Insertion of Infusion Device into Right Brachial Vein, Percutaneous Approach (ICD-10-PCS; 2022-01-13)
PROC: 05HC33Z Insertion of Infusion Device into Left Basilic Vein, Percutaneous Approach (ICD-10-PCS; 2022-01-15)
DX: D61.89 Other specified aplastic anemias and other bone marrow failure syndromes (principal); G93.41 Metabolic encephalopathy; N18.6 End stage renal disease; E44.1 Mild protein-calorie malnutrition; F03.94 Unspecified dementia, unspecified severity, with anxiety; F03.93 Unspecified dementia, unspecified severity, with mood disturbance; D63.1 Anemia in chronic kidney disease; E86.0 Dehydration; E11.22 Type 2 diabetes mellitus with diabetic chronic kidney disease; Z99.2 Dependence on renal dialysis; Z20.822 Contact with and (suspected) exposure to COVID-19; J44.9 Chronic obstructive pulmonary disease, unspecified; Z79.899 Other long term (current) drug therapy; G40.909 Epilepsy, unspecified, not intractable, without status epilepticus; Z86.16 Personal history of COVID-19; Z86.718 Personal history of other venous thrombosis and embolism; Z86.711 Personal history of pulmonary embolism; F31.9 Bipolar disorder, unspecified; M89.8X9 Other specified disorders of bone, unspecified site; E87.5 Hyperkalemia; F25.9 Schizoaffective disorder, unspecified; R26.9 Unspecified abnormalities of gait and mobility; Z88.6 Allergy status to analgesic agent; Z88.8 Allergy status to other drugs, medicaments and biological substances
CPT/HCPCS: 36410; 36415; 71045-TC; 80048-TC; 80053-TC; 80076-TC; 83690-TC; 83735-TC; 84100-TC; 84484-TC; 85025-TC; 85730-TC; 86706; 86850-TC; 87081-TC; 87340; 90935-TC; C9803; G0378; J0885; J1200; J2060; J3490; J7030; J7050; P9016

== ENCOUNTER 2022-05-15 20:35 | Inpatient (IN) | payer MEDICARE, OTHER ==
[~2022-05-15] VITALS: Ht 177.8 cm; Wt 85.7 kg
[~2022-05-15 20:35] MED LIST changes: -FERR325T28 PO; +PANT40TA2 PO
[2022-05-15] MEDS ORDERED: OLANZAPINE 10 MG VIAL IM ONE ×2 (22:00)
[2022-05-15 22:12] LABS: BASOPHILS % (AUTO) 0.6 % (0.0-2.0); EOSINOPHILS % (AUTO) 18.4 % (0.0-6.0); LYMPHOCYTES # (AUTO) 1.1 K/uL (0.8-4.8); LYMPHOCYTES % (AUTO) 16.2 % (20.0-44.0); MEAN CORPUSCULAR HGB CONC 33 g/dl (31.0-36.0); MEAN CORPUSCULAR VOLUME 99 fL (80-96); MONOCYTES # (AUTO) 0.9 K/uL (0.1-1.30); MONOCYTES % (AUTO) 12.9 % (2.0-12.0); NEUTROPHILS # (AUTO) 3.4 K/uL (1.8-8.9); NEUTROPHILS % (AUTO) 51.9 % (43.0-81.0); PLATELET COUNT (AUTO) 105 K/uL (150-450); WHITE BLOOD COUNT (AUTO) 6.6 K/uL (4.3-11.0)
[2022-05-15 22:32] LABS: RED BLOOD CELL COUNT(AUTO) 1.85 MIL/uL (4.5-6.0)
[2022-05-15 22:34] LABS: HEMATOCRIT 18 % (39-51); HEMOGLOBIN 6.1 g/dL (13.5-17.5)
[2022-05-15 22:47] LABS: ALANINE AMINOTRANSFERASE 23 U/L (12-78); ALBUMIN 3.1 g/dL (3.4-5.0); ALCOHOL, BLOOD < 3 mg/dL (0-0); ALKALINE PHOSPHATASE 103 U/L (46-116); ASPARTATE AMINOTRANSFERASE 22 U/L (15-37); BILIRUBIN,DIRECT 0.2 mg/dL (0.0-0.2); BILIRUBIN,TOTAL 0.2 mg/dL (0.2-1.0); CALCIUM, SERUM 8.3 mg/dL (8.5-10.1); CARBON DIOXIDE 21 mmol/L (21-32); CHLORIDE 104 mmol/L (98-107); GLUCOSE 83 mg/dL (74-106); SODIUM SERUM 137 mmol/L (136-145); TOTAL PROTEIN, SERUM 6.4 g/dL (6.4-8.2)
[2022-05-15 22:57] LABS: POTASSIUM 6.5 mmol/L (3.5-5.1); UREA NITROGEN, BLOOD 115 mg/dL (7-18)
[2022-05-15] MEDS ORDERED: INSULIN REGULAR, HUMAN 100 UNIT/ML 10 ML VIAL IV ONE (23:00)
[2022-05-15] MEDS ORDERED: LORAZEPAM INJ 2 MG/ML VIAL IV ONE ×2 (23:00→23:30)
[2022-05-15] MEDS ORDERED: ALBUTEROL FS 2.5 MG/3 ML VIAL.NEB NEB ONE (23:00)
[2022-05-15] MEDS ORDERED: DEXTROSE 50%-WATER 50 ML DISP.SYRIN IVP ONE (23:00)
[2022-05-15] MEDS ORDERED: Calcium Gluconate 1GM/10ML 4.65 MEQ in IV NS 0.9% 100 ML IV ONE (23:00)
[2022-05-15] MEDS ORDERED: SODIUM BICARBONATE SYR 50 MEQ/50 ML DISP.SYRIN ONE (23:13)
[2022-05-15] MEDS ORDERED: INSULIN REGULAR, HUMAN 100 UNIT/ML 10 ML VIAL ONE (23:14)
[2022-05-15] MEDS ORDERED: LORAZEPAM INJ 2 MG/ML VIAL ONE ×2 (23:15→23:43)
[2022-05-15] MEDS ORDERED: Calcium Gluconate 0.465 MEQ/ML VIAL IV ONE (23:18)
[2022-05-15] MEDS ORDERED: ALBUTEROL FS 2.5 MG/3 ML VIAL.NEB ONE (23:22)
[2022-05-15] MEDS ORDERED: DEXTROSE 50%-WATER 50 ML DISP.SYRIN ONE (23:23)
[2022-05-16] VITALS (8 sets, daily range): BP systolic 142–153; BP diastolic 74–93
[2022-05-16] MEDS ORDERED: MAGNESIUM HYDROXIDE 30 ML UDC PO PRN (01:00)
[2022-05-16] MEDS ORDERED: *INSULIN REGULAR(HUMULIN R)HUM 100 UNIT/ML VIAL SQ PRN (01:00)
[2022-05-16] MEDS ORDERED: ACETAMINOPHEN 325 MG TABLET PO PRN ×2 (01:00)
[2022-05-16] MEDS ORDERED: Z GUARD REMEDY 4 OZ OINT TP PRN (01:00)
[2022-05-16] MEDS ORDERED: BISACODYL SUPP (10 MG) 10 MG/SUPP.RECT SUPP.RECT RC PRN (01:00)
[2022-05-16] MEDS ORDERED: DEXTROSE 50%-WATER 50 ML DISP.SYRIN IV PRN (01:00)
[2022-05-16] MEDS ORDERED: ONDANSETRON HCL/PF 4 MG/2 ML VIAL IVP PRN (01:00)
[2022-05-16] MEDS ORDERED: INSULIN REGULAR, HUMAN 100 UNIT/ML 3 ML VIAL SQ PRN (01:00)
[2022-05-16] MEDS ORDERED: MAG HYDROX/AL HYDROX/SIMETH 30 ML UDC PO PRN (01:00)
[2022-05-16 02:34] LABS: CALCIUM, SERUM 8.3 mg/dL (8.5-10.1); CREATININE 5.9 mg/dL (0.6-1.3); POTASSIUM 3.9 mmol/L (3.5-5.1)
[2022-05-16] MEDS: LORAZEPAM INJ 2 MG/ML VIAL IV PRN ×2 (02:46→07:59)
[2022-05-16] MEDS ORDERED: PANTOPRAZOLE 40 MG TABLET.DR PO SCH (07:00)
[2022-05-16] MEDS: BLOOD SUGAR DIAGNOSTIC 1 EACH STRIP VI SCH ×2 (07:30→11:20)
[2022-05-16] MEDS: SEVELAMER CARBONATE 800 MG TABLET PO SCH ×2 (08:00→13:00)
[2022-05-16] MEDS: BENZTROPINE MESYLATE (1 MG) 1 MG TABLET PO SCH ×2 (08:49→09:45)
[2022-05-16] MEDS ORDERED: risperiDONE 1 MG TABLET PO SCH (09:00)
[2022-05-16] MEDS ORDERED: OLANZAPINE 10 MG VIAL IM ONE ×2 (09:00)
[2022-05-16] MEDS ORDERED: DIVALPROEX SODIUM 125 MG CAP.SPRINK PO SCH (09:00)
[2022-05-16] MEDS ORDERED: LEVETIRACETAM (250 MG) 250 MG TABLET PO SCH (09:00)
[2022-05-16] MEDS: PROSOURCE / PROSTAT (PYXIS) 30 ML UDC PO SCH ×2 (09:00→13:22)
[2022-05-16 09:01] LABS: BASOPHILS % (MANUAL) 0 % (0.0-2.0); EOSINOPHILS % (MANUAL) 18 % (0-4); LYMPHOCYTES % (MANUAL) 19 % (16-48); MONOCYTES % (MANUAL) 4 % (0-11.0); NEUTROPHILS % (MANUAL) 59 (42-76)
[2022-05-16] MEDS: PHENYTOIN EXTENDED RELEASE 100 MG CAPSULE PO SCH ×2 (09:45→13:00)
[2022-05-16] MEDS ORDERED: QUET50TA PO (12:54)
[2022-05-16] MEDS ORDERED: QUETIAPINE FUMARATE 25 MG TABLET PO SCH (13:00)
[2022-05-16] MEDS ORDERED: OLANZAPINE ZYDIS 5 MG TAB.RAPDIS PO SCH (17:00)
[2022-05-17] MEDS ORDERED: LORAZEPAM 1 MG TABLET PO SCH (09:00)
== END 2022-05-16 14:18 | DRG 640 ==
LOC: ER 20:37 → TELE1 23:33
PROVIDERS: ADMIT Internal Medicine; ATTEND Nurse Practitioner Acute Care
PROC: 5A1D70Z Performance of Urinary Filtration, Intermittent, Less than 6 Hours Per Day (ICD-10-PCS; 2022-05-15)
PROC: 30233N1 Transfusion of Nonautologous Red Blood Cells into Peripheral Vein, Percutaneous Approach (ICD-10-PCS; principal; 2022-05-16)
DX: E87.5 Hyperkalemia (principal); G93.41 Metabolic encephalopathy; N18.6 End stage renal disease; I12.0 Hypertensive chronic kidney disease with stage 5 chronic kidney disease or end stage renal disease; F03.92 Unspecified dementia, unspecified severity, with psychotic disturbance; F03.94 Unspecified dementia, unspecified severity, with anxiety; Z99.2 Dependence on renal dialysis; E11.22 Type 2 diabetes mellitus with diabetic chronic kidney disease; Z86.16 Personal history of COVID-19; Z79.899 Other long term (current) drug therapy; G40.909 Epilepsy, unspecified, not intractable, without status epilepticus; F29 Unspecified psychosis not due to a substance or known physiological condition; J44.9 Chronic obstructive pulmonary disease, unspecified; M89.8X9 Other specified disorders of bone, unspecified site; F41.9 Anxiety disorder, unspecified; F25.0 Schizoaffective disorder, bipolar type; Z20.822 Contact with and (suspected) exposure to COVID-19; D63.1 Anemia in chronic kidney disease; Z91.15 Patient's noncompliance with renal dialysis
CPT/HCPCS: 36415; 71045-TC; 80048-TC; 80076-TC; 85025-TC; 86850-TC; C9803; G0378; G0480; J0610; J1815; J2060; J3490; J7030; P9016

== ENCOUNTER 2022-05-30 16:46 | Inpatient (IN) | payer MEDICARE, OTHER ==
[~2022-05-30] VITALS: Ht 172.7 cm; Wt 86.6 kg
[~2022-05-30 16:46] MED LIST changes: +QUET50TA PO
--- NOTE | 2022-05-30 16:55 | NUR ---
RECEIVED PT 66 YRS MALE TRANSFER BY EMT FROM [facility] FOR LOW HGB PT AWAKE FALLOW COMMAND NO RESPRATOR DISTRESS DINESES ANY ACTIVE BLEEDING
--- NOTE | 2022-05-30 16:58 | NUR ---
SEEN BY DR. FLORES
--- NOTE | 2022-05-30 17:00 | NUR ---
INSERTED ANGO CATHETER G 18 ON LAC BLOOD DROW AND SENT TO LAB
[2022-05-30] MEDS ORDERED: QUET25TA PO (17:16)
[2022-05-30] MEDS ORDERED: MAGN400O6 PO (17:16)
[2022-05-30] MEDS ORDERED: MAG30ORA PO (17:16)
[2022-05-30] MEDS ORDERED: PANT40TA2 PO (17:16)
[2022-05-30] MEDS ORDERED: ALLA266C2 TP (17:17)
[2022-05-30 17:18] LABS: BASOPHILS # (AUTO) 0.1 K/uL (0.0-0.2); EOSINOPHILS % (AUTO) 10.6 % (0.0-6.0); LYMPHOCYTES # (AUTO) 1.6 K/uL (0.8-4.8); LYMPHOCYTES % (AUTO) 23.7 % (20.0-44.0); MEAN CORPUSCULAR HGB CONC 34 g/dl (31.0-36.0); MEAN CORPUSCULAR VOLUME 97 fL (80-96); MONOCYTES # (AUTO) 0.8 K/uL (0.1-1.30); MONOCYTES % (AUTO) 10.9 % (2.0-12.0); NEUTROPHILS # (AUTO) 3.7 K/uL (1.8-8.9); NEUTROPHILS % (AUTO) 53.8 % (43.0-81.0); PLATELET COUNT (AUTO) 161 K/uL (150-450); RED BLOOD CELL COUNT(AUTO) 2.03 MIL/uL (4.5-6.0); WHITE BLOOD COUNT (AUTO) 6.9 K/uL (4.3-11.0)
--- NOTE | 2022-05-30 17:30 | NUR ---
JOANNE WU SENT TO LAB
--- NOTE | 2022-05-30 17:41 | NUR ---
[facility] HGB 6.[address] BARTON NOTEFED
[2022-05-30 17:42] LABS: HEMATOCRIT 20 % (39-51); HEMOGLOBIN 6.6 g/dL (13.5-17.5)
[2022-05-30 17:50] LABS: CALCIUM, SERUM 8.9 mg/dL (8.5-10.1)
[2022-05-30 17:53] LABS: ALBUMIN 3.3 g/dL (3.4-5.0); BILIRUBIN,DIRECT 0.1 mg/dL (0.0-0.2); BILIRUBIN,TOTAL 0.3 mg/dL (0.2-1.0); TOTAL PROTEIN, SERUM 6.9 g/dL (6.4-8.2)
[2022-05-30] MEDS ORDERED: ACETAMINOPHEN 325 MG TABLET PO PRN ×2 (18:00)
[2022-05-30] MEDS ORDERED: BISACODYL SUPP (10 MG) 10 MG/SUPP.RECT SUPP.RECT RC PRN (18:00)
[2022-05-30] MEDS ORDERED: ONDANSETRON HCL/PF 4 MG/2 ML VIAL IVP PRN (18:00)
[2022-05-30] MEDS ORDERED: Z GUARD REMEDY 4 OZ OINT TP PRN (18:00)
[2022-05-30] MEDS ORDERED: MAG HYDROX/AL HYDROX/SIMETH 30 ML UDC PO PRN ×2 (18:00)
[2022-05-30] MEDS ORDERED: MAGNESIUM HYDROXIDE 30 ML UDC PO PRN ×2 (18:00)
--- NOTE | 2022-05-30 18:07 | NUR ---
[facility]U REPORTED CRITICAL LAB. CREATININE - 7.9. NOTIFIED HAYLEE PEREZ AND DR. KNOTT
--- NOTE | 2022-05-30 19:30 | NUR ---
HAND OFF TED MONREAL
--- NOTE | 2022-05-30 19:45 | NUR ---
REPORT GIVEN TO RAH GABE
[2022-05-30 20:27] LABS: EOSINOPHILS % (MANUAL) 12 % (0-4); LYMPHOCYTES % (MANUAL) 15 % (16-48); MONOCYTES % (MANUAL) 9 % (0-11.0); NEUTROPHILS % (MANUAL) 64 (42-76)
--- NOTE | 2022-05-30 20:30 | NUR ---
CONSENT FOR BT OBTAINED FROM DR BEE. PATIENT IS FOR BT.
--- NOTE | 2022-05-30 20:51 | NUR ---
NS STARTED IN PREPARATION FOR BT. VS BP0 166/97mmhg, HR 85bpm, SATS 96%, T 96.7
--- NOTE | 2022-05-30 20:59 | NUR ---
getting transferred to the first floor under ACLS
[2022-05-30] MEDS ORDERED: hydrALAZINE HCL IV 20 MG VIAL IV ONE (21:00)
[2022-05-30 21:26] LABS: POTASSIUM 5.4 mmol/L (3.5-5.1)
[2022-05-30 21:29] LABS: CREATININE 7.9 mg/dL (0.6-1.3)
--- NOTE | 2022-05-30 21:30 | NUR ---
MEDICAL CHIEF TECHNICIANSTITCH MARKER NOTES: RECEIVED PATIENT AWAKE TRANSFER VIA GURNEY PLACED COMFORTABLY ON BED, BED IN LOW POSITION, CALL LIGHTS WITHIN REACH, NO COMPLAIN OF PAIN AND DISCOMFORT AT THIS TIME, ON ROOM AIR SATURATING WELL, PATIENT ON TELEL MONITOR- SR-77 IV LINE AT LAC#20 WITH ONGOING BLOOD TRANSFUSION OF 1 PRBC INFUSING WELL, PATIENT IS ON HEMO DIALYSIS DONE SATURDAY WITH LEFT CHEST WALL HD PERMA CATH NO BLEEDING WAS OBSERVED, NO PERSONAL BELONGINGS, SKIN ASSESSMENT TO BE DONE LATER AFTER BLOOD TRANSFUSION, DUE MEDICATION GIVEN, KEPT CLEAN AND DRY ALL NEEDS MET WILL CONTINUE TO MONITOR.
[2022-05-30 21:51] VITALS: BP 150/90
[2022-05-30] MEDS: LEVETIRACETAM (250 MG) 250 MG TABLET PO SCH (22:08)
[2022-05-30] MEDS: DIVALPROEX SODIUM 125 MG CAP.SPRINK PO SCH (22:09)
[2022-05-30] MEDS: QUETIAPINE FUMARATE 25 MG TABLET PO SCH (22:09)
[2022-05-30] MEDS ORDERED: hydrALAZINE HCL IV 20 MG VIAL ONE (23:44)
--- NOTE | 2022-05-30 23:56 | NUR ---
RN NOTES: BLOOD TRANSFUSION DONE AT 2330 NO COMPLAIN OF PAIN AND DISCOMFORT ART THIS TIME, V/S ARE FOLLOWS: BP-185/95, HR-80, TEMP-98.2, RESPIRATION 20, GIVEN APRESOLINE 10 MG IV ONE TIME, PATIENT SLEEP COMFORTABLY, WILL CONTINUE TO MONITOR.
[2022-05-31] VITALS: BP 172/92
[2022-05-31 00:03] VITALS: BP_SYST 172; BP_SYST 185; BP_DIAS 92; BP_DIAS 95
[2022-05-31 01:11] LABS: BASOPHILS # (AUTO) 0.1 K/uL (0.0-0.2); BASOPHILS % (AUTO) 0.8 % (0.0-2.0); EOSINOPHILS % (AUTO) 9.7 % (0.0-6.0); LYMPHOCYTES # (AUTO) 1.6 K/uL (0.8-4.8); LYMPHOCYTES % (AUTO) 22.1 % (20.0-44.0); MEAN CORPUSCULAR HGB CONC 33 g/dl (31.0-36.0); MEAN CORPUSCULAR VOLUME 94 fL (80-96); MONOCYTES # (AUTO) 0.8 K/uL (0.1-1.30); MONOCYTES % (AUTO) 10.7 % (2.0-12.0); NEUTROPHILS # (AUTO) 4.1 K/uL (1.8-8.9); NEUTROPHILS % (AUTO) 56.7 % (43.0-81.0); PLATELET COUNT (AUTO) 134 K/uL (150-450); RED BLOOD CELL COUNT(AUTO) 2.14 MIL/uL (4.5-6.0); WHITE BLOOD COUNT (AUTO) 7.3 K/uL (4.3-11.0)
[2022-05-31 01:22] LABS: HEMATOCRIT 20 % (39-51); HEMOGLOBIN 6.7 g/dL (13.5-17.5)
--- NOTE | 2022-05-31 01:30 | NUR ---
RN NOTES: RECEIVED A CRITICAL LAB OF HGB AT 6.7, PATIENT IS S/P BLOOD TRANSFUSION OF 1PRBC FOR HGB-6.6, NOTIFY HOSPITALIST AND ORDER H AND H NOW IF HGB LESS THAN 7 TRANSFUSE 1 UNIT OF PRBC NOTED AND CARRY OUT.
[2022-05-31 03:18] LABS: HEMOGLOBIN 7.3 g/dL (13.5-17.5)
[2022-05-31 04:00] VITALS: BP 172/92
[2022-05-31] MEDS: LORAZEPAM 1 MG TABLET PO SCH (04:40)
--- NOTE | 2022-05-31 05:56 | NUR ---
RN NOTES: PATIENT REFUSED 0400 V/S PATIENT WAS ONGOING HEMO DIALYSIS.
--- NOTE | 2022-05-31 06:41 | NUR ---
CAREER SERVICES ASSISTANT CLOSING NOTES: PATIENT AWAKE IN BED, WITH ONGOING DIALYSIS, BED IN LOW POSITION CALL LIGHTS WITHIN REACH, NO COMPLAIN OF PAIN AND DISCOMFORT AT THIS TIME, ON ROOM AIR SATURATING WELL, PATIENT IS A/O X3-4 ABLE TO MAKE NEEDS KNOWN, AMBULATORY WITH ASSIST, ON TELE [id number], PATIENT IS S/P BLOOD TRANSFUSION WITHI MOST RECENT HGB AT 7.3 POST BT, ONGOING DIALYSIS , PATIENT CONSTANTLY SCREAM AND AGITATES, 2 MG LORAZEPAM PO GIVEN PRN FOR HD WAS GIVEN, PATIENT KEPT CLEAN AND DRY ALL NEEDS MET, ENDORSE TO INCOMING SHIFT.
--- NOTE | 2022-05-31 07:35 | NUR ---
RN OPENING NOTE PATIENT AWAKE IN BED, JUST COMPLETED HD SESSION, BED IN LOW POSITION CALL LIGHTS WITHIN REACH, NO COMPLAIN OF PAIN AND DISCOMFORT AT THIS TIME, ON ROOM AIR SATURATING WELL, PATIENT IS A/O X3-4 ABLE TO MAKE NEEDS KNOWN, AMBULATORY WITH ASSIST, ON TELE [id number], PATIENT IS S/P BLOOD TRANSFUSION WITHI MOST RECENT HGB AT 7.3. WILL CONTINUE TO MONITOR.
[2022-05-31] MEDS: PANTOPRAZOLE 40 MG TABLET.DR PO SCH (07:51)
[2022-05-31] MEDS: SEVELAMER CARBONATE 800 MG TABLET PO SCH ×3 (07:53→17:35)
[2022-05-31 08:00] VITALS: BP 152/87
[2022-05-31] MEDS: PROSOURCE / PROSTAT (PYXIS) 30 ML UDC PO SCH ×3 (09:53→17:13)
[2022-05-31] MEDS: PHENYTOIN EXTENDED RELEASE 100 MG CAPSULE PO SCH ×3 (09:57→17:35)
[2022-05-31] MEDS: LEVETIRACETAM (250 MG) 250 MG TABLET PO SCH ×2 (09:57→21:27)
[2022-05-31] MEDS: DIVALPROEX SODIUM 125 MG CAP.SPRINK PO SCH ×2 (09:57→21:27)
[2022-05-31] MEDS: QUETIAPINE FUMARATE 25 MG TABLET PO SCH ×4 (09:58→21:26)
[2022-05-31] MEDS: BENZTROPINE MESYLATE (1 MG) 1 MG TABLET PO SCH (09:58)
[2022-05-31 10:05] LABS: BASOPHILS # (AUTO) 0.1 K/uL (0.0-0.2); BASOPHILS % (AUTO) 1.6 % (0.0-2.0); EOSINOPHILS % (AUTO) 10.6 % (0.0-6.0); HEMATOCRIT 22 % (39-51); HEMOGLOBIN 7.3 g/dL (13.5-17.5); LYMPHOCYTES # (AUTO) 0.8 K/uL (0.8-4.8); LYMPHOCYTES % (AUTO) 15.3 % (20.0-44.0); MEAN CORPUSCULAR HGB CONC 34 g/dl (31.0-36.0); MEAN CORPUSCULAR VOLUME 94 fL (80-96); MONOCYTES # (AUTO) 0.6 K/uL (0.1-1.30); MONOCYTES % (AUTO) 11.4 % (2.0-12.0); NEUTROPHILS # (AUTO) 3.2 K/uL (1.8-8.9); NEUTROPHILS % (AUTO) 61.1 % (43.0-81.0); PLATELET COUNT (AUTO) 133 K/uL (150-450); RED BLOOD CELL COUNT(AUTO) 2.32 MIL/uL (4.5-6.0); WHITE BLOOD COUNT (AUTO) 5.3 K/uL (4.3-11.0)
[2022-05-31 10:18] LABS: ALBUMIN 2.9 g/dL (3.4-5.0); BILIRUBIN,TOTAL 0.2 mg/dL (0.2-1.0); CALCIUM, SERUM 8.4 mg/dL (8.5-10.1); CREATININE 5.2 mg/dL (0.6-1.3); MAGNESIUM 1.9 mg/dL (1.8-2.4); PHOSPHORUS 4.3 mg/dL (2.5-4.9); POTASSIUM 4.3 mmol/L (3.5-5.1); TOTAL PROTEIN, SERUM 6.3 g/dL (6.4-8.2)
[2022-05-31 11:42] LABS: BASOPHILS % (MANUAL) 0 % (0.0-2.0); EOSINOPHILS % (MANUAL) 10 % (0-4); LYMPHOCYTES % (MANUAL) 29 % (16-48); MONOCYTES % (MANUAL) 4 % (0-11.0); NEUTROPHILS % (MANUAL) 57 (42-76)
[2022-05-31 12:00] VITALS: BP 138/79
[2022-05-31] MEDS ORDERED: EPOETIN ALFA-EPBX 4,000 UNIT/ML VIAL IV SCH (15:00)
[2022-05-31 16:00] VITALS: BP 140/78
--- NOTE | 2022-05-31 19:34 | NUR ---
RN CLOSING NOTE PATIENT AWAKE IN BED, BED IN LOW POSITION CALL LIGHTS WITHIN REACH, NO COMPLAIN OF PAIN AND DISCOMFORT AT THIS TIME, ON ROOM AIR SATURATING WELL, PATIENT IS A/O X3-4 ABLE TO MAKE NEEDS KNOWN, AMBULATORY WITH ASSIST. HEMO DIALYSIS SESSION COMPLETED AT 7:30AM WITH 2000ML OUT. WILL ENDORSE TO INCOMING SHIFT
--- NOTE | 2022-05-31 19:44 | NUR ---
noc rn opening note received patient in bed, screaming, responding to internal stimuli, spitting. Phrases such as "I'LL KILL YOU, BITCH" noted. left subclavian HD catheter in place. Patient now on M/S. Hgb now 7.3. no fluids running. Patient just wants to be left a lone at this time. will monitor.
--- NOTE | 2022-05-31 19:56 | NUR ---
noc rn note patient refused 2000 V/S. screaming and not wanting to be touched and to quote "LEAVE ME ALONE!".
--- NOTE | 2022-05-31 21:13 | NUR ---
noc rn note Report given to RAH García for continuity of patient care.
--- NOTE | 2022-05-31 21:15 | NUR ---
FIELD PARTY MANAGER NOTE PATIENT REFUSED TO HAVE HIS VITAL SIGNS TAKEN AT 2000H PER SAWMILL RELIEF WORKER
--- NOTE | 2022-05-31 21:20 | NUR ---
[employer] OPENING NOTE RECEIVED PATIENT FROM [facility] MONREAL; PATIENT IN BED, WITH EPISODES OF SCREAMING, YELLING, CURSING AND SPITTING NOTED; WITH LEFT SUBCLAVIAN HD CATHETER IN PLACE; WITH NO ONGOING FLUID RUNNING; PATIENT ASKED FOR SANDWICH BUT THREW HALF OF THE SANDWICH RIGHT AFTER; ALSO ASKED FOR CHOCOLATE PUDDING AND FINISHED IT WELL; STILL WITH EPISODES OF TALKING TO SELF AND YELLING; WILL CONTINUE TO MONITOR THROUGHOUT SHIFT
--- NOTE | 2022-06-01 06:20 | NUR ---
JEWEL INSPECTOR NOTE PATIENT REFUSED TO HAVE HIS BLOOD DRAWN PER LAB STAFF; NOTED TO BE CURSING, SCREAMING AND SPITTING OUT SALIVA TO STAFF
--- NOTE | 2022-06-01 06:50 | NUR ---
CHAINSTITCH SEWING MACHINE OPERATOR CLOSING NOTE PATIENT IN BED; STABLE ON ROOM AIR, BREATHING EVENLY AND NO DISTRESS NOTED; WITH EPISODES OF SCREAMING, YELLING, CURSING AND SPITTING NOTED; WITH LEFT SUBCLAVIAN HD CATHETER IN PLACE; WITH NO ONGOING FLUID RUNNING; WAS ABLE TO TAKE ALL ORAL MEDICATIONS DURING THE SHIFT; NO COMPLAINS OF PAIN AND DISCOMFORT AT THIS TIME; SAFETY MEASURES IMPLEMENTED, BED IN LOW AND LOCKED POSITION, SIDE RAILS UP X 2; WILL ENDORSE TO AM NURSE FOR STEVEN.
--- NOTE | 2022-06-01 07:25 | NUR ---
patient walking naked and going to other pt. room ,screaming.obtained sitter order,nursing notified.
--- NOTE | 2022-06-01 07:28 | NUR ---
sitter placed at bedside.
[2022-06-01] MEDS: PANTOPRAZOLE 40 MG TABLET.DR PO SCH (07:31)
[2022-06-01] MEDS: SEVELAMER CARBONATE 800 MG TABLET PO SCH ×2 (07:32→12:25)
[2022-06-01] MEDS: PROSOURCE / PROSTAT (PYXIS) 30 ML UDC PO SCH ×2 (08:15→12:25)
--- NOTE | 2022-06-01 08:15 | NUR ---
PATIENT REFUSED THE 0800 VITAL SIGNS
[2022-06-01] MEDS: BENZTROPINE MESYLATE (1 MG) 1 MG TABLET PO SCH (08:41)
[2022-06-01] MEDS: QUETIAPINE FUMARATE 25 MG TABLET PO SCH (08:41)
[2022-06-01] MEDS: DIVALPROEX SODIUM 125 MG CAP.SPRINK PO SCH (08:41)
[2022-06-01] MEDS: PHENYTOIN EXTENDED RELEASE 100 MG CAPSULE PO SCH ×2 (08:41→12:25)
[2022-06-01] MEDS: LEVETIRACETAM (250 MG) 250 MG TABLET PO SCH (08:41)
[2022-06-01] MEDS ORDERED: OLANZAPINE 10 MG VIAL IM ONE (09:00)
[2022-06-01] MEDS ORDERED: LORAZEPAM 1 MG TABLET PO PRN (10:00)
[2022-06-01] MEDS ORDERED: Quetiapine Fumarate PO (10:06)
[2022-06-01] MEDS ORDERED: EPOE40007 IV (10:06)
[2022-06-01] MEDS: LORAZEPAM 1 MG TABLET PO SCH (10:47)
--- NOTE | 2022-06-01 11:05 | NUR ---
DISCHARGE REPORT GIVEN TO RAH KEE AT [facility]. I WENT THROUGH ALL DISCHARGE INSTRUCTIONS.
[2022-06-01 12:21] VITALS: BP 181/110
[2022-06-01] MEDS ORDERED: hydrALAZINE HCL 50 MG TABLET PO ONE (12:30)
[2022-06-01] MEDS ORDERED: QUETIAPINE FUMARATE 100 MG TABLET PO SCH (13:00)
[2022-06-01] MEDS ORDERED: EPOETIN ALFA (4000 UNIT) 4,000 UNIT/ML VIAL SQ ONE (15:00)
== END 2022-06-01 12:30 | DRG 682 ==
LOC: ER 16:52 → TELE1 19:31 → MEDSG1 06-01 08:56
PROVIDERS: ADMIT Nurse Practitioner Acute Care; ATTEND Nurse Practitioner Acute Care
PROC: 30233N1 Transfusion of Nonautologous Red Blood Cells into Peripheral Vein, Percutaneous Approach (ICD-10-PCS; principal; 2022-05-30)
PROC: 5A1D70Z Performance of Urinary Filtration, Intermittent, Less than 6 Hours Per Day (ICD-10-PCS; 2022-05-31)
DX: I12.0 Hypertensive chronic kidney disease with stage 5 chronic kidney disease or end stage renal disease (principal); G93.41 Metabolic encephalopathy; N18.6 End stage renal disease; E44.0 Moderate protein-calorie malnutrition; F03.94 Unspecified dementia, unspecified severity, with anxiety; E11.22 Type 2 diabetes mellitus with diabetic chronic kidney disease; G40.909 Epilepsy, unspecified, not intractable, without status epilepticus; J44.9 Chronic obstructive pulmonary disease, unspecified; Z20.822 Contact with and (suspected) exposure to COVID-19; I25.2 Old myocardial infarction; Z99.2 Dependence on renal dialysis; Z91.15 Patient's noncompliance with renal dialysis; Z79.899 Other long term (current) drug therapy; Z88.6 Allergy status to analgesic agent; R26.9 Unspecified abnormalities of gait and mobility; Z88.8 Allergy status to other drugs, medicaments and biological substances; E88.09 Other disorders of plasma-protein metabolism, not elsewhere classified; F41.9 Anxiety disorder, unspecified; E86.1 Hypovolemia; E87.5 Hyperkalemia; M89.8X9 Other specified disorders of bone, unspecified site; F25.0 Schizoaffective disorder, bipolar type; D63.1 Anemia in chronic kidney disease
CPT/HCPCS: 36415; 71045-TC; 80048-TC; 80053-TC; 80076-TC; 83735-TC; 84100-TC; 85025-TC; 85027-TC; 85730-TC; 86706; 86850-TC; 87081-TC; 87340; 90935-TC; G0378; J0360; J0885; J3490; J7030; P9016

== ENCOUNTER 2022-06-04 16:34 | Inpatient (IN) | payer MEDICARE, OTHER ==
[~2022-06-04] VITALS: Ht 172.7 cm; Wt 86.6 kg
[~2022-06-04 16:34] MED LIST changes: +ALLA266C2 TP; +EPOE40007 IV; +MAG30ORA PO; +MAGN400O6 PO; -OLAN5TAB6 PO; +QUET25TA PO; -QUET50TA PO; +Quetiapine Fumarate PO; -RISP1TAB7 PO
[2022-06-04 17:38] LABS: BASOPHILS # (AUTO) 0.1 K/uL (0.0-0.2); BASOPHILS % (AUTO) 0.9 % (0.0-2.0); EOSINOPHILS % (AUTO) 13.6 % (0.0-6.0); LYMPHOCYTES # (AUTO) 1.4 K/uL (0.8-4.8); LYMPHOCYTES % (AUTO) 22.6 % (20.0-44.0); MEAN CORPUSCULAR HGB CONC 33 g/dl (31.0-36.0); MEAN CORPUSCULAR VOLUME 96 fL (80-96); MONOCYTES # (AUTO) 0.7 K/uL (0.1-1.30); NEUTROPHILS # (AUTO) 3.2 K/uL (1.8-8.9); NEUTROPHILS % (AUTO) 50.9 % (43.0-81.0); PLATELET COUNT (AUTO) 152 K/uL (150-450); RED BLOOD CELL COUNT(AUTO) 2.05 MIL/uL (4.5-6.0); WHITE BLOOD COUNT (AUTO) 6.2 K/uL (4.3-11.0)
[2022-06-04 17:46] LABS: HEMOGLOBIN 6.5 g/dL (13.5-17.5)
[2022-06-04 17:47] LABS: HEMATOCRIT 20 % (39-51)
[2022-06-04 18:21] LABS: ALBUMIN 3.1 g/dL (3.4-5.0); BILIRUBIN,TOTAL 0.3 mg/dL (0.2-1.0); CALCIUM, SERUM 8.7 mg/dL (8.5-10.1); POTASSIUM 5.9 mmol/L (3.5-5.1); TOTAL PROTEIN, SERUM 6.3 g/dL (6.4-8.2)
[2022-06-04 18:30] LABS: CREATININE 8.8 mg/dL (0.6-1.3)
[2022-06-04 18:53] LABS: EOSINOPHILS % (MANUAL) 12 % (0-4); LYMPHOCYTES % (MANUAL) 20 % (16-48); MONOCYTES % (MANUAL) 13 % (0-11.0); NEUTROPHILS % (MANUAL) 55 (42-76)
[2022-06-04] MEDS ORDERED: SODIUM POLYSTYRENE SULFONATE 15 G/60 ML BOTTLE PO ONE (19:00)
[2022-06-04] MEDS ORDERED: CALCIUM CHLORIDE 1,000 MG/10 ML DISP.SYRIN IV ONE (19:00)
[2022-06-04] MEDS ORDERED: Calcium Gluconate 1GM/10ML 4.65 MEQ in IV NS 0.9% 100 ML IV ONE (19:00)
[2022-06-04] MEDS ORDERED: DEXTROSE 50%-WATER 50 ML DISP.SYRIN IV ONE (19:00)
[2022-06-04] MEDS ORDERED: INSULIN REGULAR, HUMAN 100 UNIT/ML 10 ML VIAL IV ONE (19:00)
[2022-06-04] MEDS ORDERED: SODIUM BICARBONATE SYR 50 MEQ/50 ML DISP.SYRIN IV ONE (19:00)
[2022-06-04] MEDS ORDERED: OLANZAPINE 10 MG VIAL IM ONE ×2 (19:30→19:33)
[2022-06-04] MEDS ORDERED: INSULIN REGULAR, HUMAN 100 UNIT/ML 10 ML VIAL ONE (19:34)
[2022-06-04] MEDS ORDERED: SODIUM POLYSTYRENE SULFONATE 15 G/60 ML BOTTLE ONE (19:34)
[2022-06-04] MEDS ORDERED: SODIUM BICARBONATE SYR 50 MEQ/50 ML DISP.SYRIN ONE (19:34)
[2022-06-04] MEDS ORDERED: DEXTROSE 50%-WATER 50 ML DISP.SYRIN ONE (19:34)
[2022-06-04] MEDS ORDERED: LORAZEPAM 1 MG TABLET PO SCH (20:30)
[2022-06-04] MEDS ORDERED: MAGNESIUM HYDROXIDE 30 ML UDC PO PRN ×2 (20:30→21:00)
[2022-06-04] MEDS ORDERED: MAG HYDROX/AL HYDROX/SIMETH 30 ML UDC PO PRN ×2 (20:30→21:00)
[2022-06-04] MEDS ORDERED: ACETAMINOPHEN 325 MG TABLET PO PRN ×2 (20:30→21:00)
[2022-06-04] MEDS ORDERED: BISACODYL SUPP (10 MG) 10 MG/SUPP.RECT SUPP.RECT RC PRN (20:30)
[2022-06-04] MEDS ORDERED: LORAZEPAM 1 MG TABLET PO PRN (20:48)
[2022-06-04] MEDS ORDERED: Z GUARD REMEDY 4 OZ OINT TP PRN (21:00)
[2022-06-04] MEDS ORDERED: ONDANSETRON HCL/PF 4 MG/2 ML VIAL IVP PRN (21:00)
[2022-06-04] MEDS ORDERED: *INSULIN REGULAR(HUMULIN R)HUM 100 UNIT/ML VIAL SQ PRN (21:00)
[2022-06-04] MEDS ORDERED: DEXTROSE 50%-WATER 50 ML DISP.SYRIN IV PRN (21:00)
[2022-06-04] MEDS ORDERED: CLONIDINE HCL 0.1 MG TABLET PO PRN (21:00)
[2022-06-04] MEDS ORDERED: INSULIN REGULAR, HUMAN 100 UNIT/ML 3 ML VIAL SQ PRN (21:00)
[2022-06-04] MEDS ORDERED: LORAZEPAM INJ 2 MG/ML VIAL IV PRN (21:00)
[2022-06-04] MEDS: LEVETIRACETAM (250 MG) 250 MG TABLET PO SCH (21:17)
[2022-06-04] MEDS: DIVALPROEX SODIUM 125 MG CAP.SPRINK PO SCH (21:17)
[2022-06-04] MEDS: QUETIAPINE FUMARATE 100 MG TABLET PO SCH (21:18)
[2022-06-04 21:20] VITALS: BP 192/105
[2022-06-04] MEDS: BLOOD SUGAR DIAGNOSTIC 1 EACH STRIP VI SCH (22:00)
[2022-06-05 04:00] VITALS: BP 176/110
[2022-06-05] MEDS: BLOOD SUGAR DIAGNOSTIC 1 EACH STRIP VI SCH ×4 (07:21→22:00)
[2022-06-05 07:30] VITALS: BP 196/114
[2022-06-05] MEDS: BENZTROPINE MESYLATE (1 MG) 1 MG TABLET PO SCH (08:34)
[2022-06-05] MEDS: LEVETIRACETAM (250 MG) 250 MG TABLET PO SCH ×2 (08:35→22:14)
[2022-06-05] MEDS: QUETIAPINE FUMARATE 100 MG TABLET PO SCH ×4 (08:36→22:14)
[2022-06-05] MEDS: PANTOPRAZOLE 40 MG TABLET.DR PO SCH (08:36)
[2022-06-05] MEDS: DIVALPROEX SODIUM 125 MG CAP.SPRINK PO SCH ×2 (08:37→22:13)
[2022-06-05] MEDS: PHENYTOIN EXTENDED RELEASE 100 MG CAPSULE PO SCH ×3 (08:37→16:15)
[2022-06-05] MEDS: SEVELAMER CARBONATE 800 MG TABLET PO SCH ×3 (08:37→17:16)
[2022-06-05 09:53] VITALS: BP 178/101
[2022-06-05] MEDS: hydrALAZINE HCL IV 20 MG VIAL IV PRN (09:56)
[2022-06-05 12:45] LABS: CALCIUM, SERUM 8.8 mg/dL (8.5-10.1); MAGNESIUM 2.3 mg/dL (1.8-2.4); PHOSPHORUS 5.4 mg/dL (2.5-4.9)
[2022-06-05 13:01] LABS: POTASSIUM 6.3 mmol/L (3.5-5.1)
[2022-06-05 13:02] LABS: CREATININE 8.2 mg/dL (0.6-1.3)
[2022-06-05 14:50] LABS: BASOPHILS % (AUTO) 0.8 % (0.0-2.0); EOSINOPHILS % (AUTO) 11.8 % (0.0-6.0); LYMPHOCYTES % (AUTO) 19.1 % (20.0-44.0); MEAN CORPUSCULAR HGB CONC 33 g/dl (31.0-36.0); MEAN CORPUSCULAR VOLUME 94 fL (80-96); MONOCYTES # (AUTO) 0.6 K/uL (0.1-1.30); NEUTROPHILS # (AUTO) 2.9 K/uL (1.8-8.9); NEUTROPHILS % (AUTO) 56.3 % (43.0-81.0); PLATELET COUNT (AUTO) 144 K/uL (150-450); RED BLOOD CELL COUNT(AUTO) 2.14 MIL/uL (4.5-6.0); WHITE BLOOD COUNT (AUTO) 5.2 K/uL (4.3-11.0)
[2022-06-05 14:51] LABS: HEMATOCRIT 20 % (39-51); HEMOGLOBIN 6.7 g/dL (13.5-17.5)
[2022-06-05] MEDS ORDERED: EPOETIN ALFA-EPBX 4,000 UNIT/ML VIAL IV SCH (15:00)
[2022-06-05 15:31] LABS: IRON, SERUM 62 ug/dl (50-175); TOTAL IRON BINDING CAPACITY 173 ug/dl (250-450)
[2022-06-05 16:00] VITALS: BP 159/85
[2022-06-05 16:12] LABS: FERRITIN 1667 ng/mL (8-388)
[2022-06-05 16:53] LABS: BAND % (MANUAL) 1 % (0.0-5.0); EOSINOPHILS % (MANUAL) 10 % (0-4); LYMPHOCYTES % (MANUAL) 21 % (16-48); MONOCYTES % (MANUAL) 4 % (0-11.0); NEUTROPHILS % (MANUAL) 64 (42-76)
[2022-06-05] MEDS ORDERED: LORAZEPAM 1 MG TABLET PO ONE (18:00)
[2022-06-05] MEDS ORDERED: MORPHINE SULFATE INJ 2 MG/ML DISP.SYRIN IV ONE ×2 (18:00→18:30)
[2022-06-05] MEDS ORDERED: LORAZEPAM INJ 2 MG/ML VIAL IV ONE (18:30)
[2022-06-05] MEDS ORDERED: LIDOCAINE 1% INJ 50 ML MDV IJ ONE (18:30)
[2022-06-05] MEDS ORDERED: LORAZEPAM INJ 2 MG/ML VIAL IV STA (18:36)
[2022-06-05 19:45] LABS: BASOPHILS % (AUTO) 0.9 % (0.0-2.0); EOSINOPHILS % (AUTO) 12.3 % (0.0-6.0); LYMPHOCYTES % (AUTO) 19.8 % (20.0-44.0); MEAN CORPUSCULAR HGB CONC 33 g/dl (31.0-36.0); MEAN CORPUSCULAR VOLUME 94 fL (80-96); MONOCYTES # (AUTO) 0.5 K/uL (0.1-1.30); MONOCYTES % (AUTO) 9.5 % (2.0-12.0); NEUTROPHILS # (AUTO) 2.9 K/uL (1.8-8.9); NEUTROPHILS % (AUTO) 57.5 % (43.0-81.0); PLATELET COUNT (AUTO) 136 K/uL (150-450); RED BLOOD CELL COUNT(AUTO) 2.11 MIL/uL (4.5-6.0); WHITE BLOOD COUNT (AUTO) 5.1 K/uL (4.3-11.0)
[2022-06-05 19:57] LABS: HEMATOCRIT 20 % (39-51); HEMOGLOBIN 6.6 g/dL (13.5-17.5)
[2022-06-05 21:16] LABS: EOSINOPHILS % (MANUAL) 12 % (0-4); LYMPHOCYTES % (MANUAL) 18 % (16-48); MONOCYTES % (MANUAL) 2 % (0-11.0); NEUTROPHILS % (MANUAL) 68 (42-76)
[2022-06-05 21:44] VITALS: BP 164/86
[2022-06-06] MEDS: hydrALAZINE HCL IV 20 MG VIAL IV PRN (04:44)
[2022-06-06 05:14] VITALS: BP 188/98
[2022-06-06 07:07] LABS: IMMUNOGLOBULIN A, SERUM 372 mg/dL (61-437); IMMUNOGLOBULIN G, SERUM 1266 mg/dL (603-1613); IMMUNOGLOBULIN M, SERUM 75 mg/dL (20-172)
[2022-06-06 08:00] VITALS: BP_SYST 156; BP_SYST 175; BP_DIAS 90
[2022-06-06] MEDS: QUETIAPINE FUMARATE 100 MG TABLET PO SCH (09:45)
[2022-06-06] MEDS: LEVETIRACETAM (250 MG) 250 MG TABLET PO SCH (09:45)
[2022-06-06] MEDS: BENZTROPINE MESYLATE (1 MG) 1 MG TABLET PO SCH (09:45)
[2022-06-06] MEDS: PHENYTOIN EXTENDED RELEASE 100 MG CAPSULE PO SCH (09:45)
[2022-06-06] MEDS: DIVALPROEX SODIUM 125 MG CAP.SPRINK PO SCH (09:45)
[2022-06-06] MEDS: SEVELAMER CARBONATE 800 MG TABLET PO SCH (09:48)
[2022-06-06] MEDS: PANTOPRAZOLE 40 MG TABLET.DR PO SCH (09:48)
[2022-06-06 10:17] LABS: BASOPHILS % (AUTO) 0.4 % (0.0-2.0); HEMATOCRIT 27 % (39-51); HEMOGLOBIN 8.7 g/dL (13.5-17.5); LYMPHOCYTES # (AUTO) 0.9 K/uL (0.8-4.8); LYMPHOCYTES % (AUTO) 8.2 % (20.0-44.0); MEAN CORPUSCULAR HGB CONC 33 g/dl (31.0-36.0); MEAN CORPUSCULAR VOLUME 94 fL (80-96); MONOCYTES # (AUTO) 1.2 K/uL (0.1-1.30); MONOCYTES % (AUTO) 10.9 % (2.0-12.0); NEUTROPHILS # (AUTO) 8.3 K/uL (1.8-8.9); NEUTROPHILS % (AUTO) 75.5 % (43.0-81.0); PLATELET COUNT (AUTO) 179 K/uL (150-450); RED BLOOD CELL COUNT(AUTO) 2.81 MIL/uL (4.5-6.0)
[2022-06-06] MEDS: BLOOD SUGAR DIAGNOSTIC 1 EACH STRIP VI SCH ×2 (10:25→12:00)
[2022-06-07 10:07] LABS: *SPE A/G RATIO 1.1 (0.7-1.7); *SPE ALPHA-1-GLOBULIN 0.3 g/dL (0.0-0.4); *SPE ALPHA-2-GLOBULIN 0.5 g/dL (0.4-1.0); *SPE BETA GLOBULIN 1.1 g/dL (0.7-1.3); *SPE M-SPIKE Not Observed g/dL (Not Observed)
== END 2022-06-06 13:09 | DRG 811 ==
LOC: ER 16:46 → TELE 19:25
PROVIDERS: ADMIT Internal Medicine; ATTEND Internal Medicine
PROC: 5A1D70Z Performance of Urinary Filtration, Intermittent, Less than 6 Hours Per Day (ICD-10-PCS; principal; 2022-06-04)
PROC: 07DR3ZX Extraction of Iliac Bone Marrow, Percutaneous Approach, Diagnostic (ICD-10-PCS; 2022-06-05)
PROC: 30233N1 Transfusion of Nonautologous Red Blood Cells into Peripheral Vein, Percutaneous Approach (ICD-10-PCS; 2022-06-05)
DX: D64.9 Anemia, unspecified (principal); G93.41 Metabolic encephalopathy; N18.6 End stage renal disease; I12.0 Hypertensive chronic kidney disease with stage 5 chronic kidney disease or end stage renal disease; F01.54 Vascular dementia, unspecified severity, with anxiety; F01.53 Vascular dementia, unspecified severity, with mood disturbance; E44.0 Moderate protein-calorie malnutrition; E87.5 Hyperkalemia; E11.22 Type 2 diabetes mellitus with diabetic chronic kidney disease; Z99.2 Dependence on renal dialysis; D63.1 Anemia in chronic kidney disease; Z20.822 Contact with and (suspected) exposure to COVID-19; G40.909 Epilepsy, unspecified, not intractable, without status epilepticus; J44.9 Chronic obstructive pulmonary disease, unspecified; F31.9 Bipolar disorder, unspecified; I25.2 Old myocardial infarction; R26.9 Unspecified abnormalities of gait and mobility; Z88.8 Allergy status to other drugs, medicaments and biological substances; Z79.899 Other long term (current) drug therapy; Z88.6 Allergy status to analgesic agent; K21.9 Gastro-esophageal reflux disease without esophagitis; Z78.1 Physical restraint status; M19.90 Unspecified osteoarthritis, unspecified site; Z86.718 Personal history of other venous thrombosis and embolism; F17.210 Nicotine dependence, cigarettes, uncomplicated; D50.9 Iron deficiency anemia, unspecified; D72.10 Eosinophilia, unspecified; F25.9 Schizoaffective disorder, unspecified; E88.09 Other disorders of plasma-protein metabolism, not elsewhere classified; M89.8X9 Other specified disorders of bone, unspecified site
CPT/HCPCS: 36415; 71045-TC; 80048-TC; 80053-TC; 80164-TC; 82607-TC; 82728-TC; 82784; 82962-TC; 83540-TC; 83735-TC; 84100-TC; 84155; 84165; 84484-TC; 85025-TC; 85730-TC; 86334; 86850-TC; 87081-TC; 90935-TC; A4223; G0378; J0360; J0610; J0885; J1815; J2060; J2270; J3490; J7030; P9016

== ENCOUNTER 2022-07-24 06:51 | Inpatient (IN) | payer MEDICARE, OTHER ==
[~2022-07-24] VITALS: Ht 190.5 cm; Wt 93.0 kg
--- NOTE | 2022-07-24 07:00 | NUR ---
ELODIA Jacinto FROM [facility] FOR C/O SOB DURING HD. PT UNABLE TO COMPLETE HD SESSION. PATIENT IS AOX4. ABLE TO MAKE NEEDS KNOWN. PT HAS LEFT SUBCLAVIAN CATH. CAME WITH O2 INH AT 4LPM SAT 98%. PLACED COMFORTABLY IN BED. VITALS CHECKED.
--- NOTE | 2022-07-24 07:09 | NUR ---
EKG DONE AT BEDSIDE
--- NOTE | 2022-07-24 07:23 | NUR ---
REPORT GIVEN TO RAH RAMACHANDRAN
--- NOTE | 2022-07-24 07:50 | NUR ---
IV ACCESS DONE RT FOREARM 20G
[2022-07-24 07:59] LABS: BASOPHILS # (AUTO) 0.1 K/uL (0.0-0.2); BASOPHILS % (AUTO) 1.1 % (0.0-2.0); EOSINOPHILS % (AUTO) 6.1 % (0.0-6.0); HEMATOCRIT 31 % (39-51); LYMPHOCYTES # (AUTO) 0.8 K/uL (0.8-4.8); LYMPHOCYTES % (AUTO) 9.3 % (20.0-44.0); MEAN CORPUSCULAR HGB CONC 32 g/dl (31.0-36.0); MEAN CORPUSCULAR VOLUME 107 fL (80-96); MONOCYTES # (AUTO) 0.8 K/uL (0.1-1.30); MONOCYTES % (AUTO) 8.7 % (2.0-12.0); NEUTROPHILS # (AUTO) 6.5 K/uL (1.8-8.9); NEUTROPHILS % (AUTO) 74.8 % (43.0-81.0); PLATELET COUNT (AUTO) 292 K/uL (150-450); RED BLOOD CELL COUNT(AUTO) 2.91 MIL/uL (4.5-6.0); WHITE BLOOD COUNT (AUTO) 8.7 K/uL (4.3-11.0)
--- NOTE | 2022-07-24 08:04 | NUR ---
ESTUARDO COLLECTED BY BINDING FOLDER MACHINE EARLIER
[2022-07-24 08:17] LABS: ALANINE AMINOTRANSFERASE 30 U/L (12-78); ALBUMIN 3.3 g/dL (3.4-5.0); ALKALINE PHOSPHATASE 86 U/L (46-116); ASPARTATE AMINOTRANSFERASE 17 U/L (15-37); BILIRUBIN,DIRECT 0.2 mg/dL (0.0-0.2); BILIRUBIN,TOTAL 0.5 mg/dL (0.2-1.0); CALCIUM, SERUM 9.2 mg/dL (8.5-10.1); CARBON DIOXIDE 23 mmol/L (21-32); CHLORIDE 102 mmol/L (98-107); GLUCOSE 115 mg/dL (74-106); POTASSIUM 5.8 mmol/L (3.5-5.1); SODIUM SERUM 139 mmol/L (136-145); TOTAL PROTEIN, SERUM 7.5 g/dL (6.4-8.2)
[2022-07-24 08:22] LABS: UREA NITROGEN, BLOOD 88 mg/dL (7-18)
--- NOTE | 2022-07-24 08:22 | NUR ---
COVID SWAB DONE SENT TO LAB
[2022-07-24] MEDS ORDERED: AZITHROMYCIN 500 MG in IV D5W 250 ML IV ONE (09:00)
[2022-07-24] MEDS ORDERED: CEFTRIAXONE 1 G in IV D5W 50 ML IV ONE (09:00)
--- NOTE | 2022-07-24 09:45 | NUR ---
ROOM [facility]
--- NOTE | 2022-07-24 10:04 | NUR ---
report given to JOHN MONREAL FOR CONTINUATION OF CARE
--- NOTE | 2022-07-24 10:20 | NUR ---
SUPERVISOR SEWER SYSTEMMIDDLE CARD TENDER NOTE: RECEIVED PT FROM ER AOX2-3 ABLE TO MAKE NEEDS KNOWN. PT REFUSE N/C O2 SAT 90% BUT NOT IN RESP DISTRESS NOTED. EXPLAINED THE RISK AND BENEFITS OF WEARING THE NC. CONT TO STRONGLY REFUSE. EXPLAINED RISK AGAIN X3. CONT TO REFUSE. MADE AWARE. 1 ON 1 SITTER AT BEDSIDE. PT RISK FOR FALL. NOTED WITH BEHAVIOR YELLING AND GETTING OUT OF BED. R FOREARM 20G, PATENT AND INTACT. FLUSHING WELL. SKIN ASSESSMENT DONE. PHOTOS TAKEN AND KEPT IN CHART. WOUND CONSULT. ON DIALYSIS Addendum: 07/24/22 at 1446 by JOHN COOPER RN BED KEPT LOW AND LOCK POSITION. SAFETY PRECAUTION IN PLACED. S/R UP X3. CALL LIGHT WITHIN REACH.
[2022-07-24] MEDS ORDERED: MAGNESIUM HYDROXIDE 30 ML UDC PO PRN (11:30)
[2022-07-24] MEDS ORDERED: ONDANSETRON HCL/PF 4 MG/2 ML VIAL IVP PRN (11:30)
[2022-07-24] MEDS ORDERED: ACETAMINOPHEN 325 MG TABLET PO PRN (11:30)
[2022-07-24] MEDS ORDERED: Z GUARD REMEDY 4 OZ OINT TP PRN (11:30)
[2022-07-24] MEDS ORDERED: MAG HYDROX/AL HYDROX/SIMETH 30 ML UDC PO PRN (11:30)
[2022-07-24] MEDS: CEFTRIAXONE 1 G in IV D5W 50 ML IV SCH (12:36)
[2022-07-24 13:30] VITALS: BP 170/90
[2022-07-24] MEDS ORDERED: BISACODYL SUPP (10 MG) 10 MG/SUPP.RECT SUPP.RECT RC PRN (13:30)
[2022-07-24] MEDS: QUETIAPINE FUMARATE 100 MG TABLET PO SCH ×3 (13:56→20:48)
[2022-07-24] MEDS: EPOETIN ALFA-EPBX 4,000 UNIT/ML VIAL IV SCH (15:09)
[2022-07-24] MEDS: PROSOURCE / PROSTAT (PYXIS) 30 ML UDC PO SCH (16:40)
[2022-07-24] MEDS: PHENYTOIN EXTENDED RELEASE 100 MG CAPSULE PO SCH (16:41)
[2022-07-24] MEDS: QUETIAPINE FUMARATE 25 MG TABLET PO SCH ×2 (16:41→20:51)
[2022-07-24 16:54] VITALS: BP 157/87
[2022-07-24] MEDS: SEVELAMER CARBONATE 800 MG TABLET PO SCH (18:02)
--- NOTE | 2022-07-24 18:25 | NUR ---
RN CLOSING NOTE: PT IN BED AOX2-3 WIHT PERIODS OF CONFUSION, YELLING, AND SCREAMING. REORIENDTED TO ROOM AND SAFETY. REMINDED NOT TO YELL AND SCREAM. NEEDS ATTENDED PROMPTLY. SITTER AT BEDSIDE. NO RESP DISTRESS NOTED. SKIN WARM AND DRY TO TOUCH. RFA 20 G. PATENT AND INTACT. NO INFILTRATION NOTED. SAFETY REMINDER RENDERED. ON TELE SR 80. BED KEPT LOW AND LOCK POSITION. CALL LIGHT WITHIN REACH.
--- NOTE | 2022-07-24 19:45 | NUR ---
RAMP MANAGER OPENING NOTE RECEIVED PATIENT IN BED; AWAKE, ALERT AND ORIENTED X 1. WITH PERIODS OF CONFUSION. ON ROOM AIR; TOLERATING WELL. BREATHING EVEN AND NONLABORED. NO C/O ANY PAIN OR DISCOMFORT MADE AT THIS TIME. ON TELE MONITORING WHICH READS SR HR-85 BPM. WITH IV ACCESS ON RIGHT FOREARM 20g; INTACT, PATENT AND SALINE LOCKED. ABLE TO MAKE NEEDS KNOWN. WITH SITTER AT BEDSIDE. FALL AND SAFETY PRECAUTIONS INITIATED: CALL LIGHT AND TABLE WITHIN REACH, SIDE RAILS UP X 3, BED IN LOWEST LOCKED POSITION. WILL CONTINUE TO MONITOR THROUGHOUT SHIFT.
[2022-07-24 20:00] VITALS: BP 145/78
[2022-07-24] MEDS: LEVETIRACETAM (250 MG) 250 MG TABLET PO SCH (20:47)
[2022-07-24] MEDS: DIVALPROEX SODIUM 125 MG CAP.SPRINK PO SCH (20:47)
[2022-07-25] VITALS: BP 139/75
[2022-07-25] MEDS: LORAZEPAM 1 MG TABLET PO PRN ×3 (00:07→15:30)
--- NOTE | 2022-07-25 00:07 | NUR ---
RN NOTE PATIENT'S KEPT ON STANDING IN AND OUT BED. PATIENT KEPT SHOUTING AND YELLING TO BRING HIM BACK TO [facility]. PRN ATIVAN 2 MG GIVEN PO ORDERED; TOLERATING WELL. WILL CONTINUE TO MONITOR.
[2022-07-25 04:00] VITALS: BP 148/82
--- NOTE | 2022-07-25 04:30 | NUR ---
RN NOTE PATIENT PULLED IV ACCESS. PRESSURE DRESSING APPLIED ON RIGHT FOREARM. PATIENT REFUSED TO HAVE IV REINSERTION FOR NOW.
--- NOTE | 2022-07-25 07:00 | NUR ---
BUSINESS EXCELLENCE MANAGER OPENING NOTE RECEIVED PATIENT IN BED; AWAKE, ALERT AND ORIENTED X 1. WITH PERIODS OF CONFUSION. ON ROOM AIR, TOLERATING WELL, BREATHING EVEN AND NONLABORED WITH NO COMPLAINS OF PAIN, DISCOMFORT OR SHORTNESS OF BREATH AT THIS TIME. ON TELE MONITORING HR 76. NO IV ACCESS IN PLACE, PATIENT REFUSING IV, CHARGE NURSE MADE AWARE. TABLE TO MAKE NEEDS KNOWN. WITH SITTER AT BEDSIDE. SAFETY PRECAUTIONS IN PLACE, CALL LIGHT AND TABLE WITHIN REACH, SIDE RAILS UP X 3, BED IN LOWEST LOCKED POSITION. WILL CONTINUE TO MONITOR.
--- NOTE | 2022-07-25 07:10 | NUR ---
OUTDOOR STUDIES DIRECTOR CLOSING NOTE PATIENT IN BED; AWAKE, A/O X 1. WITH PERIODS OF CONFUSION. STABLE ON ROOM AIR. IN NO ACUTE DISTRESS. NO C/O ANY PAIN OR DISCOMFORT MADE AT THIS TIME. ON TELE MONITORING WHICH READS SR HR-85 BPM. ALL NEEDS ATTENDED. FALL AND SAFETY PRECAUTIONS MAINTAINED: CALL LIGHT AND TABLE WITHIN REACH, SIDE RAILS UP X 3, BED IN LOWEST LOCKED POSITION. ENDORSED TO MORNING SHIFT FOR CONTINUITY OF CARE.
[2022-07-25] MEDS: SEVELAMER CARBONATE 800 MG TABLET PO SCH ×3 (07:57→17:06)
[2022-07-25] MEDS: PANTOPRAZOLE 40 MG TABLET.DR PO SCH (07:57)
[2022-07-25 08:00] VITALS: BP 160/108
[2022-07-25] MEDS ORDERED: AZITHROMYCIN 500 MG in IV D5W 250 ML IV SCH (09:30)
--- NOTE | 2022-07-25 10:00 | NUR ---
RN NOTE SPOKE TO DOCTOR CONG MOORE IN PERSON, PER DOCTOR, OK TO GIVE BOTH SEROQUEL 100 MG AND 50 MG TOGETHER.
[2022-07-25] MEDS: BENZTROPINE MESYLATE (1 MG) 1 MG TABLET PO SCH (10:03)
[2022-07-25] MEDS: PHENYTOIN EXTENDED RELEASE 100 MG CAPSULE PO SCH ×3 (10:03→17:06)
[2022-07-25] MEDS: QUETIAPINE FUMARATE 100 MG TABLET PO SCH ×4 (10:03→20:04)
[2022-07-25] MEDS: QUETIAPINE FUMARATE 25 MG TABLET PO SCH ×4 (10:03→20:04)
[2022-07-25] MEDS: DIVALPROEX SODIUM 125 MG CAP.SPRINK PO SCH ×2 (10:03→20:04)
[2022-07-25] MEDS: LEVETIRACETAM (250 MG) 250 MG TABLET PO SCH ×2 (10:04→20:04)
[2022-07-25] MEDS: AZITHROMYCIN 250 MG TABLET PO SCH (10:05)
[2022-07-25] MEDS: PROSOURCE / PROSTAT (PYXIS) 30 ML UDC PO SCH ×4 (10:06→17:07)
[2022-07-25] MEDS ORDERED: OLANZAPINE 10 MG VIAL IM ONE (10:30)
[2022-07-25 12:00] VITALS: BP 160/100
[2022-07-25] MEDS: CEFTRIAXONE 1 G in IV D5W 50 ML IV SCH (12:22)
[2022-07-25 14:29] LABS: MAGNESIUM 2.5 mg/dL (1.8-2.4); PHOSPHORUS 5.5 mg/dL (2.5-4.9)
[2022-07-25 16:00] VITALS: BP 135/86
--- NOTE | 2022-07-25 18:54 | NUR ---
CHILDREN TEACHER CLOSING NOTE PATIENT IN BED; AWAKE, ALERT AND ORIENTED X 1. WITH PERIODS OF CONFUSION. ON ROOM AIR, OS SAT 95%, TOLERATING WELL, BREATHING EVEN AND NONLABORED WITH NO COMPLAINS OF PAIN, DISCOMFORT OR SHORTNESS OF BREATH AT THIS TIME. IV ACCESS ON R FORE ARM ROSENDO 20 SL. PATENT AND FLUSHING WELL. ABLE TO MAKE NEEDS KNOWN. WITH SITTER AT BEDSIDE. SAFETY PRECAUTIONS IN PLACE, CALL LIGHT AND TABLE WITHIN REACH, SIDE RAILS UP X 3, BED IN LOWEST LOCKED POSITION. REPORT GIVEN TO MEAT MOLDER NURSE FOR CONTINUING OF CARE.
--- NOTE | 2022-07-25 19:30 | NUR ---
MS RN OPENING NOTE RECEIVED PT RESTING IN BED, VERBALLY RESPONSIVE. A/O X1 AND CONFUSED, SITTER AT BED SIDE. PT STABLE ON ROOM AIR. NO SOB OR S/S OF RESPIRATORY DISTRESS. BREATHING EVEN AND UNLABORED. IV ACCESS RFA 20G SL, INTACT AND PATENT. SAFETY PRECAUTIONS IN PLACE. BED IN LOWEST LOCKED POSITION, SIDE RAILS UP X3, CALL LIGHT AND TABLE WITHIN REACH. ALL NEEDS MET AT THIS TIME.
[2022-07-25 20:00] VITALS: BP 150/84
--- NOTE | 2022-07-25 21:19 | NUR ---
UNABLE TO PERFORM LOWER EXTREMITY BILATERAL VENOUS U/S. PT REFUSED AND WANTS TO SLEEP. SITTER ADVISED TEST DONE DECLAN MORNING.
[2022-07-26] VITALS: BP 111/71
--- NOTE | 2022-07-26 00:49 | NUR ---
RN NOTE HD FINISHED AT THIS TIME. 2.5 L OUT. CURRENT BP 111/71.
--- NOTE | 2022-07-26 06:43 | NUR ---
MS RN CLOSING NOTE PT RESTING IN BED, VERBALLY RESPONSIVE. A/O X1 AND CONFUSED, SITTER AT BED SIDE. PT STABLE ON ROOM AIR. NO SOB OR S/S OF RESPIRATORY DISTRESS. BREATHING EVEN AND UNLABORED. REMOVED IV ACCESS, REINSERTED IV ACCESS LFA 20G AFTER PT AGREED, BUT THEN PT RIPPED IT OUT AND SHOUTED " I DON'T WANT A NEEDLE IN MY ARM". PT REFUSED ANOTHER REINSERTION AFTER THAT. ALL DUE MEDS GIVEN ORDERED. HD DONE WITH 2.5 L OUT. SAFETY PRECAUTIONS IN PLACE AT ALL TIMES. BED IN LOWEST LOCKED POSITION, SIDE RAILS UP X3, CALL LIGHT AND TABLE WITHIN REACH. ALL NEEDS MET AT THIS TIME AND WILL ENDORSE TO ONCOMING NURSE FOR STEVEN.
--- NOTE | 2022-07-26 07:00 | NUR ---
RN OPENING NOTE PT RESTING IN BED, VERBALLY RESPONSIVE. A/O X1 AND CONFUSED, SITTER AT BED SIDE. PT STABLE ON ROOM AIR. NO SOB OR S/S OF RESPIRATORY DISTRESS. BREATHING EVEN AND UNLABORED. NO IV ACCESS PATIENT REFUSED, CHARGED NURSE NOTIFIED. SAFETY PRECAUTIONS IN PLACE AT ALL TIMES. BED IN LOWEST LOCKED POSITION, SIDE RAILS UP X3, CALL LIGHT AND TABLE WITHIN REACH. ALL NEEDS MET, WILL CONTINUE TO MONITOR.
[2022-07-26] MEDS: PANTOPRAZOLE 40 MG TABLET.DR PO SCH (07:45)
[2022-07-26] MEDS: SEVELAMER CARBONATE 800 MG TABLET PO SCH ×3 (07:45→17:30)
[2022-07-26 08:00] VITALS: BP 150/95
[2022-07-26] MEDS: DIVALPROEX SODIUM 125 MG CAP.SPRINK PO SCH ×2 (08:51→21:03)
[2022-07-26] MEDS: LEVETIRACETAM (250 MG) 250 MG TABLET PO SCH ×2 (08:52→21:02)
[2022-07-26] MEDS: QUETIAPINE FUMARATE 100 MG TABLET PO SCH (08:52)
[2022-07-26] MEDS: BENZTROPINE MESYLATE (1 MG) 1 MG TABLET PO SCH (08:52)
[2022-07-26] MEDS: PHENYTOIN EXTENDED RELEASE 100 MG CAPSULE PO SCH ×3 (08:52→17:30)
[2022-07-26] MEDS: PROSOURCE / PROSTAT (PYXIS) 30 ML UDC PO SCH ×3 (08:55→17:00)
[2022-07-26] MEDS: QUETIAPINE FUMARATE 25 MG TABLET PO SCH (08:56)
[2022-07-26] MEDS: AZITHROMYCIN 250 MG TABLET PO SCH (09:00)
--- NOTE | 2022-07-26 09:29 | NUR ---
WOUND CARE CONSULT: PT PRESENTS WITH SMALL SCABS AND SCRATCH DOBBS ON BILATERAL LEGS WELL SACRAL AND BACK SCARS WITH NONTENDER CALLUS TO LEFT HEEL, ALL PRESENT ON ADMISSION. DEFER TO PMD FOR SKIN CONDITION/ITCHING OF LOWER EXTREMITIES. PT IS CONTINENT AND AMBULATORY. WILL SEE PRN.
[2022-07-26] MEDS ORDERED: HALOPERIDOL 5 MG TABLET PO PRN (11:00)
[2022-07-26] MEDS ORDERED: OLANZAPINE 10 MG VIAL IM ONE (11:30)
[2022-07-26 13:09] LABS: BASOPHILS # (AUTO) 0.1 K/uL (0.0-0.2); BASOPHILS % (AUTO) 1.6 % (0.0-2.0); EOSINOPHILS % (AUTO) 9.6 % (0.0-6.0); HEMATOCRIT 31 % (39-51); HEMOGLOBIN 9.9 g/dL (13.5-17.5); LYMPHOCYTES # (AUTO) 1.4 K/uL (0.8-4.8); LYMPHOCYTES % (AUTO) 26.8 % (20.0-44.0); MEAN CORPUSCULAR HGB CONC 32 g/dl (31.0-36.0); MEAN CORPUSCULAR VOLUME 108 fL (80-96); MONOCYTES # (AUTO) 0.6 K/uL (0.1-1.30); MONOCYTES % (AUTO) 11.5 % (2.0-12.0); NEUTROPHILS # (AUTO) 2.6 K/uL (1.8-8.9); NEUTROPHILS % (AUTO) 50.5 % (43.0-81.0); PLATELET COUNT (AUTO) 226 K/uL (150-450); WHITE BLOOD COUNT (AUTO) 5.2 K/uL (4.3-11.0)
[2022-07-26 13:40] LABS: CALCIUM, SERUM 8.6 mg/dL (8.5-10.1); MAGNESIUM 2.4 mg/dL (1.8-2.4); PHOSPHORUS 6.6 mg/dL (2.5-4.9); POTASSIUM 5.5 mmol/L (3.5-5.1)
[2022-07-26 13:45] LABS: CREATININE 8.3 mg/dL (0.6-1.3)
[2022-07-26] MEDS: OLANZAPINE 5 MG TABLET PO SCH ×2 (13:57→17:30)
[2022-07-26] MEDS: CEFTRIAXONE 1 G in IV D5W 50 ML IV SCH (13:58)
[2022-07-26] MEDS: EPOETIN ALFA-EPBX 4,000 UNIT/ML VIAL IV SCH (14:01)
[2022-07-26 16:00] VITALS: BP 164/96
[2022-07-26] MEDS: METOPROLOL TARTRATE 25 MG TABLET PO SCH ×2 (18:31→21:03)
--- NOTE | 2022-07-26 19:05 | NUR ---
RN CLOSING NOTE PT RESTING IN BED, VERBALLY RESPONSIVE. A/O X1 AND CONFUSED. PT STABLE ON ROOM AIR. NO SOB OR S/S OF RESPIRATORY DISTRESS. BREATHING EVEN AND UNLABORED. IV ACCESS ON RIGHT HAND SL 20G PATENT AND FLUSHING WELL. ALL PRESCRIBED MEDICATIONS AND SKIN CARE PERFORMED ACCORDING TO HOSPITAL PROTOCOL AND ORDERS. SAFETY PRECAUTIONS IN PLACE AT ALL TIMES. BED IN LOWEST LOCKED POSITION, SIDE RAILS UP X3, CALL LIGHT AND TABLE WITHIN REACH. ALL NEEDS MET, REPORT GIVEN TO FURNITURE UPHOLSTERY MECHANIC NURSE
--- NOTE | 2022-07-26 19:20 | NUR ---
FILM EDITOR SUPERVISOR OPENING NOTE RECEIVED PT RESTING IN BED, EYES CLOSED, EASY TO AROUSE, BREATHING EVEN AND UNLABORED, ON RA, AFEBRILE, SKIN WARM AND DRY TOUCH, R WRIST #20 G C/D/I, NO S/S OF ACUTE DISTRESS NOTED AT THIS TIME, ALL SAFETY MEASURES ARE IN PLACE, CALL LIGHT WITH IN REACH, WILL CONTINUE TO MONITOR
[2022-07-27] VITALS: BP 159/94
--- NOTE | 2022-07-27 02:00 | NUR ---
PT REMOVED HIS PERIPHERAL IV, 0 BLEEDING AT THIS TIME.
--- NOTE | 2022-07-27 06:05 | NUR ---
PT REFUSED AM LABS AT THIS TIME
--- NOTE | 2022-07-27 06:07 | NUR ---
CLEAT BLANKER CLOSING NOTE PT RESTING IN BED, ASLEEP, IN STABLE CONDITION, BREATHING EVEN AND UNLABORED, AFEBRILE, ON RA, DECLINED PAIN THIS SHIFT, ALL DUE MEDS GIVEN PER MD ORDERS, TOLERATED WELL, ALL BASIC NEEDS MET AND ANTICIPATED, ALL SAFETY MEASURES IN PLACE, WILL CONTINUE TO MONITOR
--- NOTE | 2022-07-27 07:05 | NUR ---
RN OPENING NOTE RECEIVED PT RESTING IN BED, VERBALLY RESPONSIVE. A/O X1 AND CONFUSED, PT STABLE ON ROOM AIR. NO SOB OR S/S OF RESPIRATORY DISTRESS. BREATHING EVEN AND UNLABORED. NO IV ACCESS, PT TOOK IT OUT, HD PORT ON LEFT CHEST INTACT. SAFETY PRECAUTIONS IN PLACE. BED IN LOWEST LOCKED POSITION, SIDE RAILS UP X3, CALL LIGHT AND TABLE WITHIN REACH. WILL CONTINUE TO MONITOR.
[2022-07-27] MEDS: PANTOPRAZOLE 40 MG TABLET.DR PO SCH (07:47)
[2022-07-27] MEDS: SEVELAMER CARBONATE 800 MG TABLET PO SCH ×2 (07:47→12:36)
[2022-07-27 08:00] VITALS: BP 141/82
[2022-07-27] MEDS: PHENYTOIN EXTENDED RELEASE 100 MG CAPSULE PO SCH ×2 (08:22→12:36)
[2022-07-27] MEDS: OLANZAPINE 5 MG TABLET PO SCH ×2 (08:23→12:36)
[2022-07-27] MEDS: LEVETIRACETAM (250 MG) 250 MG TABLET PO SCH (08:23)
[2022-07-27] MEDS: BENZTROPINE MESYLATE (1 MG) 1 MG TABLET PO SCH (08:23)
[2022-07-27] MEDS: METOPROLOL TARTRATE 25 MG TABLET PO SCH (08:25)
[2022-07-27] MEDS: DIVALPROEX SODIUM 125 MG CAP.SPRINK PO SCH (08:26)
[2022-07-27] MEDS: PROSOURCE / PROSTAT (PYXIS) 30 ML UDC PO SCH ×2 (08:33→12:36)
[2022-07-27] MEDS ORDERED: ALTEPLASE CATHFLO 2 MG/VIAL XX ONE (09:30)
[2022-07-27] MEDS: AZITHROMYCIN 250 MG TABLET PO SCH (09:31)
[2022-07-27 13:00] VITALS: BP 99/61
[2022-07-27] MEDS ORDERED: ATORVASTATIN 10 MG TABLET PO SCH (13:00)
[2022-07-27] MEDS ORDERED: hydrALAZINE HCL 25 MG TABLET PO SCH (13:00)
[2022-07-27] MEDS: CEFTRIAXONE 1 G in IV D5W 50 ML IV SCH (14:00)
[2022-07-27] MEDS ORDERED: ATOR20TA PO (14:39)
[2022-07-27] MEDS ORDERED: METO25TA6 PO (14:40)
[2022-07-27] MEDS ORDERED: OLAN5TAB3 PO (14:41)
[2022-07-27] MEDS ORDERED: AMOX-430 PO (14:43)
[2022-07-27] MEDS ORDERED: AZIT500T PO (14:44)
--- NOTE | 2022-07-27 16:44 | NUR ---
PATIENT DISCHARGED IN A STABLE CONDITION, WENT TO REHAB. PT IS AMBULATORY, NO SOB, TEACHING PROVIDED, VERBALIZED UNDERSTANDING.
== END 2022-07-27 19:44 | DRG 280 ==
LOC: ER 06:56 → TELE1 09:47 → MEDSG1 07-25 10:28
PROVIDERS: ADMIT Nurse Practitioner Acute Care; ATTEND Nurse Practitioner Acute Care
PROC: 5A1D70Z Performance of Urinary Filtration, Intermittent, Less than 6 Hours Per Day (ICD-10-PCS; principal; 2022-07-24)
DX: I13.2 Hypertensive heart and chronic kidney disease with heart failure and with stage 5 chronic kidney disease, or end stage renal disease (principal); I21.A1 Myocardial infarction type 2; I50.23 Acute on chronic systolic (congestive) heart failure; J15.6 Pneumonia due to other Gram-negative bacteria; N18.6 End stage renal disease; J96.21 Acute and chronic respiratory failure with hypoxia; J44.0 Chronic obstructive pulmonary disease with (acute) lower respiratory infection; G93.49 Other encephalopathy; J98.11 Atelectasis; Z20.822 Contact with and (suspected) exposure to COVID-19; E11.22 Type 2 diabetes mellitus with diabetic chronic kidney disease; Z99.2 Dependence on renal dialysis; F03.90 Unspecified dementia, unspecified severity, without behavioral disturbance, psychotic disturbance, mood disturbance, and anxiety; Z86.718 Personal history of other venous thrombosis and embolism; G40.909 Epilepsy, unspecified, not intractable, without status epilepticus; Z86.711 Personal history of pulmonary embolism; I25.2 Old myocardial infarction; R26.2 Difficulty in walking, not elsewhere classified; Z88.8 Allergy status to other drugs, medicaments and biological substances; F41.9 Anxiety disorder, unspecified; Z91.199 Patient's noncompliance with other medical treatment and regimen due to unspecified reason; Z88.6 Allergy status to analgesic agent; Z87.891 Personal history of nicotine dependence; F09 Unspecified mental disorder due to known physiological condition; F25.0 Schizoaffective disorder, bipolar type; E83.39 Other disorders of phosphorus metabolism; D63.8 Anemia in other chronic diseases classified elsewhere; E87.5 Hyperkalemia; I42.9 Cardiomyopathy, unspecified; K21.9 Gastro-esophageal reflux disease without esophagitis; M89.8X9 Other specified disorders of bone, unspecified site; Y95 Nosocomial condition
CPT/HCPCS: 36415; 71045-TC; 80048-TC; 80076-TC; 83540-TC; 83605-TC; 83735-TC; 83880; 84100-TC; 84484-TC; 85025-TC; 85730-TC; 87040-TC; 90935-TC; 93307-TC; 93970-TC; A4223; C9803; G0378; J0456; J0696; J0885; J2997; J3490; J7030; J7050; J7060